=== PATIENT | female | born 1995 | race Caucasian/White ===

== ENCOUNTER 2019-05-11 13:05 | Emergency (ER) | payer OTHER, BC ==
[2019-05-11] MEDS ORDERED: DIAZEPAM 5 MG TABLET ONE (14:49)
[2019-05-11] MEDS ORDERED: IBUPROFEN 400 MG TAB ONE (14:49)
--- NOTE | 2019-05-11 15:41 | RAD REPORT ---
EXAM DESCRIPTION: RAD - Lumbar Spine 3 Views - 05/11/2019 3:33 pm CLINICAL HISTORY: LOWER BACK PAIN Radiculopathy COMPARISON: No comparisons FINDINGS: Vertebral body heights appear maintained. No compression fracture noted. Disc spaces are m aintained. No spondylolysis or spondylolisthesis. Cholecystectomy clips. IMPRESSION: Negative study.
[2019-05-11 16:18] LABS: Urine Blood 3+ (NEG); Urine Glucose NEGATIVE (NEG); Urine Protein 2+ (NEG); Urine pH 5.5 (5.0-7.0)
--- NOTE | 2019-05-11 16:21 | ER ---
Nurse's Notes [facility] Name: Deven Alfaro Age: 23 yrs Sex: Female : 1995 Arrival Date: 05/11/2019 Time: 13:05 Bed 14 Private MD: Diagnosis: Low back pain Presentation: 05/11 13:20 Presenting complaint: Patient states: BACK PAIN AND OVARY PAIN FOR "MONTHS". Transition bp of care: patient was not received from another setting of care. Onset of symptoms is unknown. Risk Assessment: Do you want to hurt yourself or someone else? Patient reports no desire to harm self or others. Initial Sepsis Screen: Does the patient meet any 2 criteria? No. Patient's initial sepsis screen is negative. Does the patient have a suspected source of infection? No. Patient's initial sepsis screen is negative. Care prior to arrival: None. 13:20 Method Of Arrival: Ambulatory bp 13:20 Acuity: SAMI 5 bp Historical: - Allergies: 13:21 Lamictal; bp 13:21 Morphine; bp 13:21 [place]; bp - Home Meds: 13:21 None [Active]; bp - PMHx: 13:21 None; bp - Immunization history:: Adult Immunizations up to date. - Social history:: Smoking status: Patient/guardian denies using tobacco. - Ebola Screening: : No symptoms or risks identified at this time. Screenin:53 Abuse screen: Denies threats or abuse. Denies injuries from another. Nutritional sv screening: No deficits noted. Tuberculosis screening: No symptoms or risk factors identified. Fall Risk None identified. Assessment: 14:50 General: Appears in no apparent distress. uncomfortable, well developed, Behavior is sv calm, cooperative, appropriate for age, Reports that she does not have a ride home, unable to give pt the Valium d/t no ride home. Pt understood, informed Can VINES. Pain: Complains of pain in back. Neuro: Level of Consciousness is awake, alert, obeys commands, Oriented to person, place, time, situation, Gait is steady, Speech is normal. Respiratory: Respiratory effort is even, unlabored, Respiratory pattern is regular, symmetrical. Derm: Skin is pink, warm \\T\\ dry. 16:30 Reassessment: Patient appears in no apparent distress at this time. Patient and/or sv family updated on plan of care and expected duration. Pain level reassessed. Patient is alert, oriented x 3, equal unlabored respirations, skin warm/dry/pink. Vital Signs: 13:21 BP 103 / 80; Pulse 85; Resp 16; Temp 98; Pulse Ox 100% ; Weight 104.33 kg; Height 5 ft. bp (152.40 cm); 13:21 Body Mass Index 44.92 (104.33 kg, 152.40 cm) bp ED Course: 13:05 Patient arrived in ED. as 13:21 Triage completed. bp 13:21 Arm band placed on. bp 13:50 Can Arora PA is PHCP. jmm 13:51 Clive Stern MD is Attending Physician. m 13:53 Fadia Noel, RN is Primary Nurse. sv 13:53 Patient has correct armband on for positive identification. Bed in low position. Call sv light in reach. Door closed. Head of bed elevated. 14:59 Radiology exam delayed due to test not completed at this time. az 15:15 Urine Dipstick--Ancillary (enter results) Sent. sv 15:15 Urine --Ancillary (enter results) Sent. sv 15:34 Lumbar Spine (3 Views) XRAY In Process Unspecified. EDMS 15:45 Awaiting radiology results. sv 16:34 No provider procedures requiring assistance completed. Patient did not have IV access sv during this emergency room visit. Administered Medications: 14:52 Drug: Ibuprofen 800 mg Route: PO; sv 15:30 Follow up: Response: No adverse reaction sv 16:32 Not Given (pt does not have a ride home): Valium 5 mg PO once sv Outcome: 16:20 Discharge ordered by MD. jmm 16:34 Discharged to home ambulatory. sv 16:34 Condition: stable 16:34 Discharge instructions given to patient, Instructed on discharge instructions, follow up and referral plans. medication usage, Demonstrated understanding of instructions, follow-up care, medications, Prescriptions given X 2. 16:34 Patient left the ED. sv Signatures: Dispatcher [employer] EDMS Fadia Noel, BHUPINDER ROE Can Arora PA PA jmm Martinez, Amelia as Peltier, Brian, RN RN Irina Bejarano Corrections: (The following items were deleted from the chart) 15:02 14:50 General: Appears in no apparent distress. uncomfortable, well developed, Behavior sv is calm, cooperative, appropriate for age, sv
--- NOTE | 2019-05-11 16:21 | EDPHYS ---
Physician Documentation [facility] Name: Deven Alfaro Age: 23 yrs Sex: Female : 1995 Arrival Date: 05/11/2019 Time: 13:05 Bed 14 Private MD: ED Physician Clive Stern HPI: 05/11 14:13 This 23 yrs old Female presents to ER via Ambulatory with complaints of Back jmm Pain. 14:13 The patient presents with pain that is acute. Onset: The symptoms/episode jmm began/occurred gradually. The pain radiates to the pelvis. Associated signs and symptoms: Pertinent negatives: abdominal pain, dysuria, fever, numbness, tingling, urinary retention, weakness. Modifying factors: the patient symptoms are aggravated by movement. This is a 23 year old female with no chronic medical conditions that presents to the ED with lower back pain which began 2 weeks ago. Patient denies known injury. Patient states when the pain initially developed she was evaluated by her MANAGER GENERATION with normal US. Since then, the patient has begun her cycle with increased pain. Denies fever. . Historical: - Allergies: 13:21 Lamictal; bp 13:21 Morphine; bp 13:21 [place]; bp - Home Meds: 13:21 None [Active]; bp - PMHx: 13:21 None; bp - Immunization history:: Adult Immunizations up to date. - Social history:: Smoking status: Patient/guardian denies using tobacco. - Ebola Screening: : No symptoms or risks identified at this time. ROS: 14:13 Constitutional: Negative for fever, chills, and weight loss, Cardiovascular: Negative jmm for chest pain, palpitations, and edema, Respiratory: Negative for shortness of breath, cough, wheezing, and pleuritic chest pain, Abdomen/GI: Negative for abdominal pain, nausea, vomiting, diarrhea, and constipation. 14:13 Back: Positive for pain with movement. 14:13 : Positive for pelvic pain, vaginal bleeding, Negative for urinary symptoms. 14:13 All other systems are negative. Exam: 14:13 Head/Face: atraumatic. Eyes: EOMI, no conjunctival erythema appreciated ENT: Moist jmm Mucus Membranes Neck: Trachea midline, Supple Chest/axilla: Normal chest wall appearance and motion. Cardiovascular: Regular rate and rhythm. No edema appreciated Respiratory: Normal respirations, no respiratory distress appreciated Abdomen/GI: Non distended, soft 14:13 Constitutional: The patient appears in no acute distress, alert, awake. 14:13 Back: lower lumbar tenderness on palpation, paraspinal tenderness on palpation, no erythema or induration appreciated,. 14:13 Musculoskeletal/extremity: ROM: intact in all extremities. 14:13 Skin: Appearance: Color: normal in color. 14:13 Neuro: Orientation: is normal, Mentation: is normal, Memory: is normal. 14:13 Psych: Behavior/mood is pleasant, cooperative. Vital Signs: 13:21 BP 103 / 80; Pulse 85; Resp 16; Temp 98; Pulse Ox 100% ; Weight 104.33 kg; Height 5 ft. bp (152.40 cm); 13:21 Body Mass Index 44.92 (104.33 kg, 152.40 cm) bp MDM: 14:13 Patient medically screened. la 16:19 Data reviewed: vital signs, nurses notes. Counseling: I had a detailed discussion with [facility] the patient and/or guardian regarding: the historical points, exam findings, and any diagnostic results supporting the discharge/admit diagnosis, radiology results, the need for outpatient follow up, to return to the emergency department if symptoms worsen or persist or if there are any questions or concerns that arise at home. 17:18 ED course: Imaging studies negative. Patient is point tender in the lumbar region and [facility] paraspinal region. Symptoms may be due to MS pain opposed to pelvic pain with radiation. Patient is given strict return precautions. Patient understood and agrees with the plan of care. . 05/11 15:14 Order name: Urine Dipstick--Ancillary (enter results); Complete Time: 16:19 05/11 15:14 Order name: Urine --Ancillary (enter results); Complete Time: 16:19 05/11 14:48 Order name: Urine Dipstick-Ancillary (obtain specimen); Complete Time: 15:15 [facility] 05/11 14:48 Order name: Lumbar Spine (3 Views) XRAY; Complete Time: 16:08 [facility] 05/11 14:48 Order name: Urine Test (obtain specimen); Complete Time: 15:14 [facility] Administered Medications: 14:52 Drug: Ibuprofen 800 mg Route: PO; sv 15:30 Follow up: Response: No adverse reaction sv 16:32 Not Given (pt does not have a ride home): Valium 5 mg PO once sv Disposition: 05/12 06:24 Co-signature as Attending Physician, Clive Stern MD I agree with the assessment and la plan of care. Disposition: 05/11/19 16:20 Discharged to Home. Impression: Low back pain. - Condition is Stable. - Discharge Instructions: Back Pain, Adult. - Prescriptions for Cephalexin 500 mg Oral Capsule - take 1 capsule by ORAL route every 12 hours for 10 days; 20 capsule. Zanaflex 4 mg Oral Tablet - take 1 tablet by ORAL route every 8 hours As needed; 20 tablet. - Medication Reconciliation Form, Thank You Letter, Antibiotic Education, Prescription Opioid Use form. - Follow up: Private Physician; When: 2 - 3 days; Reason: Recheck today's complaints, Continuance of care, Re-evaluation by your physician. Signatures: Dispatcher [employer] Fadia Voss RN RN sv Anderson, Corey, MD MD cha Mickail, Joel, PA PA Angel Kraus, RN RN bp Corrections: (The following items were deleted from the chart) 05/11 16:34 16:20 05/11/2019 16:20 Discharged to Home. Impression: Low back pain. Condition is sv Stable. Forms are Medication Reconciliation Form, Thank You Letter, Antibiotic Education, Prescription Opioid Use. Follow up: Private Physician; When: 2 - 3 days; Reason: Recheck today's complaints, Continuance of care, Re-evaluation by your physician. donte
[2019-05-11 17:11] VITALS: BP 103/80; TEMP 98; O2SAT 100
== END 2019-05-11 16:34 | disposition home or self-care (01) ==
LOC: ER 13:05
DX: M54.5 Low back pain (principal); Z88.5 Allergy status to narcotic agent; Z88.8 Allergy status to other drugs, medicaments and biological substances
CPT/HCPCS: 72100; 81003; 81025; 99284

== ENCOUNTER 2019-11-09 11:12 | Emergency (ER) | payer OTHER, BC ==
--- OUTSIDE RECORDS SUMMARY | 2019-11-09 11:18 | XMS REPORT ---
:1995 Author Organization [facility] t Address [address] [place] [address] Dr. Villalpando [address] [place] [id number] Care Team Providers Name Role Phone Unavailable Unavailable Unavailable Problems This patient has no known problems. Allergies, Adverse Reactions, Alerts This patient has no known allergies or adverse reactions. Medications This patient has no known medications. Encounters Start End Encounter Admission Attending Care Care Encounter Date/Time Date/Time Type Type Clinicians Facility Department ID 2019-09-03 2019-09-03 Emergency E [id number] 21:28:00 21:28:00
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
[2019-11-09] MEDS ORDERED: LIDOCAINE 1% MPF 2 ML AMPULE ONE (11:48)
[2019-11-09] MEDS ORDERED: AZITHROMYCIN 250 MG TAB ONE (11:48)
[2019-11-09] MEDS ORDERED: CEFTRIAXONE 250 MG/VIAL ONE (11:48)
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
[2019-11-09 12:16] VITALS: BP 110/72; TEMP 98; O2SAT 100
== END 2019-11-09 12:10 | disposition home or self-care (01) ==
LOC: ER 11:12
DX: Z04.41 Encounter for examination and observation following alleged adult rape (principal); F32.9 Major depressive disorder, single episode, unspecified; Z88.5 Allergy status to narcotic agent; Z88.8 Allergy status to other drugs, medicaments and biological substances
CPT/HCPCS: J2001; J0696; 96372; 99283

== ENCOUNTER 2020-01-05 10:18 | Emergency (ER) | payer BC ==
--- NOTE | 2020-01-05 11:24 | EDPHYS ---
Physician Documentation [facility] Name: Deven Alfaro Age: 24 yrs Sex: Female : 1995 Arrival Date: 01/05/2020 Time: 10:20 Bed 17 Private MD: ED Physician Bhupendra Rapp HPI: 01/04 11:21 This 24 yrs old Female presents to ER via Ambulatory with complaints of snw Nausea, Anxiety. 11:21 The patient presents to the emergency department with nausea. Onset: The snw symptoms/episode began/occurred gradually, at an unknown time. Possible causes: anxiety and panic attacks. Associated signs and symptoms: Pertinent positives: nausea, Pertinent negatives: abdominal pain, belching, constipation, dysuria, fever, hematuria, vaginal discharge. Severity of symptoms: At their worst the symptoms were moderate in the emergency department the symptoms are unchanged. The patient has experienced similar episodes in the past, pt saw psych from 17yr-19yr. Pt was on lexapro but began having SI so was weaned off. The patient has not recently seen a physician. 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 - Social history:: Smoking status: Patient reports the use of cigarette tobacco products, smokes one pack cigarettes per day. ROS: 11:20 Constitutional: Negative for fever, chills, and weight loss, Eyes: Negative for injury, snw pain, redness, and discharge, ENT: Negative for injury, pain, and discharge, Neck: Negative for injury, pain, and swelling, Cardiovascular: Negative for chest pain, palpitations, and edema, Respiratory: Negative for shortness of breath, cough, wheezing, and pleuritic chest pain, Back: Negative for injury and pain, : Negative for injury, bleeding, discharge, and swelling, MS/Extremity: Negative for injury and deformity, Skin: Negative for injury, rash, and discoloration, Neuro: Negative for headache, weakness, numbness, tingling, and seizure. 11:20 Abdomen/GI: Positive for nausea, Negative for abdominal pain. 11:20 Psych: Positive for anxiety, panic attacks. Exam: 11:20 Constitutional: This is a well developed, well nourished patient who is awake, alert, snw and in no acute distress. Head/Face: Normocephalic, atraumatic. Eyes: Pupils equal round and reactive to light, extra-ocular motions intact. Lids and lashes normal. Conjunctiva and sclera are non-icteric and not injected. Cornea within normal limits. Periorbital areas with no swelling, redness, or edema. ENT: Nares patent. No nasal discharge, no septal abnormalities noted. Tympanic membranes are normal and external auditory canals are clear. Oropharynx with no redness, swelling, or masses, exudates, or evidence of obstruction, uvula midline. Mucous membranes moist. Neck: Trachea midline, no thyromegaly or masses palpated, and no cervical lymphadenopathy. Supple, full range of motion without nuchal rigidity, or vertebral point tenderness. No Meningismus. Chest/axilla: Normal chest wall appearance and motion. Nontender with no deformity. No lesions are appreciated. Cardiovascular: Regular rate and rhythm with a normal S1 and S2. No gallops, murmurs, or rubs. Normal PMI, no JVD. No pulse deficits. Respiratory: Lungs have equal breath sounds bilaterally, clear to auscultation and percussion. No rales, rhonchi or wheezes noted. No increased work of breathing, no retractions or nasal flaring. Abdomen/GI: Soft, non-tender, with normal bowel sounds. No distension or tympany. No guarding or rebound. No evidence of tenderness throughout. Back: No spinal tenderness. No costovertebral tenderness. Full range of motion. Skin: Warm, dry with normal turgor. Normal color with no rashes, no lesions, and no evidence of cellulitis. MS/ Extremity: Pulses equal, no cyanosis. Neurovascular intact. Full, normal range of motion. Neuro: Awake and alert, GCS 15, oriented to person, place, time, and situation. Cranial nerves II-XII grossly intact. Motor strength 5/5 in all extremities. Sensory grossly intact. Cerebellar exam normal. Normal gait. 11:20 Psych: Behavior/mood is pleasant, cooperative, anxious, Affect is Oriented to person, place, time. Vital Signs: 10:32 BP 120 / 73; Pulse 76; Resp 18; Temp 97.9(TE); Pulse Ox 99% on R/A; Weight 108.86 kg tw2 (R); Height 5 ft. 0 in. (152.40 cm); Pain 0/10; 10:32 Body Mass Index 46.87 (108.86 kg, 152.40 cm) tw2 MDM: 10:54 Patient medically screened. snw 11:25 Data reviewed: vital signs, nurses notes. Data interpreted: Pulse oximetry: on room air snw is 99 %. Interpretation: normal. Counseling: I had a detailed discussion with the patient and/or guardian regarding: the historical points, exam findings, and any diagnostic results supporting the discharge/admit diagnosis, the need for outpatient follow up, for definitive care, to return to the emergency department if symptoms worsen or persist or if there are any questions or concerns that arise at home. Special discussion: Based on the history and exam findings, there is no indication for further emergent testing or inpatient evaluation. I discussed with the patient/guardian the need to see the primary care provider for further evaluation of the symptoms. I discussed with the patient/guardian the need to see the psychiatrist for further evaluation of the symptoms. 01/04 11:24 Order name: Urine Dipstick--Ancillary (enter results) bd 01/04 10:46 Order name: Urine Test (obtain specimen); Complete Time: 11:23 snw 01/04 10:46 Order name: Urine Dipstick-Ancillary (obtain specimen); Complete Time: 11:23 snw 01/04 11:24 Order name: Urine --Ancillary (enter results) bd Administered Medications: 11:33 Drug: Phenergan 25 mg Route: PO; rb1 11:44 Follow up: Response: Medication administered at discharge. rb1 Disposition: 01/05/20 11:23 Discharged to Home. Impression: Anxiety disorder, unspecified, Nausea. - Condition is Stable. - Discharge Instructions: Panic Attacks, High-Fiber Diet, Nausea, Adult, Generalized Anxiety Disorder. - Prescriptions for promethazine 25 mg Oral Tablet - take 1 tablet by ORAL route every 6 hours As needed; 20 tablet. - Work release form, Medication Reconciliation Form, Thank You Letter, Antibiotic Education, Prescription Opioid Use form. - Follow up: Emergency Department; When: As needed; Reason: Worsening of condition. Follow up: Private Physician; When: 2 - 3 days; Reason: Recheck today's complaints, Continuance of care, Re-evaluation by your physician. Addendum: 01/06/2020 13:31 Co-signature as Attending Physician, Bhupendra Rapp MD I agree with the assessment and k dr plan of care. Signatures: Dispatcher [employer] EDMD Bhupendra Rapp MD MD [facility] Caryl Duarte, CYCLE MANAGER-C CYCLE MANAGER-Csnw Tatyana Herman, RN RN rb1 Jennifer Quiñones RN RN tw2 Corrections: (The following items were deleted from the chart) 01/04 11:45 11:23 01/05/2020 11:23 Discharged to Home. Impression: Anxiety disorder, unspecified; rb1 Nausea. Condition is Stable. Forms are Medication Reconciliation Form, Thank You Letter, Antibiotic Education, Prescription Opioid Use. Follow up: Emergency Department; When: As needed; Reason: Worsening of condition. Follow up: Private Physician; When: 2 - 3 days; Reason: Recheck today's complaints, Continuance of care, Re-evaluation by your physician. snw
--- NOTE | 2020-01-05 11:24 | ER ---
Nurse's Notes [facility] Name: Deven Alfaro Age: 24 yrs Sex: Female : 1995 Arrival Date: 01/05/2020 Time: 10:20 Bed 17 Private MD: Diagnosis: Anxiety disorder, unspecified;Nausea Presentation: 01/04 10:32 Chief complaint: Patient states: i keep having panic attacks and horrible horrible tw2 nausea, i have zofran but it is not doing anything. Coronavirus screen: Patient denies a cough. Patient denies shortness of breath or difficulty breathing. Patient denies measured and/or subjective temperature greater than 100.4F prior to today's visit. Patient denies travel on a cruise ship or to a country the [facility] currently lists as an affected area. Patient denies contact with known and/or suspected case of COVID-19. Ebola Screen: Patient denies travel to an Ebola-affected area in the 21 days before illness onset. Initial Sepsis Screen: Does the patient meet any 2 criteria? No. Patient's initial sepsis screen is negative. Does the patient have a suspected source of infection? No. Patient's initial sepsis screen is negative. Risk Assessment: Do you want to hurt yourself or someone else? Patient reports no desire to harm self or others. Onset of symptoms was January 05, 2020. 10:32 Method Of Arrival: Ambulatory tw2 10:32 Acuity: [facility]I 3 tw2 Triage Assessment: 10:33 General: Appears in no apparent distress. uncomfortable, obese, well groomed, Behavior tw2 is cooperative, appropriate for age, anxious. Pain: Denies pain. GI: Reports nausea. 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 - Social history:: Smoking status: Patient reports the use of cigarette tobacco products, smokes one pack cigarettes per day. Screenin:00 Abuse screen: Denies threats or abuse. Nutritional screening: No deficits noted. rb1 Tuberculosis screening: No symptoms or risk factors identified. Fall Risk None identified. Assessment: 11:00 General: Appears in no apparent distress. Behavior is calm, cooperative. Pain: Denies rb1 pain. Neuro: Level of Consciousness is awake, alert, obeys commands, Oriented to person, place, time, situation. Neuro: Reports Anxiety with panic attacks.. Cardiovascular: Capillary refill < 3 seconds. Respiratory: Airway is patent Respiratory effort is even, unlabored, Respiratory pattern is regular, symmetrical. GI: Abdomen is non-distended, Reports nausea. : No signs and/or symptoms were reported regarding the genitourinary system. Derm: Skin is pink, warm \T\ dry. Musculoskeletal: Range of motion: intact in all extremities. Vital Signs: 10:32 BP 120 / 73; Pulse 76; Resp 18; Temp 97.9(TE); Pulse Ox 99% on R/A; Weight 108.86 kg tw2 (R); Height 5 ft. 0 in. (152.40 cm); Pain 0/10; 10:32 Body Mass Index 46.87 (108.86 kg, 152.40 cm) tw2 ED Course: 10:20 Patient arrived in ED. as 10:33 Triage completed. tw2 10:33 Caryl Duarte FNP-C [facility]. snw 10:33 Bhupendra Rapp MD is Attending Physician. snw 10:34 Arm band placed on. tw2 11:00 Patient has correct armband on for positive identification. Bed in low position. Call rb1 light in reach. Side rails up X 1. Pulse ox on. NIBP on. 11:02 Tatyana Herman, RN is Primary Nurse. rb1 11:44 No provider procedures requiring assistance completed. Patient did not have IV access rb1 during this emergency room visit. Administered Medications: 11:33 Drug: Phenergan 25 mg Route: PO; rb1 11:44 Follow up: Response: Medication administered at discharge. rb1 Outcome: 11:23 Discharge ordered by . snw 11:44 Discharged to home ambulatory. rb1 11:44 Condition: stable 11:44 Discharge instructions given to patient, Instructed on discharge instructions, follow up and referral plans. medication usage, Demonstrated understanding of instructions, follow-up care, medications, Prescriptions given X 1. 11:45 Patient left the ED. rb1 Signatures: Caryl Duarte, INDIVIDUALIZED EDUCATION PLAN AIDE-C INDIVIDUALIZED EDUCATION PLAN AIDE-Nayeli Sidhu Rebecca, RN RN rb1 Jennifer Quiñones RN RN tw2
[2020-01-05] MEDS ORDERED: PROMETHAZINE 25 MG TABLET ONE (11:40)
[2020-01-05 11:50] VITALS: BP 120/73; TEMP 97.9; O2SAT 99
[2020-01-05 12:08] LABS: Urine Blood NEGATIVE (NEG); Urine Glucose NEGATIVE (NEG); Urine Protein TRACE (NEG); Urine Specific Gravity 1.025 (1.005-1.030)
--- OUTSIDE RECORDS SUMMARY | 2020-01-05 15:03 | XMS REPORT | Continuity of Care Document ---
:1995 Author Organization [facility] Care Team Providers Name Role Phone [facility] Unavailable Un available Problems Problem Status Onset Classification Date Comments Sourc e Date Reported Acute 09/04/19 09/06/2019 The pharyngitis, 20 [place] [facility] unspecified THROAT ISSUES Active 09/03/19 MH The 20 [place] Right upper 07/15/20 01/24/2019 The quadrant pain 18 [place] Unspecified 07/07/20 01/24/2019 The abdominal pain 18 [place] ABD PAIN Active 07/07/20 The 18 [place] Calculus of 06/25/20 01/07/2019 The gallbladder with 18 [place] acute cholecystitis without obstruction SYMPTOMATIC Active 06/18/20 The CHOLEITHIASIS 18 [place] GALLBLADDER Active 06/18/20 The ISSUES 18 [place] Bipolar Active Problem 08/07/2013 The (qualifier value) [facility] Nausea with 01/24/2019 The vomiting, [place] unspecified 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 Nicotine 01/24/2019 The dependence, [facility] cigarettes, uncomplicated Obesity, 01/07/2019 The unspecified [facility] Bipolar disorder, 01/07/2019 M H The unspecified [place] [facility] Body mass index 01/07/2019 The (BMI) 45.0-49.9, [facility] adult CALCULUS OF Active The GALLBLADDER W/[facility] CHOLECYSTITI Medications Medication Details Route Status Patient Ordering Order Source Instructions Provider Date Magic Mouthwash 5 mL, PO, QID, Active M H The (Benadryl/Lidocai # 100 mL, 0 2019 [place] ne/Maalox/) 1:1:1 Refill(s) Ibuprofen 800 MG 800 mg = 1 tab, Active MH The Oral Tablet PO, Q8H, PRN 2019 [place] [facility] [Motrin] Pain, Take with food, # 30 tab, 0 Refill(s) Dexamethasone = 14 kg to < 17 Inactive H The kg, Asthma, 2019 [place] Start date: 09/04/19 0:45:00 LASER CUTTER, Stop date: 09/04/19 0:45:00 LASER CUTTER, Pediatric Dosing Tylenol Notes: Max Inactive The acetaminophen 2019 [place] 4000 mg/day (4 gm/day). (Same as: Tylenol Extra Strength) Magic Mouthwash Notes: Magic No Longer H The (Benadryl/Lidocai mouth wash Active 2019 [place] ne/Maalox/) 1:1:1 contains:Benadr yl/Lidocaine/Ma alox/) 1:1:1; total volume 5 ml Morphine 4 mg, Route: Inactive The IVP, ONCE, 2017 [place] Dosing Weight 105.085, kg, Priority: STAT, Start date: 07/07/18 4:34:00 LASER CUTTER, Stop date: 07/07/18 4:34:00 LASER CUTTER Ketorolac 15 mg, Route: Inactive The IVP, Drug form: 2017 [place] INJ, ONCE, Dosing Weight 105.085, kg, Priority: STAT, Start date: 07/07/18 4:33:00 LASER CUTTER, Stop date: 07/07/18 4:33:00 LASER CUTTER remove patch Notes: WASTE: Inactive T he F/P - P Waste 2017 [place] Black; E - P Waste Black Habitrol Notes: (Same No Longer The as: Habitrol) Active 2017 [place] "Remove old patch before application of new patch" WASTE: F/P - P Waste Black; E - P Waste Black Acetaminophen 300 See No Longer T he MG / Codeine Instructions, Active 2017 [place] [facility] Phosphate 30 MG PRN for pain, Oral Tablet 1-2 tab PO [Tylenol with Q4-6H not to Codeine #3] exceed 4000 mg acetaminophen per day, # 30 tab, 0 Refill(s) Docusate Sodium Notes: (Same No Longer H The 100 MG Oral as: Colace) (Do Active 2017 [facility] Capsule [Colace] Not Crush) chlorhexidine Notes: (Same No Longer The gluconate 40 As: Hibiclens) Active 2017 [facility] MG/ML Medicated Liquid Soap Nicotine Notes: (Same Inactive The as: Habitrol) [facility] "Remove old patch before application of new patch" WASTE: F/P - P Waste Black; E - P Waste Black Acetaminophen 300 Notes: Do not No Longer The MG / Codeine exceed 4gm/day Active 2017 [facility] Phosphate 30 MG of Oral Tablet acetaminophen. [Tylenol with (Same as: Codeine #3] Tylenol with Codeine # 3) hydromorphone Route: IV, Drug Inactive H The (ANES) form: INJ, 2017 [place] ONCE, Stop date: 06/18/18 19:26:00 LASER CUTTER ketOROLAC (ANES) IV, ONCE Inactive Th e 2017[place] neostigmine Route: IV, Drug Inactive The (ANES) form: INJ, 2017 [place] , Stop date: 06/18/18 19:26:00 LASER CUTTER glycopyrrolate Route: IV, Drug Inactive The (ANES) form: [id number] ONCE, Stop date: 06/18/18 19:26:00 LASER CUTTER dexamethasone Route: IV, Drug Inactive H The (ANES) form: INJ, [place] ONCE, Stop date: 06/18/18 19:20:00 LASER CUTTER ondansetron Route: IV, Drug Inactive The (ANES) form: INJ, 2017 [place] ONCE, Stop date: 06/18/18 19:05:00 LASER CUTTER fentaNYL (ANES) Route: IV, Drug Inactive The form: [id number] ONCE, Stop date: 06/18/18 19:05:00 LASER CUTTER lidocaine (ANES) Route: IV, Drug Inactive The form: [id number] ONCE, Stop date: 06/18/18 19:00:00 LASER CUTTER famotidine (ANES) Route: IV, Drug Inactive 06/19 The form: [id number] [place] , Stop date: 06/18/18 19:00:00 LASER CUTTER midazolam (ANES) Route: IV, Drug Inactive The form: SOLN, 2017 [place] ONCE, Stop date: 06/18/18 19:00:00 LASER CUTTER rocuronium (ANES) Route: IV, Drug Inactive 06/19 The form: INJ, 2017 [place] ONCE, Stop date: 06/18/18 19:00:00 LASER CUTTER propofol (ANES) Route: IV, Drug Inactive The form: INJ, 2017 [place] ONCE, Stop date: 06/18/18 19:00:00 LASER CUTTER fentaNYL (ANES) Route: IV, Drug Inactive The form: INJ, 2017 [place] ONCE, Stop date: 06/18/18 19:00:00 LASER CUTTER Zosyn Notes: (Same No Longer The as: Zosyn) Active 2017 [place] Dosing based on Piperacillin component MEDICATION WASTE Product Size: 3375 mg Product Wasted: ___ mg piperacillin-tazo Route: IV, Drug Inactive 06/19 The bactam (ANES) form: INJ, 2017 [place] [facility] ONCE, Stop date: 06/18/18 18:55:00 LASER CUTTER Ondansetron Notes: (Same No Longer Th e as: Zofran) Active 2017 [place] MEDICATION WASTE Product Size: 4 mg Product Wasted: ___ mg Fentanyl Notes: (Same No Longer The as: Sublimaze) Active 2017 [place] Preservative free. Morphine Notes: (Same Inactive The as:MORPhine 2017 [place] Sulfate) Naloxone Notes: Same as No Longer The Narcan Active 2017 [place] Flumazenil Notes: (Same No Longer The as: Romazicon) Active 2017 [place] Lactated Ringers Route: IV, Inactive The Injection IV Total Volume: 2017 [place] [facility] (ANES) 1000 mL 1,000, Start date: 06/18/18 18:11:00 LASER CUTTER, Stop date: 06/18/18 19:11:00 LASER CUTTER Lactated Ringers 1,000 mL, Rate: No Longer 06/18 The IV 1,000 mL 40 ml/hr, Active 2017 [place] Infuse over: 25 hr, Route: IV, Dosing Weight 106.136 kg, Total Volume: 1,000, Start date: 06/18/18 17:02:00 LASER CUTTER, Duration: 30 day, Stop date: 07/18/18 17:01:00 LASER CUTTER, 2.17, m2 Fentanyl Notes: (Same Inactive The as: Sublimaze) [address] [place] [address] Preservative free. Naloxone Notes: Same as Inactive The Narcan 2017 [place] Ephedrine Notes: final Inactive The concentration 5 2017 [place] mg/mL Diphenhydramine Notes: (Same Inactive The as: Benadryl) [address] [place] [address] Meperidine Notes: (Same Inactive The as: Demerol) [address] [place] [address] "Use Precaution in Elderly, Seizure disorders, and Renal impairment&quot ; Morphine Notes: (Same Inactive The as:MORPhine [address] [place] [address] Sulfate) Flumazenil Notes: (Same Inactive The as: Romazicon) [address] [place] [address] Oxycodone Notes: (Same Inactive The as: Roxicodone) [address] [place] [address] Promethazine 6.25 mg, 25 mL, Inactive The Route: IVPB, 2017 [place] Drug form: SOLN, ONCE, Dosing Weight 108.227, kg, PRN Nausea & Vomiting, Start date: 06/18/18 13:52:00 LASER CUTTER Dexamethasone Notes: Inactive The Concentration: 2017 [place] 4mg/ml Ondansetron Notes: (Same Inactive The as: Zofran) [address] [place] [address] MEDICATION WASTE Product Size: 4 mg Product Wasted: ___ mg 72 HR Scopolamine Notes: Change Inactive The 0.0139 MG/HR patch every 72 2017 [facility] Transdermal Patch hours (Same as: Transderm-Scop) Lorazepam Notes: (Same Inactive The as: Ativan) [address] [place] [address] Labetalol Notes: (Same Inactive The as: Normodyne, [address] [place] [address] Trandate) Push over 2 minutes Give bolus over 2-3 minutes. Hydralazine Notes: (Same Inactive The as: Apresoline) [address] [place] [address] s Push over 5 minutes ANES Enalaprilat Notes: (Same Inactive H The as: Vasotec-IV) 2017 [place] esmolol Notes: (Same Inactive The as: Brevibloc) 2017 [place] Acetaminophen Notes: Max Inactive The acetaminophen 2017 [place] 4000 mg/day (4 gm/day). (Same as: Tylenol Extra Strength) Metoprolol Notes: (Same Inactive The as: Lopressor) 2017 [place] Push over 2 minutes Zosyn Notes: (Same Inactive The as: Zosyn) 2017 [place] Dosing based on Piperacillin component MEDICATION WASTE Product Size: 4500 mg Product Wasted: ___ mg Dilaudid Notes: Same as: No Longer Th e Dilaudid Active 2017 [place] Ketorolac 15 mg, Route: Inactive The IVP, Drug form: 2017 [place] INJ, ONCE, Dosing Weight 108.227, kg, Priority: STAT, Start date: 06/18/18 10:34:00 LASER CUTTER, Stop date: 06/18/18 10:34:00 LASER CUTTER Dilaudid Notes: Same as Inactive The Dilaudid 2017 [place] Hydromorphone Notes: Same as: Inactive H The Dilaudid 2017 [place] Sodium Chloride 1,000 mL, 1000 Inactive The 0.9% (Bolus) IV ml/hr, Infuse 2017 [facility] Over: 1 hr, Route: IV, 1,000, Drug form: INJ, ONCE, Priority: STAT, Dosing Weight 108.227 kg, Start date: 06/18/18 9:17:00 LASER CUTTER, Stop date: 06/18/18 9:17:00 LASER CUTTER MiraLax oral 17 gm, PO, Active [place] The powder for Daily, # 527 2013 [place] [facility] reconstitution gm, 0 Refill(s) magnesium citrate 300 mL, Route: Inactive Xanderalex 08/05 The PO, Drug Form: 2013 [place] LIQ, Dosing Weight 81.818, kg, ONCE, Start date: 08/05/13 9:00:00, Stop date: 08/05/13 9:00:00(Same as: Citrate of Magnesia) lithium 300 mg 0 Refill(s) Active e oral tablet 2013 [place] trazodone 100 mg 0 Refill(s) Active The oral tablet 2013 [place] Allergies, Adverse Reactions, Alerts Substance Category Reaction Severity Reaction Status Date Comments S ource type Reported morphine Assertion Drug Active allergy [place] s [place] Assertion Drug Active The allergy [place] s La[place] Assertion Drug Active e allergy [place] [facility] Immunizations No Data Provided for This Section Results Order Name Results Value Reference Date Interpretation Comments Hanh rce Range IMMUNOLOGY [place] Scr Negative Negative 09/04 The (09/03/19 11:39 PM) /2019 [facility] nds RAPID Grp A Strep Negative Negative 09/04 The Scr (09/03/19 11:39 PM) /2019 [facility] nds CHEM PANEL A/G Ratio 1.1 0.7 - 1.6 07/07 The [facility] CHEM PANEL Albumin Lvl 3.8 3.5 - 5.0 07/07 The [place] CHEM PANEL ALT 29 0 - 65 07/07 The [place] CHEM PANEL AST 18 0 - 37 07/07 The [place] CHEM PANEL Globulin 3.6 2.7 - 4.2 07/07 The [place] CHEM PANEL Bili Unable to 0.0 - 1.0 07/07 The Indirect Calculate [facility] CHEM PANEL Bili Total 0.2 0.2 - 1.3 07/07 The [place] CHEM PANEL Alk Phos 91 39 - 136 07/07 The [place] CHEM PANEL Bili Direct <0.1 0.0 - 0.3 07/07 The [place] CHEM PANEL Total 7.4 6.4 - 8.4 07/07 The Protein [facility] CHEM PANEL Lipase Lvl 168 73 - 393 07/07 The [facility] ELECTROLYT AGAP 13.7 10.0 - 12 MH The ES 20.0 [facility] ELECTROLYT eGFR 130 07/07 Result The ES Comment: [place] eGFR is calculated using the CKD-EPI formula. In most young, healthy individuals the eGFR will be >90 mL/min/1.73m2 . The eGFR declines with age. An eGFR of 60-89 may be normal in some populations, particularly the elderly, for whom the CKD-EPI formula has not been extensively validated. Use of the eGFR is not recommended in the following populations:< br/>
Nelli viduals with unstable creatinine concentration s, including patients and those with serious co-morbid conditions.<b r/>
Patie nts with extremes in muscle mass or diet.

The data above are obtained from the National Kidney Disease Education Program (NKDEP) which additionally recommends that when the eGFR is used in patients with extremes of body mass index for purposes of drug dosing, the eGFR should be multiplied by the estimated BMI. ELECTROLYT Creatinine 0.61 0.50 - 12/10 MH The ES Lvl 1.40 [place] ELECTROLYT BUN 11 7 - 22 12 MH The [place] ELECTROLYT Glucose Lvl 93 70 - 99 12 MH The [place] ELECTROLYT CO2 26 24 - 32 12 MH The [place] ELECTROLYT Chloride Lvl 107 95 - 109 12/ MH The [place] ELECTROLYT Potassium 3.7 3.5 - 5.1 07/07 [facility] ELECTROLYT Sodium Lvl 143 135 - 145 12/10 MH The [place] ELECTROLYT Calcium Lvl 8.9 8.5 - 10.5 12/10 MH The [facility] ENDOCRINOL S Preg Negative Negative 07/07 MH The OGY *NA* /2017 [place] (07/07/18 4:55 AM) HEMATOLOGY MPV 8.1 7.4 - 10.4 1210 MH [place] HEMATOLOGY Platelet 311 133 - 450 12/10 MH The [place] HEMATOLOGY MCH 28.6 27.0 - 12/10 MH The 31.0 [place] HEMATOLOGY MCHC 33.4 32.0 - 1210 MH The 36.0 [place] HEMATOLOGY MCV 85.6 80.0 - 1210 MH The 98.0 [place] HEMATOLOGY Hct 39.9 36.0 - 1210 MH The 48.0 [place] HEMATOLOGY RDW 13.7 11.5 - 1210 MH The 14.5 /2017 [place] HEMATOLOGY RBC 4.66 4.20 - 12/10 MH The 5.40 /2017 [place] HEMATOLOGY Hgb 13.3 12.0 - 1210 MH The 16.0 /2017 [place] HEMATOLOGY WBC 13.5 3.7 - 10.4 12/10 MH The /2017 [place] HEMATOLOGY Eosinophils 0.2 0.0 - 0.5 12/10 MH The # [place] HEMATOLOGY Segs 61.9 45.0 - 1210 MH The 75.0 [facility] HEMATOLOGY Neutrophils 8.4 1.5 - 8.1 12/10 MH The # [place] HEMATOLOGY Basophils 0.3 0.0 - 1.0 12/10 MH The /2017 [place] HEMATOLOGY Lymphocytes 4.2 1.0 - 5.5 12/10 MH The # [place] HEMATOLOGY Monocytes # 0.7 0.0 - 0.8 12/10 MH The /2017 [place] HEMATOLOGY Lymphocytes 31.0 20.0 - 1210 MH The 40.0 [facility] HEMATOLOGY Monocytes 5.4 2.0 - 12.0 12/10 MH The /2017 [place] HEMATOLOGY Eosinophils 1.4 0.0 - 4.0 12/10 MH The [place] URINE AND UA <=1.0 0.1 - 1.0 07/07 MH The STOOL Urobilinogen mg/dL /2017[place] URINE AND UA Mucus Few /LPF None Seen 07/07 MH The STOOL /LPF /2017 [place] URINE AND UA RBC 2 0 - 2 07/07 MH The STOOL /2017[place] URINE AND UA WBC <1 0 - 5 07/07 MH The STOOL /2017 [place] URINE AND UA Spec Grav 1.014 <=1.030 07/07 MH The STOOL /2017 [place] URINE AND UA Turbidity Clear Clear 07/07 The STOOL (07/07/18 4:55 AM) /2017 [place] [facility] URINE AND UA Color Yellow Yellow 07/07 The STOOL *NA* /2017[place] (07/07/18 4:55 AM) URINE AND UA Protein Negative Negative 07/07 The STOOL mg/dL mg/dL /2017[place] URINE AND UA pH 5.5 5.0 - 8.0 07/07 MH The STOOL [place] URINE AND UA Ketones Negative Negative 07/07 The STOOL mg/dL mg/dL /2017 [place] URINE AND UA Glucose Negative Negative 07/07 The STOOL mg/dL mg/dL /2017 [place] URINE AND UA Leuk Est Negative Negative 07/07 The STOOL (07/07/18 4:55 AM) /2017 [place] URINE AND UA Nitrite Negative Negative 07/07 The STOOL (07/07/18 4:55 AM) /2017 [place] URINE AND UA Sq Epi Moderate Few /LPF 07/07 The STOOL /LPF /2017 [place] URINE AND UA Blood Negative Negative 07/07 The STOOL (07/07/18 4:55 AM) /2017 [place] URINE AND UA Bili Negative Negative 07/07 The STOOL *NA* /2017 [facility] (07/07/18 4:55 AM) HEMATOLOGY MPV 8.0 7.4 - 10.4 06/20 The [facility] HEMATOLOGY Platelet 241 133 - 450 06/20 The [facility] HEMATOLOGY MCH 29.2 27.0 - 06/20 The 31.0 [facility] HEMATOLOGY MCV 86.7 80.0 - 06/20 The 98.0 [place] HEMATOLOGY Hgb 11.6 12.0 - 06/20 The 16.0 [facility] HEMATOLOGY Hct 34.4 36.0 - 06/20 The 48.0 [facility] HEMATOLOGY WBC 10.3 3.7 - 10.4 06/20 The [place] HEMATOLOGY RBC 3.97 4.20 - 06/20 The 5.40 [facility] HEMATOLOGY RDW 14.3 11.5 - 06/20 The 14.5 [facility] HEMATOLOGY MCHC 33.7 32.0 - 06/20 The 36.0 [facility] CHEM PANEL eGFR 130 06/19 Result Comment: [place] eGFR is calculated using the CKD-EPI formula. In most young, healthy individuals the eGFR will be >90 mL/min/1.73m2 . The eGFR declines with age. An eGFR of 60-89 may be normal in some populations, particularly the elderly, for whom the CKD-EPI formula has not been extensively validated. Use of the eGFR is not recommended in the following populations:< br/>
Nelli viduals with unstable creatinine concentration s, including patients and those with serious co-morbid conditions.<b r/>
Patie nts with extremes in muscle mass or diet.

The data above are obtained from the National Kidney Disease Education Program (NKDEP) which additionally recommends that when the eGFR is used in patients with extremes of body mass index for purposes of drug dosing, the eGFR should be multiplied by the estimated BMI. CHEM PANEL Globulin 3.1 2.7 - 4.2 06/19 The [facility] CHEM PANEL A/G Ratio 1.0 0.7 - 1.6 06/19 The [facility] CHEM PANEL AST 21 0 - 37 06/19 The [place] CHEM PANEL AGAP 11.8 10.0 - 06/19 The 20.0 [facility] CHEM PANEL B/C Ratio 13 6 - 25 06/19 The [facility] CHEM PANEL Alk Phos 69 39 - 136 06/19 The [place] CHEM PANEL Bili Total 0.3 0.2 - 1.3 06/19 The [place] CHEM PANEL CO2 25 24 - 32 06/19 The [place] CHEM PANEL Calcium Lvl 8.4 8.5 - 10.5 06/19 The [facility] CHEM PANEL ALT 24 0 - 65 06/19 The [place] CHEM PANEL Total 6.1 6.4 - 8.4 06/19 The Protein [facility] CHEM PANEL Albumin Lvl 3.0 3.5 - 5.0 06/19 The [facility] CHEM PANEL Creatinine 0.61 0.50 - 06/19 The Lvl 1.40 [facility] CHEM PANEL Chloride Lvl 109 95 - 109 06/19 The [place] CHEM PANEL Sodium Lvl 142 135 - 145 06/19 The [place] CHEM PANEL Potassium 3.8 3.5 - 5.1 06/19 The Lvl [facility] CHEM PANEL BUN 8 7 - 22 06/19 The [facility] CHEM PANEL Glucose Lvl 124 70 - 99 06/19 The [facility] HEMATOLOGY WBC 12.6 3.7 - 10.4 06/19 The [facility] HEMATOLOGY Hgb 12.2 12.0 - 06/19 The 16.0 [facility] HEMATOLOGY RBC 4.31 4.20 - 06/19 The 5.40 /2017 [facility] HEMATOLOGY Hct 37.1 36.0 - 06/19 The 48.0 [facility] HEMATOLOGY MCH 28.4 27.0 - 06/19 MH The 31.0 [facility] HEMATOLOGY MCV 86.0 80.0 - 06/19 The 98.0 [facility] HEMATOLOGY Platelet 268 133 - 450 06/19 The [facility] HEMATOLOGY MCHC 33.0 32.0 - 06/19 The 36.0 [facility] HEMATOLOGY RDW 14.4 11.5 - 06/19 The 14.5 [facility] HEMATOLOGY MPV 7.9 7.4 - 10.4 06/19 The [facility] CHEM PANEL Lipase Lvl 106 73 - 393 06/18 The [facility] CHEM PANEL Bili Unable to 0.0 - 1.0 06/18 The Indirect Calculate [facility] CHEM PANEL Bili Direct <0.1 0.0 - 0.3 06/18 The [facility] CHEM PANEL Bili Total 0.2 0.2 - 1.3 06/18 The [facility] CHEM PANEL Alk Phos 83 39 - 136 06/18 The [facility] CHEM PANEL Albumin Lvl 3.5 3.5 - 5.0 06/18 The [facility] CHEM PANEL ALT 24 0 - 65 06/18 The [facility] CHEM PANEL Globulin 3.7 2.7 - 4.2 06/18 The [facility] CHEM PANEL AST 15 0 - 37 06/18 The [facility] CHEM PANEL A/G Ratio 0.9 0.7 - 1.6 06/18 The [facility] CHEM PANEL Total 7.2 6.4 - 8.4 06/18 The Protein [facility] ELECTROLYT AGAP 12.8 10.0 - 06/18 MH The ES 20.0 [facility] ELECTROLYT eGFR 128 06/18 Result MH The ES /2017 Comment: [place] eGFR is calculated using the CKD-EPI formula. In most young, healthy individuals the eGFR will be >90 mL/min/1.73m2 . The eGFR declines with age. An eGFR of 60-89 may be normal in some populations, particularly the elderly, for whom the CKD-EPI formula has not been extensively validated. Use of the eGFR is not recommended in the following populations:< br/>
Nelli viduals with unstable creatinine concentration s, including patients and those with serious co-morbid conditions.<b r/>
Patie nts with extremes in muscle mass or diet.

The data above are obtained from the National Kidney Disease Education Program (NKDEP) which additionally recommends that when the eGFR is used in patients with extremes of body mass index for purposes of drug dosing, the eGFR should be multiplied by the estimated BMI. ELECTROLYT Calcium Lvl 9.0 8.5 - 10.5 06/18 The [facility] ELECTROLYT CO2 21 24 - 32 06/18 The [facility] ELECTROLYT Sodium Lvl 139 135 - 145 06/18 MH The [facility] ELECTROLYT Potassium 3.8 3.5 - 5.1 06/18 The ES Lvl /2017 [facility] ELECTROLYT Chloride Lvl 109 95 - 109 06/18 The [facility] ELECTROLYT Creatinine 0.65 0.50 - 06/18 MH The ES Lvl 1.40 [facility] ELECTROLYT BUN 11 7 - 22 06/18 The [facility] ELECTROLYT Glucose Lvl 99 70 - 99 06/18 The [facility] ENDOCRINOL S Preg Negative Negative 06/18 The OGY *NA* [facility] (06/18/18 9:23 AM) HEMATOLOGY Basophils # 0.1 0.0 - 0.2 06/18 [facility] HEMATOLOGY Eosinophils 0.2 0.0 - 0.5 06/18 The # [facility] HEMATOLOGY Monocytes # 0.8 0.0 - 0.8 06/18 The [facility] HEMATOLOGY Basophils 0.6 0.0 - 1.0 06/18 The [facility] HEMATOLOGY Lymphocytes 3.0 1.0 - 5.5 06/18 The # [facility] HEMATOLOGY Neutrophils 6.3 1.5 - 8.1 06/18 The [facility] HEMATOLOGY Monocytes 7.4 2.0 - 12.0 06/18 The [facility] HEMATOLOGY Eosinophils 2.2 0.0 - 4.0 06/18 The [facility] HEMATOLOGY Segs 60.8 45.0 - 06/18 The 75.0 /2017 [facility] HEMATOLOGY Lymphocytes 29.0 20.0 - 06/18 MH The 40.0 /2017 [facility] HEMATOLOGY Hgb 13.8 12.0 - 06/18 The 16.0 /2017 [facility] HEMATOLOGY RBC 4.84 4.20 - 06/18 MH The 5.40 /2017 [facility] HEMATOLOGY WBC 10.4 3.7 - 10.4 06/18 The /2017 [facility] HEMATOLOGY Hct 41.8 36.0 - 06/18 The 48.0 [facility] HEMATOLOGY MPV 8.1 7.4 - 10.4 06/18 The /2017 [facility] HEMATOLOGY Platelet 277 133 - 450 06/18 The [facility] HEMATOLOGY RDW 14.1 11.5 - 06/18 The 14.5 [facility] HEMATOLOGY MCHC 33.1 32.0 - 06/18 The 36.0 [facility] HEMATOLOGY MCH 28.5 27.0 - 06/18 The 31.0 [facility] HEMATOLOGY MCV 86.3 80.0 - 06/18 The 98.0 [facility] URINE AND UA <=1.0 0.1 - 1.0 06/18 The STOOL Urobilinogen mg/dL /2017 [facility] URINE AND UA WBC <1 0 - 5 06/18 The STOOL /2017 [facility] URINE AND UA Sq Epi Few /LPF Few /LPF 06/18 The STOOL /2017 [facility] URINE AND UA Leuk Est Negative Negative 06/18 The STOOL (06/18/18 9:23 AM) /2017 [facility] URINE AND UA Blood Negative Negative 06/18 The STOOL (06/18/18 9:23 AM) /2017 [facility] URINE AND UA Nitrite Negative Negative 06/18 The STOOL (06/18/18 9:23 AM) /2017 [facility] URINE AND UA Ketones Negative Negative 06/18 The STOOL mg/dL mg/dL [facility] URINE AND UA Bili Negative Negative 06/18 The STOOL *NA* /2017 [facility] (06/18/18 9:23 AM) URINE AND UA Color Light Yellow Yellow 06/18 The STOOL *NA* /2017 [facility] (06/18/18 9:23 AM) URINE AND UA Turbidity Clear Clear 06/18 The STOOL (06/18/18 9:23 AM) /2017 [facility] URINE AND UA RBC 1 0 - 2 06/18 MH The STOOL /2017 [facility] URINE AND UA Protein Negative Negative 06/18 MH The STOOL mg/dL mg/dL /2017 [facility] URINE AND UA Glucose Negative Negative 06/18 The STOOL mg/dL mg/dL /2017 [facility] URINE AND UA Spec Grav 1.007 <=1.030 06/18 The STOOL /2017 [facility] URINE AND UA pH 5.5 5.0 - 8.0 06/18 MH The STOOL /2017 [facility] CHEMISTRY U Preg Negative Negative 08/05 Normal MH The (08/05/2013 09:35:00) [facility] No Data Provided for This Section Diagnostic Reports Report Value Date Source ED Abdomen/Pelvis IV CT ABDOMEN AND PELVIS WITH CONTRAST [facility] [facility] 07/07/2018. 07/07/[address] [place] [address] CLINICAL INDICATION: Acute r ight upper quadrant pain. 3 weeks status post cholecystectomy. COMPARISON: None. TECHNIQUE: A CT of the abdom en and pelvis was performed using helical images from the thoracic outlet through the pubic symphysis after the intravenous administration of 100cc Omnipaque 300. The study w as ordered without bowel con trast. Sagittal and coronal reconstructions were performed. CT imaging performed at this location utilizes radiation dose optimization techniques which include one or more of the following: -Automated exposure control -Adjustment of the mA and/or kV according to pat ient size -Use of iterative reconstruction technique CT Radiation Dose DLP 806 mGy-cm FINDINGS: SOLID ORGANS: The liver demo nstrates evidence of fatty infiltration. No CT abnormalities of the spleen, pancreas, adrenal glands or kidneys are identified. There is no CT evidence of acute renal collect ing system obstruction or calcified renal collec ting system stone. BILIARY: The patient is stat us post cholecystectomy. No significant postoperative fluid collections are identified in the right upper quadrant. No significant biliary ductal dilatation is noted. BOWEL: Bowel assessment is l imited by the absence of bowel contrast. No small bowel dilatation is present to suggest acute obstruction. The appendix is identified and is not acutely inflamed. There is n o evidence of diverticular disease or inflammato ry colonic wall thickening. PERITONEUM: No free intraper itoneal air or significant free intraperitoneal fluid. RETROPERITONEUM: The abdomin al aorta is normal in caliber. No retroperitoneal mass or adenopathy. PELVIS: No abnormalities of the ovaries or adnexa are noted. The urinary bladder is unremarkable. LOWER CHEST: The lung bases appear clear of acut e disease. ADDITIONAL COMMENTS: No post operative fluid collections are identified in the anterior abdominal wall. IMPRESSION: 1. No acute CT abnormalities of the abdomen or p genia are detected. [id number] Abdomen RUQ US Clinical Indication: - RUQ pain; 06/18/2018 [facility] Comparison: None TECHNIQUE: Grayscale and limited color sonographic evaluation of the right upper quadrant of the abdomen and gallbladder region was performed with standard technique. FINDINGS: LIVER: The visualized liver shows n ormal contour, size, and morphology with normal parenchymal echo texture. BILE DUCTS: The intrahepatic and extrahe patic bile ducts are not dilated with the common bile duct measuring 3.1 mm. The distal common bile duct is not well seen. GALLBLADDER: There is large stone visuali zed within the gallbladder. There is no gallbladder wall thickening or pericholecystic fluid. PANCREAS: The visualized pancreas appears unremarkable. KIDNEY: The right kidney measures 12.2 x 5.3 x 5.4 cm. There is normal renal contou r and morphology, with normal parenchymal echotexture. There is no hydronephrosis. AORTA AND INFERIOR VENA CAVA: Visualized portions appear unremarkable. ASCITES: There is no right upper quadrant abdominal ascit es. IMPRESSION: 1. Cholelithiasis without evidence of acute chol ecystitis. SL: [id number] Abdomen 2 views Name: VENANCIO GONZALEZ 08/05/2013 Shekhar potter : 1995 SEX: F Ordering Physician: Daphnie Driscoll Abdomen 2 views : Aug 05, 2013 10:08:00 AM. CLINICAL INDICATION: Abdominal fullness Comparison Examination: None FINDINGS: Supine and upright views of the abdomen demonstrates a non-obstructive bowel gas pattern. There is no pneumatosis or mass effect. No significant abnormal calcifications are seen. There are no clinically significant osseous abnormalities. IMPRESSION: Unremarkable supine view of the abdomen. SL: 24 Consultation Notes No Data Provided for This Section Discharge Summaries No Data Provided for This Section History and Physicals No Data Provided for This Section Vital Signs Vital Sign Value Date Comments Source Heart Rate 73 09/04/2019 [facility] Respitory Rate 18 09/04/2019 [facility] Systolic (mm Hg) 130 09/04/2019 [facility] Diastolic (mm Hg) 75 09/04/2019 [facility] Systolic (mm Hg) 134 09/04/2019 [facility] Diastolic (mm Hg) 72 09/04/2019 [facility] Heart Rate 89 09/04/2019 [facility] Respitory Rate 18 09/04/2019 [facility] Height 152.4 cm 09/04/2019 [facility] BMI Calculated 46 09/04/2019 [facility] Weight 106.847 09/04/2019 [facility] Respitory Rate 14 07/07/2018 [facility] Systolic (mm Hg) 104 07/07/2018 [facility] Diastolic (mm Hg) 63 07/07/2018 [facility] Systolic (mm Hg) 107 07/07/2018 [facility] Diastolic (mm Hg) 55 07/07/2018 [facility] Respitory Rate 15 07/07/2018 [facility] Respitory Rate 16 07/07/2018 [facility] Systolic (mm Hg) 107 07/07/2018 [facility] Diastolic (mm Hg) 58 07/07/2018 [facility] Heart Rate 82 07/07/2018 [facility] Weight 105.085 07/07/2018 [facility] BMI Calculated 45.25 07/07/2018 [facility] Height 152.4 cm 07/07/2018 [facility] Heart Rate 90 07/07/2018 [facility] Temperature Oral (F) 97.6 F 06/20/2018 [place] Heart Rate 64 06/20/2018 [facility] Respitory Rate 18 06/20/2018 [facility] Systolic (mm Hg) 95 06/20/2018 [facility] Diastolic (mm Hg) 64 06/20/2018 [facility] Respitory Rate 18 06/20/2018 [facility] Heart Rate 73 06/20/2018 [facility] Systolic (mm Hg) 108 06/20/2018 [facility] Diastolic (mm Hg) 71 06/20/2018 [facility] Temperature Oral (F) 98.1 F 06/20/2018 [place] Respitory Rate 18 06/20/2018 [facility] Systolic (mm Hg) 104 06/20/2018 [facility] Diastolic (mm Hg) 66 06/20/2018 [facility] Heart Rate 85 06/20/2018 [facility] Temperature Oral (F) 98.3 F 06/20/2018 [facility] Height 152.4 cm 06/18/2018 [facility] BMI Calculated 45.7 06/18/2018 [facility] Weight 106.136 06/18/2018 [facility] BMI Calculated 46.6 06/18/2018 [facility] Weight 108.227 06/18/2018 [facility] Height 152.4 cm 06/18/2018 [facility] Weight 108.227 06/18/2018 [facility] Respitory Rate 7 08/05/2013 [facility] Systolic (mm Hg) 99 08/05/2013 [facility] Diastolic (mm Hg) 55 08/05/2013 [facility] Heart Rate 63 08/05/2013 [facility] Weight 81.818 08/05/2013 [facility] Height 152.4 cm 08/05/2013 [facility] Respitory Rate 18 08/05/2013 [facility] Heart Rate 67 08/05/2013 [facility] Diastolic (mm Hg) 76 08/05/2013 [facility] Systolic (mm Hg) 122 08/05/2013 [facility] Encounters Location Location Encounter Encounter Reason Attending ADM DC Stat us Source Details Type Number For Provider Date Date Visit [facility] [id number] PRASHANT EDOZNO 08/05 08/05 Active [facility] Observation [id number] Jackie 06/18 06/20 [facility] Emergency [id number] Miguel 07/07 07/07 [facility] Emergency [id number] Julee 09/04 09/04 [facility]2019 [facility] Procedures Procedure Code Date Perfomer Comments Source Cholecystectomy [id number] [facility] Dissection [id number] The tonsillectomy [place] Assessment and Plan Assessment and Plan Date Source Extracted from:Title: Clinical Document 06/20/2018 [facility] Author: Jackie Wayne MD Date: 06/20/18 doing well, eating soft inc c/d/i Ap-ok to d/c home and f/u 1 week Extracted from:Title: General Admission H&P * Author: Jackie Wayne MD Date: 06/18/18 Impression and Plan Acute cholecystitis with cholelithiasis; lap poss open john; all risks, benefits, complications, alternatives d/w pt, aunt and grandfather who agrees Plan of Care No Data Provided for This Section Social History Social History Date Source Social History TypeResponse 06/18/2018 [facility] Alcohol Current, Type Beer, Liquor. Frequency: Daily. Previous treatment: None. Alcohol use interferes with work or home: No. Drinks more than intended: No. Others hurt by drinking: No. Ready to change: No. Household alcohol concerns: No. Substance Abuse Use: None. Smoking Status Current every day smoker; Type: Cigarett es; Ready to change: No; Concerns about tobacco use in household: No; Exposure to Tobacco Smoke None; Cigarette Smoking Last 365 Days Yes; Reg Smoking Cessation Counseling Yes; Tobacco use per day: 20; entered on: 09/04/19 Family History No Data Provided for This Section Advance Directives No Data Provided for This Section Functional Status No Data Provided for This Section
--- OUTSIDE RECORDS SUMMARY | 2020-01-05 15:06 | XMS REPORT | Continuity of Care Document ---
:1995 Author Organization [facility] t Address [address] [place] [address] Care Team Providers Name Role Phone Sarah Glynn Attending Clinician Nimesh Jensen Jr Attending Clinician Rosana Attending Clinician Rosana Admitting Clinician Problems Condition Condition Condition Status Onset Resolution Last Treating Co mments Source Name Details Category Date Date Treatment Clinician Date THROAT Diagnosis Active 2019-09-07 Mem oria ISSUES - 13:33:00 l THROAT 00:00: Bucky ISSUES 00 Active 09/03/2019 [facility] ABD PAIN Diagnosis Active 2017-072018-07-07 M emoria 2- 05:31:00 l ABD PAIN 00:00: Michael n 00 Active 07/07/2018 [facility] SYMPTOMATI Diagnosis Active 2017-072018-06-20 Memoria C 08-18 16:07:00 l CHOLEITHIA 00:00: Michael n SIS SYMPTOMATI 00 C CHOLEITHIA SIS Active 06/18/2018 [facility] GALLBLADDE Diagnosis Active 2017-072018-06-18 Memoria R ISSUES 08-18 11:14:00 l 00:00: Morgan GALLBLADDE 00 R ISSUES Active 06/18/2018 [facility] Nausea Problem 2019-01-24 Memor ia with 11:13:49 l vomiting, Nausea Alka nn unspecifie with d vomiting, unspecifie d 01/24/2019 [facility] Acquired Problem 2019-01-24 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:13:49 l other Acquired Michael n specified absence of parts of other digestive specified tract parts of digestive tract 01/24/2019 [place] Nicotine Problem 2019-01-24 Mem oria dependence 11:13:49 l , Nicotine Michael n cigarettes dependence , , uncomplica cigarettes kecia , uncomplica kecia 01/24/2019 [place] Obesity, Problem 2019-01-07 Mem oria unspecifie 12:15:48 l d Obesity, Michael n unspecifie d 01/07/2019 [place] Bipolar Problem 2019-01-07 Usama brian disorder, 12:15:48 l unspecifie Bipolar Her caballero d disorder, unspecifie d 01/07/2019 [place] Body mass Problem 2019-01-07 Me moria index 12:15:48 l (BMI) Body Morgan 45.0-49.9, mass index adult (BMI) 45.0-49.9, adult 01/07/2019 [place] Bipolar Problem Active 2013-08-07 Usama brian (qualifier 22:53:36 l value) Bipolar Bucky (qualifier value) Active Problem 08/07/2013 [place] CALCULUS Diagnosis Active 2018-06-20 M emoria OF 16:07:00 l GALLBLADDE CALCULUS He rmann R W/O OF CHOLECYSTI GALLBLADDE TI R W/O CHOLECYSTI TI Active [facility] Acute Problem 2019-09-06 2019-09-06 M emoria pharyngiti 207 22:02:08 22:02:08 l s, Acute 18:00: Bucky unspecifie pharyngiti 00 d s, unspecifie d 09/04/2019 09/06/2019 [place] Right Problem 2017-072019-01-24 2019-01-24 M emoria upper 2-18 11:13:49 11:13:49 l quadrant Right 04:40: Bucky pain upper 22 quadrant pain 07/15/2018 01/24/2019 [place] Unspecifie Problem 2017-072019-01-24 2019-01-24 Memoria d 2-10 11:13:49 11:13:49 l abdominal 06:00: Bucky pain Unspecifie 00 d abdominal pain 07/07/2018 01/24/2019 [place] Calculus Problem 2017-072019-01-07 2019-01-07 Memoria of 08-25 12:15:48 12:15:48 l gallbladde Calculus 04:19: He rmann r with of 08 acute gallbladde cholecysti r with tis acute without cholecysti obstructio tis n without obstructio n 06/25/2018 01/07/2019 [facility] Allergies, Adverse Reactions, Alerts Allergy Allergy Status Severity Reaction(s) Onset Inactive Treating Comm ents Source Name Type Date Date Clinician morphine morphine Active Memori a l [place] Active Memoria l Morgan LaMICtal LaMICtal Active Memori a l Morgan Social History Social Habit Start Date Stop Date Quantity Comments Source Social History 2018-06-18 2018-06-18 [facility]02 Medications Ordered Filled Start Stop Current Ordering Indication Dosage Frequency Signature Comments Components Source Medication Medication Date Date Medication? Clinician (SIG) Name Name Magic Yes 5 mL, PO, Memoria Mouthwash 2-07 QID, # 100 l (Benadryl/L 06:47: mL, 0 Alka nn idocaine/Ma 00 Refill(s) alox/) 1:1:1 Ibuprofen Yes 800 mg = 1 Me moria 800 MG Oral 2-07 tab, PO, l Tablet 06:46: Q8H, PRN Bucky [Motrin] 00 Pain, Take with food, # 30 tab, 0 Refill(s) Dexamethaso No = 14 kg to Memoria ne 2-07 < 17 kg, l 06:45: Asthma, Bucky 00 Start date: 09/04/19 0:45:00 INTERNAL REVIEW AND AUDIT COMPLIANCE, Stop date: 09/04/19 0:45:00 INTERNAL REVIEW AND AUDIT COMPLIANCE, Pediatric Dosing Tylenol No Notes: Max Usama brian 2-07 acetaminop l 03:42: hen 4000 Morgan 00 mg/day (4 gm/day). (Same as: Tylenol Extra Strength) Magic No Notes: Memoria Mouthwash 2-07 Magic l (Benadryl/L 03:41: mouth wash Morgan idocaine/Ma 00 contains:B alox/) enadryl/Li 1:1:1 docaine/Ma alox/) 1:1:1; total volume 5 ml Morphine 2017-07 No 4 mg, Memoria 2-10 Route: l 10:34: IVP, ONCE, Bucky 00 Dosing Weight 105.085, kg, Priority: STAT, Start date: 07/07/18 4:34:00 INTERNAL REVIEW AND AUDIT COMPLIANCE, Stop date: 07/07/18 4:34:00 INTERNAL REVIEW AND AUDIT COMPLIANCE Ketorolac 2017-07 No 15 mg, Memori a 2-10 Route: l 10:33: IVP, Drug Bucky 00 form: INJ, ONCE, Dosing Weight 105.085, kg, Priority: STAT, Start date: 07/07/18 4:33:00 INTERNAL REVIEW AND AUDIT COMPLIANCE, Stop date: 07/07/18 4:33:00 INTERNAL REVIEW AND AUDIT COMPLIANCE remove 2017-07 No Notes: Memoria patch 08-20 WASTE: F/P l 21:00: - P Waste Bucky 00 Black; E - P Waste Black Habitrol 2017-07 No Notes: Memoria 08-19 (Same as: l 22:00: Habitrol) Morgan 00 "Remove old patch before applicatio n of new patch" WASTE: F/P - P Waste Black; E - P Waste Black Acetaminoph 2017-07 No See Memori a en 300 MG / 08-19 Instructio l Codeine 19:33: ns, PRN Ubcky Phosphate 00 for pain, 30 MG Oral 1-2 tab PO Tablet Q4-6H not [Tylenol to exceed with 4000 mg Codeine #3] acetaminop hen per day, # 30 tab, 0 Refill(s) Docusate 2017-07 No Notes: Memoria Sodium 100 08-19 (Same as: l MG Oral 15:00: Colace) Bucky Capsule (Do Not [Colace] Crush) chlorhexidi 2017-07 No Notes: Usama brian ne 08-19 (Same As: l gluconate 15:00: Hibiclens) He rmann 40 MG/ML 00 Medicated Liquid Soap Nicotine 2017-07 No Notes: Memoria 08-19 (Same as: l 07:00: Habitrol) Bucky 00 "Remove old patch before applicatio n of new patch" WASTE: F/P - P Waste Black; E - P Waste Black Acetaminoph 2017-07 No Notes: Do M emoria en 300 MG / 08-19 not exceed l Codeine 02:19: 4gm/day of Herm sary Phosphate 00 acetaminop 30 MG Oral hen. Tablet (Same as: [Tylenol Tylenol with with Codeine #3] Codeine # 3) hydromorpho 2017-07 No Route: IV, Memoria ne (ANES) 08-19 Drug form: l 01:26: INJ, ONCE, Stop date: 06/18/18 19:26:00 INTERNAL REVIEW AND AUDIT COMPLIANCE ketOROLAC 2017-07 No IV, ONCE Usama brian (ANES) 08-19 l 01:26: Morgan 00 neostigmine 2017-07 No Route: IV, Memoria (ANES) 08-19 Drug form: l 01:26: INJ, ONCE, Stop date: 06/18/18 19:26:00 INTERNAL REVIEW AND AUDIT COMPLIANCE glycopyrrol 2017-07 No Route: IV, Memoria ate (ANES) 08-19 Drug form: l 01:26: INJ, ONCE, Stop date: 06/18/18 19:26:00 INTERNAL REVIEW AND AUDIT COMPLIANCE dexamethaso 2017-07 No Route: IV, Memoria ne (ANES) 08-19 Drug form: l 01:20: INJ, ONCE, Stop date: 06/18/18 19:20:00 INTERNAL REVIEW AND AUDIT COMPLIANCE ondansetron 2017-07 No Route: IV, Memoria (ANES) 08-19 Drug form: l 01:05: INJ, ONCE, Stop date: 06/18/18 19:05:00 INTERNAL REVIEW AND AUDIT COMPLIANCE fentaNYL 2017-07 No Route: IV, Mem oria (ANES) 08-19 Drug form: l 01:05: INJ, ONCE, Stop date: 06/18/18 19:05:00 INTERNAL REVIEW AND AUDIT COMPLIANCE lidocaine 2017-07 No Route: IV, Me moria (ANES) 08-19 Drug form: l 01:00: INJ, ONCE, Stop date: 06/18/18 19:00:00 INTERNAL REVIEW AND AUDIT COMPLIANCE famotidine 2017-07 No Route: IV, M emoria (ANES) 08-19 Drug form: l 01:00: INJ, ONCE, Stop date: 06/18/18 19:00:00 INTERNAL REVIEW AND AUDIT COMPLIANCE midazolam 2017-07 No Route: IV, Me moria (ANES) 08-19 Drug form: l 01:00: SOLN, ONCE, Stop date: 06/18/18 19:00:00 INTERNAL REVIEW AND AUDIT COMPLIANCE rocuronium 2017-07 No Route: IV, M emoria (ANES) 08-19 Drug form: l 01:00: INJ, ONCE, Bucky 00 Stop date: 06/18/18 19:00:00 INTERNAL REVIEW AND AUDIT COMPLIANCE propofol 2017-07 No Route: IV, Mem oria (ANES) 08-19 Drug form: l 01:00: INJ, ONCE, Bucky Stop date: 06/18/18 19:00:00 INTERNAL REVIEW AND AUDIT COMPLIANCE fentaNYL 2017-07 No Route: IV, Mem oria (ANES) 08-19 Drug form: l 01:00: INJ, ONCE, Bucky Stop date: 06/18/18 19:00:00 INTERNAL REVIEW AND AUDIT COMPLIANCE Zosyn 2017-07 No Notes: Memoria 08-19 (Same as: l 01:00: Zosyn) Dosing based on Piperacill in component MEDICATION WASTE Product Size: 3375 mg Product Wasted: ___ mg piperacilli 2017-07 No Route: IV, Memoria n-tazobacta 08-19 Drug form: l m (ANES) 00:55: INJ, ONCE, Her caballero Stop date: 06/18/18 18:55:00 INTERNAL REVIEW AND AUDIT COMPLIANCE Ondansetron 2017-07 No Notes: Usama brian 08-19 (Same as: l 00:32: Zofran) MEDICATION WASTE Product Size: 4 mg Product Wasted: ___ mg Fentanyl 2017-07 No Notes: Memoria 08-19 (Same as: l 00:32: Sublimaze) Preservat tin free. Morphine 2017-07 No Notes: Memoria 08-19 (Same l 00:32: as:MORPhin e Sulfate) Naloxone 2017-07 No Notes: Memoria 08-19 Same as l 00:32: Narcan Bucky 00 Flumazenil 2017-07 No Notes: Memor ia 08-19 (Same as: l 00:32: Romazicon) Lactated 2017-07 No Route: IV, Mem oria Ringers 08-19 Total l Injection 00:11: Volume: Alka nn IV (ANES) 00 1,000, 1000 mL Start date: 06/18/18 18:11:00 INTERNAL REVIEW AND AUDIT COMPLIANCE, Stop date: 06/18/18 19:11:00 INTERNAL REVIEW AND AUDIT COMPLIANCE Lactated 2017-07 No 1,000 mL, Usama brian Ringers IV 08-18 Rate: 40 l 1,000 mL 23:02: ml/hr, Infuse over: 25 hr, Route: IV, Dosing Weight 106.136 kg, Total Volume: 1,000, Start date: 06/18/18 17:02:00 INTERNAL REVIEW AND AUDIT COMPLIANCE, Duration: 30 day, Stop date: 07/18/18 17:01:00 INTERNAL REVIEW AND AUDIT COMPLIANCE, 2.17, m2 Fentanyl 2017-07 No Notes: Memoria 08-18 (Same as: l 19:52: Sublimaze) Preservat tin free. Naloxone 2017-07 No Notes: Memoria 08-18 Same as l 19:52: Narcan Ephedrine 2017-07 No Notes: Memori a - final l 19:52: concentrat ion 5 mg/mL Diphenhydra 2017-07 No Notes: Usama brian mine - (Same as: l 19:52: Benadryl) Meperidine 2017-07 No Notes: Memor ia - (Same as: l 19:52: Demerol) "Use Precaution in Elderly, Seizure disorders, and Renal impairment " Morphine 2017-07 No Notes: Memoria 08-18 (Same l 19:52: as:MORPhin e Sulfate) Flumazenil 2017-07 No Notes: Memor ia - (Same as: l 19:52: Romazicon) Oxycodone 2017-07 No Notes: Memori a - (Same as: l 19:52: Roxicodone ) Promethazin 2017-07 No 6.25 mg, Me moria e -21 25 mL, l 19:52: Route: Morgan 00 IVPB, Drug form: SOLN, ONCE, Dosing Weight 108.227, kg, PRN Nausea & Vomiting, Start date: 06/18/18 13:52:00 INTERNAL REVIEW AND AUDIT COMPLIANCE Dexamethaso 2017-07 No Notes: Usama brian ne - Concentrat l 19:52: ion: Bucky 00 4mg/ml Ondansetron 2017-07 No Notes: Usama brian 1-21 (Same as: l 19:52: Zofran) Bucky 00 MEDICATION WASTE Product Size: 4 mg Product Wasted: ___ mg 72 HR 2017-07 No Notes: Memoria Scopolamine 08-18 Change l 0.0139 19:52: patch Bucky MG/HR 00 every 72 Transdermal hours Patch (Same as: Transderm- Scop) Lorazepam 2017-07 No Notes: Memori a 08-18 (Same as: l 19:52: Ativan) Morgan 00 Labetalol 2017-07 No Notes: Memori a 08-18 (Same as: l 19:52: Normodyne, Morgan 00 Trandate) Push over 2 minutes Give bolus over 2-3 minutes. Hydralazine 2017-07 No Notes: Usama brian 08-18 (Same as: l 19:52: Apresoline ) Push over 5 minutes ANES 2017-07 No Notes: Memoria Enalaprilat 08-18 (Same as: l 19:52: Vasotec-IV ) esmolol 2017-07 No Notes: Memoria 08-18 (Same as: l 19:52: Brevibloc) Morgan 00 Acetaminoph 2017-07 No Notes: Max Memoria en 08-18 acetaminop l 19:52: hen 4000 Bucky 00 mg/day (4 gm/day). (Same as: Tylenol Extra Strength) Metoprolol 2017-07 No Notes: Memor ia 08-18 (Same as: l 19:52: Lopressor) Push over 2 minutes Zosyn 2017-07 No Notes: Memoria 08-18 (Same as: l 17:11: Zosyn) Dosing based on Piperacill in component MEDICATION WASTE Product Size: 4500 mg Product Wasted: ___ mg Dilaudid 2017-07 No Notes: Memoria 08-18 Same as: l 17:11: Dilaudid Ketorolac 2017-07 No 15 mg, Memori a 08-18 Route: l 16:34: IVP, Drug form: INJ, ONCE, Dosing Weight 108.227, kg, Priority: STAT, Start date: 06/18/18 10:34:00 INTERNAL REVIEW AND AUDIT COMPLIANCE, Stop date: 06/18/18 10:34:00 INTERNAL REVIEW AND AUDIT COMPLIANCE Dilaudid 2017-07 No Notes: Memoria 08-18 Same as l 16:18: Dilaudid Bucky 00 Hydromorpho 2017-07 No Notes: Usama brian ne 08-18 Same as: l 15:17: Dilaudid Bucky 00 Sodium 2017-07 No 1,000 mL, Memori a Chloride 08-18 1000 l 0.9% 15:17: ml/hr, Bucky (Bolus) IV 00 Infuse Over: 1 hr, Route: IV, 1,000, Drug form: INJ, ONCE, Priority: STAT, Dosing Weight 108.227 kg, Start date: 06/18/18 9:17:00 INTERNAL REVIEW AND AUDIT COMPLIANCE, Stop date: 06/18/18 9:17:00 INTERNAL REVIEW AND AUDIT COMPLIANCE MiraLax Yes Edozie 17 gm, PO, Me moria oral powder 08-05 Brian Daily, # l for 17:17: Akunyili 527 gm, 0 Herm sary reconstitut 00 Refill(s) ion magnesium No Edozie 300 mL, Mem oria citrate 08-05 Brian Route: PO, l 15:00: Akunyili Drug Form: Her caballero 00 LIQ, Dosing Weight 81.818, kg, ONCE, Start date: 08/05/13 9:00:00, Stop date: 08/05/13 9:00:00([facility] as: Citrate of Magnesia) lithium 300 Yes 0 Memori a mg oral 1-08 Refill(s) l tablet 14:43: Morgan 00 trazodone Yes 0 Memoria 100 mg oral 1-08 Refill(s) l tablet 14:42: Morgan 00 Vital Signs Vital Name Observation Time Observation Value Comments Source [facility] 2019-09[facility]04 06:38[facility] 2019-09-04 06:38:00 Memori al Bucky Systolic (mm Hg) 2019-09-04 06:38:00 Usama rial Bucky Diastolic (mm Hg) 2019-09-04 06:38:00 Mem orial Bucky Systolic (mm Hg) 2019-09-04 03:36:00 Usama rial Bucky Diastolic (mm Hg) 2019-09-04 03:36:00 Mem orial Morgan Heart Rate 2019-09-04 03:36:00 Memorial Bucky Respitory Rate 2019-09-04 03:36:00 Memori al Bucky Height 2019-09-04 03:36:00 152.4 cm Memorial Bucky BMI Calculated 2019-09-04 03:36:00 Memori al Bucky Weight 2019-09-04 03:36:00 Memorial Bucky Respitory Rate 2018-07-07 13:20:00 Memori al Morgan Systolic (mm Hg) 2018-07-07 13:20:00 Usama rial Morgan Diastolic (mm Hg) 2018-07-07 13:20:00 Mem orial Morgan Systolic (mm Hg) 2018-07-07 12:15:00 Usama rial Morgan Diastolic (mm Hg) 2018-07-07 12:15:00 Mem orial Bucky Respitory Rate 2018-07-07 12:15:00 Memori al Bucky Respitory Rate 2018-07-07 11:30:00 Memori al Bucky Systolic (mm Hg) 2018-07-07 11:30:00 Usama rial Bucky Diastolic (mm Hg) 2018-07-07 11:30:00 Mem orial Morgan Heart Rate 2018-07-07 10:56:00 Memorial Bucky Weight 2018-07-07 10:09:00 Memorial Bucky BMI Calculated 2018-07-07 10:09:00 Memori al Bucky Height 2018-07-07 10:09:00 152.4 cm Memorial Morgan Heart Rate 2018-07-07 10:09:00 [facility] Morgan Temperature Oral (F) 2018-06-20 13:00:00 97.6 F [facility] Morgan Heart Rate 2018-06-20 13:00:00 [facility] Morgan Respitory Rate 2018-06-20 13:00:00 Memori al Morgan Systolic (mm Hg) 2018-06-20 13:00:00 Usama rial Morgan Diastolic (mm Hg) 2018-06-20 13:00:00 Mem orial Morgan Respitory Rate 2018-06-20 09:52:00 Memori al Morgan Heart Rate 2018-06-20 09:52:00 [facility] Morgan Systolic (mm Hg) 2018-06-20 09:52:00 Usama rial Morgan Diastolic (mm Hg) 2018-06-20 09:52:00 Mem orial Morgan Temperature Oral (F) 2018-06-20 09:52:00 98.1 F Memorial Bucky Respitory Rate 2018-06-20 06:37:00 Memori al Bucky Systolic (mm Hg) 2018-06-20 06:37:00 Usama rial Bucky Diastolic (mm Hg) 2018-06-20 06:37:00 Mem orial Bucky Heart Rate 2018-06-20 06:37:00 [facility] Morgan Temperature Oral (F) 2018-06-20 06:37:00 98.3 F [facility] Morgan Height 2018-06-18 21:16:00 152.4 cm [facility] Morgan BMI Calculated 2018-06-18 21:16:00 Memori al Morgan Weight 2018-06-18 21:16:00 [facility] Morgan BMI Calculated 2018-06-18 20:01:00 Memori al Bucky Weight 2018-06-18 20:01:00 [facility] Morgan Height 2018-06-18 20:01:00 152.4 cm Memorial Bucky Weight 2018-06-18 15:13:00 [facility] Bucky Respitory Rate 2013-08-05 17:40:00 Memori al Bucky Systolic (mm Hg) 2013-08-05 17:40:00 Usama rial Morgan Diastolic (mm Hg) 2013-08-05 17:40:00 Mem orial Bucky Heart Rate 2013-08-05 17:40:00 [facility] Bucky Weight 2013-08-05 14:18:00 Memorial Bucky Height 2013-08-05 14:18:00 152.4 cm [facility] Bucky Respitory Rate 2013-08-05 14:18:00 Memori al Bucky Heart Rate 2013-08-05 14:18:00 [facility] Morgan Diastolic (mm Hg) 2013-08-05 14:18:00 Mem orial Morgan Systolic (mm Hg) 2013-08-05 14:18:00 Usama rial Bucky Procedures Procedure Date / Time Performed Performing Clinician Sourc e Cholecystectomy Memorial Bucky Dissection tonsillectomy Memoria l Morgan Encounters Start End Encounter Admission Attending Care Care Encounter Source Date/Time Date/Time Type Type Clinicians Facility Department ID 2019-09-03 2019-09-04 Outpatient KENN Glynn [id number] 21:28:05 01:05:00 Julee Smith 03 2019-09-03 2019-09-03 Emergency E [facility] [id number] MHTW 21:28:00 21:28:00 2018-07-07 2018-07-07 Outpatient KENN Jensen [facility] [id number] 04:08:00 07:36:00 Miguel 02 Nimesh 2018-06-18 2018-06-20 Outpatient KENN Wayne [facility] [id number] 08:57:00 14:33:00 Jackie 01 2013-08-05 2013-08-05 Outpatient REYNALDOIE RICHARD [id number] Memoria 08:12:00 11:42:00 00 l Morgan [facility] Results Test Description Test Time Test Comments Results Result Sourc e Comments IMMUNOLOGY 2019-09-04 Negative Memorial 05:39:00 (09/03/19 11:39 Bucky PM) RAPID 2019-09-04 Negative Memorial 05:39:00 (09/03/19 11:39 Bucky PM) CHEM PANEL 2018-07-07 10:55:00 Test Item Value Reference Range Interpretation Comme nts A/G Ratio (test code = A/G Ratio) 1.1 1 0.7-1.6 [facility] [id number] 10:55:003.8[facility]ann[facility] PANEL 2018-07-07 10:55:0029[facility]annCHE[facility] [id number] 10:55:0018[facility] ACZCJ8966-19-21 10:55:003.6[facility] [id number] 10:55:000.2[facility] MYIRG8930-93-04 10:55:0091[facility] [id number] 10:55:00<0.1[facility] ADGNO6079-21-20 10:55:007.4 [facility] DPSSJ2070-01-99 10:55:73759Vjwjsmbz HermannELECTROLYTES 2018-07-07 10:55:0013.7[facility] NzhqxcjSUIFFOEVTCPC3475-13-36 10:55:03470 Memorial CpwxtfbGMUPCEUEICVQ6153-62-85 10:55:000.61[facility] HermannELECTROLYTES 2018-07-07 10:55:0011[facility] UsgjvphFQWBPTHOXVFL2525-47-41 10:55:0093[facility] GtjhsfeDQLWHOLAGKEV0090-13-60 10:55:0026[facility] DunzmrzQTQABAYIDEWU1016-95-30 10:55:02098Wsxweora OvgjacmLQVUSCEBUXMB9036-02-14 10:55:003.7[facility] Bucky DNBVYGQLYSTZ3238-96-19 10:55:68502Vkmrhejw EnafnovAUYKZDZDRCSE0894-18-89 10:55:008.9[facility] AgktbhsYFGNIVILKZQCZ7841-35-59 10:55:00Negative *NA*(07/07/18 4:55 AM)[facility] ClmzzhrLQPEWXWGVC2599-66-05 10:55:008.1[facility] JxxiyamEHZWETKKPE0163-65-15 10:55:39388Cewzqrmf AyvqsetREFMOEODSA4247-02-12 10:55:00 Test Item Value Reference Range Interpretation Comments MCH (test code = MCH) 28.6 pg 27.0-31.0 Memorial YqosmtrMUQNEGAQEI7712-03-39 10:55:0033.4[facility] HermannHEMATOLOGY 2018-07-07 10:55:0085.6[facility] OhlfdmiSNZYQQXCWD0533-63-82 10:55:0039.9[facility] YykxczgZGZIEIOVDO2155-21-64 10:55:0013.7[facility] VkvctwwHIKGBVLMFE2443-56-51 10:55:004.66[facility] YskidptMAXMXDBJKM2042-88-48 10:55:0013.3[facility] Bucky LQGUOJUOQE8193-25-14 10:55:0013.5[facility] QylphfvIGIRRBXPDS6363-61-78 10:55:00 0.2[facility] KmltpfkFFUTDFCMSX6025-53-33 10:55:0061.9[facility] HermannHEMATOLOGY 2018-07-07 10:55:008.4[facility] VfsgokbMAUHZJJTLV5248-92-04 10:55:000.3[facility] QksufeiTZRZQFTLHU6927-22-27 10:55:004.2[facility] RzmahoyYESMTQCOBP7188-78-17 10:55:000.7[facility] BislqryUXDSPEUOPN6371-71-35 10:55:0031.0[facility] Bucky LGXIDBPGPW5392-47-05 10:55:005.4[facility] RyawynyKFCTPFXTQQ9113-17-18 10:55:001.4 [facility] BEPVM2550-82-42 10:55:002[facility] HIEPA0154-20-00 10:55:00<1[facility] GEWYO1601-94-49 10:55:00 Test Item Value Reference Range Interpretation Comments UA Spec Grav (test code = UA Spec 1.014 1 Grav) [facility] [id number] 10:55:00Clear (07/07/18 4:55 AM) [facility] RELKE1506-57-92 10:55:00Yellow *NA*(07/07/18 4:55 AM) [facility] [id number] 10:55:00 Test Item Value Reference Range Interpretation Comments UA pH (test code = UA pH) 5.5 1 5.0-8.0 [facility] [id number] 10:55:00Negative (07/07/18 4:55 AM) [facility] QVTJD9348-07-36 10:55:00Negative (07/07/18 4:55 AM) [facility] UDCTD3956-21-29 10:55:00Negative (07/07/18 4:55 AM) [facility] VCAYZ3292-34-81 10:55:00Negative *NA*(07/07/18 4:55 AM)[facility] CojbsfoIRBGTCGSSH0356-86-43 09:40:008.0[facility] HermannHEMATOLOGY 2018-06-20 09:40:54665Qbpzyafe XwekwimHCHOJYRKDG0027-59-50 09:40:00 Test Item Value Reference Range Interpretation Comments MCH (test code = MCH) 29.2 pg 27.0-31.0 [facility] ZqhanmzRZMTBDMKRN0599-78-40 09:40:0086.7[facility] HermannHEMATOLOGY 2018-06-20 09:40:0011.6[facility] GsykzseETTVWQEZVA7259-38-49 09:40:0034.4[facility] XxxadxxYQGOGOKDZG5790-53-31 09:40:0010.3[facility] ZhfnwflDOSREYLCBS1424-04-49 09:40:003.97[facility] ZrjwntdMUQIEAHEEE0875-22-16 09:40:0014.3[facility] Morgan DJPLEUVMNP2315-54-34 09:40:0033.7[facility] HermannCHEM KUZHV8091-47-12 16:37:00 130[facility]annCHEM RXBZE2359-21-37 16:37:003.1[facility]annCHEM PANEL 2018-06-19 16:37:00 Test Item Value Reference Range Interpretation Comments A/G Ratio (test code = A/G Ratio) 1.0 1 0.7-1.6 [facility]CHE[facility] [id number] 16:37:0021[facility] HermannCHEM PANEL 2018-06-19 16:37:0011.8[facility] HermannCHEM [id number] 16:37:00 Test Item Value Reference Range Interpretation Comments B/C Ratio (test code = B/C Ratio) 13 1 6-25 [facility]annCHE[facility] KQTFW5439-02-64 16:37:0069[facility] HermannCHEM PANEL 2018-06-19 16:37:000.3[facility] HermannCHEM NIHMV5463-49-59 16:37:0025[facility] HermannCHEM HHRAE9887-79-15 16:37:008.4[facility]annCHEM SJOHR3336-08-43 16:37:0024[facility] HermannCHEM VIAXO7497-53-62 16:37:006.1[facility]annCHEM SCDRP7354-23-62 16:37:003.0[facility] HermannCHEM UFHGY9310-67-27 16:37:000.61 [facility]CHE[facility] TJMFW9991-79-74 16:37:92347Lkugzkon HermannCHEM PANEL 2018-06-19 16:37:09357Xtjsmjtk HermannCHEM DDXBE4909-89-33 16:37:003.8[facility]annCHEM NYZEP9096-00-77 16:37:008[facility]annCHEM EVQFW6148-39-76 16:37:93210Xejeyhwd LwardvbGGFUTKUMLY6896-41-37 16:37:0012.6[facility] QDMBIHKZAQ7217-07-37 16:37:0012.2[facility] TjacxbzYEGHYWGFYZ0478-90-31 16:37:00 4.31[facility] CfopcczGYCRJRVZKP8687-93-54 16:37:0037.1[facility]annHEMATOLOGY 2018-06-19 16:37:00 Test Item Value Reference Range Interpretation Comments MCH (test code = MCH) 28.4 pg 27.0-31.0 [facility] HbvqaqoXXECXRQRUL3326-92-71 16:37:0086.0[facility]annHEMATOLOGY 2018-06-19 16:37:94650Iapbrgkr ObvwqvpVYHPZUDSYQ9127-13-08 16:37:0033.0[facility] KqnnvvxDCFGKCIXKD9445-48-49 16:37:0014.4[facility] UilmqnhYDWJKBUYRT7247-53-81 16:37:007.9[facility]annCHEM DQHUD3581-87-80 15:23:95208Dexhzmia HermannCHEM CVHXM0766-13-11 15:23:00<0.1[facility]annCHEM SBKTT2866-69-74 15:23:000.2 [facility]annCHE[facility] URVTM3018-74-37 15:23:0083[facility]annCHEM PANEL 2018-06-18 15:23:003.5[facility]annCHEM HWGHQ4993-74-34 15:23:0024[facility]annCHEM BQIEL8224-15-01 15:23:003.7[facility]annCHEM LKNJT6390-28-90 15:23:0015[facility]annCHEM EPGNH2993-89-27 15:23:00 Test Item Value Reference Range Interpretation Comments A/G Ratio (test code = A/G Ratio) 0.9 1 0.7-1.6 [facility]CHE[facility] ZRQJE9842-96-37 15:23:007.2[facility] HermannELECTROLYTES 2018-06-18 15:23:0012.8[facility] DsyvzkrMVIJLEEJBZEA3481-41-72 15:23:69993 [facility] NvnxacpIYYZAPRBBMBJ9458-27-36 15:23:009.0[facility] HermannELECTROLYTES 2018-06-18 15:23:0021[facility] RyxxnziXGPWJCPOCWTD4201-60-53 15:23:98695Eadrjszb CfaamaaFGXTIAZYGQST7177-94-04 15:23:003.8[facility] NptjlwhUBWXVCKQFRYO1330-93-30 15:23:40514Ikobffdm LmggpyvXZXLESKZKDUX9208-81-90 15:23:000.65[facility] YLOPYPTWNSWL0662-95-43 15:23:0011[facility] HysokaeGVFIPRQQUBED9295-43-43 15:23:00 99[facility] HovbuidXIYOFGDJQMPWC2549-43-14 15:23:00Negative *NA*(06/18/18 9:23 AM)[facility] JijfpjfZVJDOVWUJF2143-51-64 15:23:000.1[facility] [facility] 2018-06-18 15:23:000.2[facility] OhxuuqeJAMRAEKMEE5079-92-14 15:23:000.8[facility] HcvxnosZNKNOVDXWU9212-67-66 15:23:000.6[facility] AcccyhwAITJSQVAHD9334-79-78 15:23:003.0[facility] EmctlzuDXPHRFKWID8809-88-67 15:23:006.3[facility] FEPXXDXZJT8426-69-24 15:23:007.4[facility] ZmrlozfJBAAZMWQPV7392-11-76 15:23:002.2 [facility] AiyqgfhZGUMSDGNBP1822-45-52 15:23:0060.8[facility]ann[facility]OLOGY 2018-06-18 15:23:0029.0[facility] CagqinlMMPFSALIMA0704-15-79 15:23:0013.8[facility] FwngrsuSVAHDUWIRK3810-80-08 15:23:004.84[facility] DkwcwwrPWTSCTQPNZ6992-60-00 15:23:0010.4[facility] JrddvqsVYPUYGVDHA2772-25-43 15:23:0041.8[facility] OZPGTXQRRP4364-44-86 15:23:008.1[facility] BsfggpxHTEGHJNETK9950-26-46 15:23:32313 [facility] BnfrwtwURTWPBXAUI7156-97-20 15:23:0014.1[facility]ann[facility]OLOGY 2018-06-18 15:23:0033.1[facility] KapychzVRWDJXHXGD5763-90-61 15:23:00 Test Item Value Reference Range Interpretation Comments MCH (test code = MCH) 28.5 pg 27.0-31.0 [facility] RwdlvwiFWSPFUMHUG6749-50-88 15:23:0086.3[facility] STOOL 2018-06-18 15:23:00<1[facility] ZDKXA7629-18-16 15:23:00 Negative (06/18/18 9:23 AM)[facility] GJFAG7775-22-44 15:23:00 Negative (06/18/18 9:23 AM)[facility] AJXGO3175-07-88 15:23:00 Negative (06/18/18 9:23 AM)[facility] ZKKTB2158-94-44 15:23:00 Negative *NA*(06/18/18 9:23 AM)[facility] HFVKC0694-30-77 15:23:00Light Yellow *NA*(06/18/18 9:23 AM)[facility] STOOL 2018-06-18 15:23:00Clear (06/18/18 9:23 AM)[facility] STOOL 2018-06-18 15:23:001[facility] CAKHR2936-08-67 15:23:00 Test Item Value Reference Range Interpretation Comments UA Spec Grav (test code = UA Spec 1.007 1 Grav) [facility] QDXZJ8678-28-55 15:23:00 Test Item Value Reference Range Interpretation Comments UA pH (test code = UA pH) 5.5 1 5.0-8.0 [facility] KkmphqkGHEJVLCBX3975-57-83 15:35:00Negative (08/05/2013 09:35:00) [facility]
== END 2020-01-05 11:45 | disposition home or self-care (01) ==
LOC: ER 10:18
DX: F41.9 Anxiety disorder, unspecified (principal); F17.210 Nicotine dependence, cigarettes, uncomplicated; Z88.5 Allergy status to narcotic agent; Z88.8 Allergy status to other drugs, medicaments and biological substances
CPT/HCPCS: 81003; 81025; 99283; Q0169

== ENCOUNTER 2020-03-09 17:13 | Emergency (ER) | payer BC ==
--- OUTSIDE RECORDS SUMMARY | 2020-03-09 17:16 | XMS REPORT | Continuity of Care Document ---
:1995 Author Organization [facility] Care Team Providers Name Role Phone [facility] Unavailable Un available Problems Problem Status Onset Classification Date Comments Sourc e Date Reported Acute 09/04/19 09/06/2019 MH The pharyngitis, 20 [place] [facility] unspecified THROAT ISSUES Active 09/03/19 MH The 20 [facility] Right upper 07/15/20 01/24/2019 The quadrant pain 18 [place] [facility] Unspecified 07/07/20 01/24/2019 The abdominal pain 18 [facility] ABD PAIN Active 07/07/20 The 18 [facility] Calculus of 06/25/20 01/07/2019 The gallbladder with 18 [facility] acute cholecystitis without obstruction SYMPTOMATIC Active 06/18/20 The CHOLEITHIASIS 18 [place] [facility] GALLBLADDER Active 06/18/20 The ISSUES 18 [facility] Bipolar Active Problem 08/07/2013 The (qualifier value) Wo [facility] Nausea with 01/24/2019 The vomiting, [facility] unspecified 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 CHOLECYSTITI Medications Medication Details Route Status Patient [...] 17 Inactive H The kg, Asthma, 2019 [facility] Start date: 09/04/19 0:45:00 [employer], Stop date: 09/04/19 0:45:00 [employer] CLERK, Pediatric Dosing Tylenol Notes: Max Inactive The acetaminophen 2019 [facility] 4000 mg/day (4 gm/day). (Same as: Tylenol Extra Strength) Magic Mouthwash Notes: Magic No Longer H The (Benadryl/Lidocai mouth wash Active 2019 [facility] ne/Maalox/) 1:1:1 contains:Benadr yl/Lidocaine/Ma alox/) 1:1:1; total volume 5 ml Morphine 4 mg, Route: Inactive The IVP, ONCE, 2017 [facility] Dosing Weight 105.085, kg, Priority: STAT, Start date: 07/07/18 4:34:00 [employer]ERK, Stop date: 07/07/18 4:34:00 [employer] AND [employer]ORAGE CLERK Ketorolac 15 mg, Route: Inactive The IVP, Drug form: 2017 [facility] INJ, ONCE, Dosing Weight 105.085, kg, Priority: STAT, Start date: 07/07/18 4:33:00 [employer]ERK, Stop date: 07/07/18 4:33:00 [employer] AND [employer]ORAGE CLERK remove patch Notes: WASTE: Inactive T he F/P - P Waste 2017 [facility] Black; E - P Waste Black Habitrol Notes: (Same No Longer The as: Habitrol) Active 2017 [facility] "Remove old patch before application of new [...] MG Oral as: Colace) (Do Active 2017 [facility] Capsule [Colace] Not Crush) chlorhexidine Notes: (Same No Longer The gluconate 40 As: Hibiclens) Active 2017 [facility] MG/ML Medicated Liquid Soap Nicotine Notes: (Same Inactive The as: Habitrol) [facility] "Remove old patch before application of new patch" WASTE: F/P - P Waste Black; E - P Waste Black Acetaminophen 300 Notes: Do not No Longer The MG / Codeine exceed 4gm/day Active 2017 [facility] Phosphate 30 MG of Oral Tablet acetaminophen. [Tylenol with (Same as: Codeine #3] Tylenol with Codeine # 3) hydromorphone Route: IV, Drug Inactive H The (ANES) form: INJ, 2017 [facility] ONCE, Stop date: 06/18/18 19:26:00 [employer] AND [employer]ORAGE CLERK ketOROLAC (ANES) IV, ONCE Inactive Th e [facility] neostigmine Route: IV, Drug Inactive The (ANES) form: INJ, 2017 [facility] , Stop date: 06/18/18 19:26:00 [employer] AND [employer]ORAGE CLERK glycopyrrolate Route: IV, Drug Inactive The (ANES) form: [id number] ONCE, Stop date: 06/18/18 19:26:00 SP[employer] AND STORAGE CLERK dexamethasone Route: IV, Drug Inactive H The (ANES) form: INJ, [facility] ONCE, Stop date: 06/18/18 19:20:00 [employer] AND STORAGE CLERK ondansetron Route: IV, Drug Inactive The (ANES) form: INJ, 2017 [facility] ONCE, Stop date: 06/18/18 19:05:00 [employer] AND STORAGE CLERK fentaNYL (ANES) Route: IV, Drug Inactive The form: [id number] ONCE, Stop date: 06/18/18 19:05:00 [employer] AND STORAGE CLERK lidocaine (ANES) Route: IV, Drug Inactive The form: [id number] ONCE, Stop date: 06/18/18 19:00:00 [employer] AND STORAGE CLERK famotidine (ANES) Route: IV, Drug Inactive 06/19 The form: [id number] [facility] , Stop date: 06/18/18 19:00:00 SP[employer] AND STORAGE CLERK midazolam (ANES) Route: IV, Drug Inactive The form: SOLN, 2017 [facility] ONCE, Stop date: 06/18/18 19:00:00 SP[employer] AND STORAGE CLERK rocuronium (ANES) Route: IV, Drug Inactive 06/19 The form: INJ, 2017 [facility] ONCE, Stop date: 06/18/18 19:00:00 [employer] AND STORAGE CLERK propofol (ANES) Route: IV, Drug Inactive The form: INJ, 2017 [facility] ONCE, Stop date: 06/18/18 19:00:00 [employer] AND STORAGE CLERK fentaNYL (ANES) Route: IV, Drug Inactive The form: INJ, 2017 [facility] ONCE, Stop date: 06/18/18 19:00:00 [employer] AND STORAGE CLERK Zosyn Notes: (Same No Longer The as: Zosyn) Active 2017 [facility] Dosing based on Piperacillin component MEDICATION WASTE Product Size: 3375 mg Product Wasted: ___ mg piperacillin-tazo Route: IV, Drug Inactive 06/19 The bactam (ANES) form: INJ, 2017 [place] [facility] ONCE, Stop date: 06/18/18 18:55:00 SP[employer] AND STORAGE CLERK Ondansetron Notes: (Same No Longer Th e as: Zofran) Active 2017 [facility] MEDICATION WASTE Product Size: 4 mg Product Wasted: ___ mg Fentanyl Notes: (Same No Longer The as: Sublimaze) Active 2017 [facility] Preservative free. Morphine Notes: (Same Inactive The as:MORPhine 2017 [facility] Sulfate) Naloxone Notes: Same as No Longer The Narcan Active 2017 [facility] Flumazenil Notes: (Same No Longer The as: Romazicon) Active 2017 [facility] Lactated Ringers Route: IV, Inactive The Injection IV Total Volume: 2017 [facility] (ANES) 1000 mL 1,000, Start date: 06/18/18 18:11:00 [employer] AND [employer] CLERK, Stop date: 06/18/18 19:11:00 [employer] AND STORAGE CLERK Lactated Ringers 1,000 mL, Rate: No Longer 06/18 The IV 1,000 mL 40 ml/hr, Active 2017 [facility] Infuse over: 25 hr, Route: IV, Dosing Weight 106.136 kg, Total Volume: 1,000, Start date: 06/18/18 17:02:00 [employer] CLERK, Duration: 30 day, Stop date: 07/18/18 17:01:00 [employer] AND STORAGE CLERK, 2.17, m2 Fentanyl Notes: (Same Inactive The as: Sublimaze) [address] [place] [address] Preservative free. Naloxone Notes: Same as Inactive The Narcan 2017 [facility] Ephedrine Notes: final Inactive The concentration 5 2017 [facility] mg/mL Diphenhydramine Notes: (Same Inactive The as: Benadryl) [address] [place] [address] Meperidine Notes: (Same Inactive The as: Demerol) [address] [place] [address] "Use Precaution in Elderly, Seizure disorders, and Renal impairment&quot ; Morphine Notes: (Same Inactive The as:MORPhine [address] [place] [address] Sulfate) Flumazenil Notes: (Same Inactive The as: Romazicon) [address] [place] [address] Oxycodone Notes: (Same Inactive The as: Roxicodone) [address] [place] [address] Promethazine 6.25 mg, 25 mL, Inactive The Route: IVPB, 2017 [facility] Drug form: SOLN, ONCE, Dosing Weight 108.227, kg, PRN Nausea & Vomiting, Start date: 06/18/18 13:52:00 SP[employer] AND STORAGE CLERK Dexamethasone Notes: Inactive The Concentration: 2017 [facility] 4mg/ml Ondansetron Notes: (Same Inactive The as: Zofran) [address] [place] [address] MEDICATION WASTE Product Size: 4 mg Product Wasted: ___ mg 72 HR Scopolamine Notes: Change Inactive The 0.0139 MG/HR patch every [address] [facility] Transdermal Patch hours (Same as: Transderm-Scop) Lorazepam Notes: (Same Inactive The as: Ativan) [address] [place] [address] Labetalol Notes: (Same Inactive The as: Normodyne, [address] [place] [address] Trandate) Push over 2 minutes Give bolus over 2-3 minutes. Hydralazine Notes: (Same Inactive The as: Apresoline) [address] [place] [address] s Push over 5 minutes ANES Enalaprilat Notes: (Same Inactive H The as: Vasotec-IV) 2017 [facility] esmolol Notes: (Same Inactive The as: Brevibloc) 2017 [facility] Acetaminophen Notes: Max Inactive The acetaminophen 2017 [facility] 4000 mg/day (4 gm/day). (Same as: Tylenol Extra Strength) Metoprolol Notes: (Same Inactive The as: Lopressor) 2017 [facility] Push over 2 minutes Zosyn Notes: (Same Inactive The as: Zosyn) 2017 [facility] Dosing based on Piperacillin component MEDICATION WASTE Product Size: 4500 mg Product Wasted: ___ mg Dilaudid Notes: Same as: No Longer Th e Dilaudid Active 2017 [facility] Ketorolac 15 mg, Route: Inactive The IVP, Drug form: 2017 [facility] INJ, ONCE, Dosing Weight 108.227, kg, Priority: STAT, Start date: 06/18/18 10:34:00 [employer] AND [employer] CLERK, Stop date: 06/18/18 10:34:00 [employer] AND STORAGE CLERK Dilaudid Notes: Same as Inactive The Dilaudid 2017 [facility] Hydromorphone Notes: Same as: Inactive H The Dilaudid 2017 [facility] Sodium Chloride 1,000 mL, 1000 Inactive The 0.9% (Bolus) IV ml/hr, Infuse 2017 [facility] Over: 1 hr, Route: IV, 1,000, Drug form: INJ, ONCE, Priority: STAT, Dosing Weight 108.227 kg, Start date: 06/18/18 9:17:00 [employer] CLERK, Stop date: 06/18/18 9:17:00 [employer] AND STORAGE CLERK MiraLax oral 17 gm, PO, Active [place] The powder for Daily, # 527 2013 [facility] reconstitution gm, 0 Refill(s) magnesium citrate 300 mL, Route: Inactive Xanderalex 08/05 The PO, Drug Form: 2013 [facility] LIQ, Dosing Weight 81.818, kg, ONCE, Start date: 08/05/13 9:00:00, Stop date: 08/05/13 9:00:00(Same as: Citrate of Magnesia) lithium 300 mg 0 Refill(s) Active e oral tablet 2013 [facility] trazodone 100 mg 0 Refill(s) Active The oral tablet 2013 [facility] Allergies, Adverse Reactions, Alerts Substance Category Reaction Severity Reaction Status Date Comments S ource type Reported morphine Assertion Drug Active allergy [facility] [place] Assertion Drug Active The allergy [facility] LaMICtal Assertion Drug Active e allergy [facility] Immunizations No Data Provided for This Section Results Order Name Results Value Reference Date Interpretation Comments Hanh rce Range IMMUNOLOGY [place] Scr Negative Negative 09/04 The (09/03/19 11:39 PM) /2019 [facility] nds RAPID Grp A Strep Negative Negative 09/04 The Scr (09/03/19 11:39 PM) /2019 [facility] nds CHEM PANEL A/G Ratio 1.1 0.7 - 1.6 07/07 The [facility] CHEM PANEL Albumin Lvl 3.8 3.5 - 5.0 07/07 The [facility] CHEM PANEL ALT 29 0 - 65 07/07 The [facility] CHEM PANEL AST 18 0 - 37 07/07 The [facility] CHEM PANEL Globulin 3.6 2.7 - 4.2 07/07 The [facility] CHEM PANEL Bili Unable to 0.0 - 1.0 07/07 The Indirect Calculate [facility] CHEM PANEL Bili Total 0.2 0.2 - 1.3 07/07 The [facility] CHEM PANEL Alk Phos 91 39 - 136 07/07 The [facility] CHEM PANEL Bili Direct <0.1 0.0 - 0.3 07/07 The [facility] CHEM PANEL Total 7.4 6.4 - 8.4 07/07 The Protein [facility] CHEM PANEL Lipase Lvl 168 73 - 393 07/07 The [facility] ELECTROLYT AGAP 13.7 10.0 - 12 MH The ES 20.0 [facility] ELECTROLYT eGFR 130 07/07 Result The ES Comment: [place] eGFR is calculated using the CKD-EPI formula. [...] - 12/10 MH The ES Lvl 1.40 [facility] ELECTROLYT BUN 11 7 - 22 12 MH The [facility] ELECTROLYT Glucose Lvl 93 70 - 99 12 MH The [facility] ELECTROLYT CO2 26 24 - 32 12 MH The [facility] ELECTROLYT Chloride Lvl 107 95 - 109 12/ MH The [facility] ELECTROLYT Potassium 3.7 3.5 - 5.1 07/07 MH [facility] ELECTROLYT Sodium Lvl 143 135 - 145 12/10 MH The [facility] ELECTROLYT Calcium Lvl 8.9 8.5 - 10.5 12/10 MH The [facility] ENDOCRINOL S Preg Negative Negative 07/07 MH The OGY *NA* /2017 [facility] (07/07/18 4:55 AM) HEMATOLOGY MPV 8.1 7.4 - 10.4 1210 MH [facility] HEMATOLOGY Platelet 311 133 - 450 12/10 MH The [facility] HEMATOLOGY MCH 28.6 27.0 - 12/10 MH The 31.0 [facility] HEMATOLOGY MCHC 33.4 32.0 - 1210 MH The 36.0 [facility] HEMATOLOGY MCV 85.6 80.0 - 1210 MH The 98.0 [facility] HEMATOLOGY Hct 39.9 36.0 - 1210 MH The 48.0 [facility] HEMATOLOGY RDW 13.7 11.5 - 1210 MH The 14.5 /2017 [facility] HEMATOLOGY RBC 4.66 4.20 - 12/10 MH The 5.40 /2017 [facility] HEMATOLOGY Hgb 13.3 12.0 - 1210 MH The 16.0 /2017 [facility] HEMATOLOGY WBC 13.5 3.7 - 10.4 12/10 MH The /2017 [facility] HEMATOLOGY Eosinophils 0.2 0.0 - 0.5 12/10 MH The # [facility] HEMATOLOGY Segs 61.9 45.0 - 1210 MH The 75.0 [facility] HEMATOLOGY Neutrophils 8.4 1.5 - 8.1 12/10 MH The # [facility] HEMATOLOGY Basophils 0.3 0.0 - 1.0 12/10 MH The /2017 [facility] HEMATOLOGY Lymphocytes 4.2 1.0 - 5.5 12/10 MH The # [facility] HEMATOLOGY Monocytes # 0.7 0.0 - 0.8 12/10 MH The /2017 [facility] HEMATOLOGY Lymphocytes 31.0 20.0 - 1210 MH The 40.0 [facility] HEMATOLOGY Monocytes 5.4 2.0 - 12.0 12/10 MH The /2017 [facility] HEMATOLOGY Eosinophils 1.4 0.0 - 4.0 12/10 MH The [facility] URINE AND UA <=1.0 0.1 - 1.0 07/07 MH The STOOL Urobilinogen mg/dL /[facility] URINE AND UA Mucus Few /LPF None Seen 07/07 MH The STOOL /LPF /2017 [facility] URINE AND UA RBC 2 0 - 2 07/07 MH The STOOL /[facility] URINE AND UA WBC <1 0 - 5 07/07 MH The STOOL /2017 [facility] URINE AND UA Spec Grav 1.014 <=1.030 07/07 MH The STOOL /2017 [facility] URINE AND UA Turbidity Clear Clear 07/07 [...] Negative 07/07 The STOOL mg/dL mg/dL /2017 [facility] URINE AND UA Glucose Negative Negative 07/07 The STOOL mg/dL mg/dL /2017 [facility] URINE AND UA Leuk Est Negative Negative 07/07 The STOOL (07/07/18 4:55 AM) /2017 [facility] URINE AND UA Nitrite Negative Negative 07/07 The STOOL (07/07/18 4:55 AM) /2017 [facility] URINE AND UA Sq Epi Moderate Few /LPF 07/07 The STOOL /LPF /2017 [facility] URINE AND UA Blood Negative Negative 07/07 The STOOL (07/07/18 4:55 AM) /2017 [facility] URINE AND UA Bili Negative Negative 07/07 The STOOL *NA* /2017 [facility] (07/07/18 4:55 AM) HEMATOLOGY MPV 8.0 7.4 - 10.4 06/20 The [facility] HEMATOLOGY Platelet 241 133 - 450 06/20 The [facility] HEMATOLOGY MCH 29.2 27.0 - 06/20 The 31.0 [facility] HEMATOLOGY MCV 86.7 80.0 - 06/20 The 98.0 [facility] HEMATOLOGY Hgb 11.6 12.0 - 06/20 The 16.0 [facility] HEMATOLOGY Hct 34.4 36.0 - 06/20 The 48.0 [facility] HEMATOLOGY WBC 10.3 3.7 - 10.4 06/20 The [facility] HEMATOLOGY RBC 3.97 4.20 - 06/20 The 5.40 [facility] HEMATOLOGY RDW 14.3 11.5 - 06/20 The 14.5 [facility] HEMATOLOGY MCHC 33.7 32.0 - 06/20 The 36.0 [facility] CHEM PANEL eGFR 130 06/19 Result Comment: [place] eGFR is calculated using the CKD-EPI formula. [...] Globulin 3.1 2.7 - 4.2 06/19 The [facility] CHEM PANEL A/G Ratio 1.0 0.7 - 1.6 06/19 The [facility] CHEM PANEL AST 21 0 - 37 06/19 The [facility] CHEM PANEL AGAP 11.8 10.0 - 06/19 The 20.0 [facility] CHEM PANEL B/C Ratio 13 6 - 25 06/19 The [facility] CHEM PANEL Alk Phos 69 39 - 136 06/19 The [facility] CHEM PANEL Bili Total 0.3 0.2 - 1.3 06/19 The [facility] CHEM PANEL CO2 25 24 - 32 06/19 The [facility] CHEM PANEL Calcium Lvl 8.4 8.5 - 10.5 06/19 The [facility] CHEM PANEL ALT 24 0 - 65 06/19 The [facility] CHEM PANEL Total 6.1 6.4 - 8.4 06/19 The Protein [facility] CHEM PANEL Albumin Lvl 3.0 3.5 - 5.0 06/19 The [facility] CHEM PANEL Creatinine 0.61 0.50 - 06/19 The Lvl 1.40 [facility] CHEM PANEL Chloride Lvl 109 95 - 109 06/19 The [facility] CHEM PANEL Sodium Lvl 142 135 - 145 06/19 The [facility] CHEM PANEL Potassium 3.8 3.5 - 5.1 06/19 The Lvl [facility] CHEM PANEL BUN 8 7 - 22 06/19 The [facility] CHEM PANEL Glucose Lvl 124 70 - 99 06/19 The [facility] HEMATOLOGY WBC 12.6 3.7 - 10.4 06/19 The [facility] HEMATOLOGY Hgb 12.2 12.0 - 06/19 The 16.0 [facility] HEMATOLOGY RBC 4.31 4.20 - 06/19 The 5.40 /2017 [facility] HEMATOLOGY Hct 37.1 36.0 - 06/19 The 48.0 [facility] HEMATOLOGY MCH 28.4 27.0 - 06/19 MH The 31.0 [facility] HEMATOLOGY MCV 86.0 80.0 - 06/19 The 98.0 [facility] HEMATOLOGY Platelet 268 133 - 450 06/19 The [facility] HEMATOLOGY MCHC 33.0 32.0 - 06/19 The 36.0 [facility] HEMATOLOGY RDW 14.4 11.5 - 06/19 The 14.5 [facility] HEMATOLOGY MPV 7.9 7.4 - 10.4 06/19 The [facility] CHEM PANEL Lipase Lvl 106 73 - 393 06/18 The [facility] CHEM PANEL Bili Unable to 0.0 - 1.0 06/18 The Indirect Calculate [facility] CHEM PANEL Bili Direct <0.1 0.0 - 0.3 06/18 The [facility] CHEM PANEL Bili Total 0.2 0.2 - 1.3 06/18 The [facility] CHEM PANEL Alk Phos 83 39 - 136 06/18 The [facility] CHEM PANEL Albumin Lvl 3.5 3.5 - 5.0 06/18 The [facility] CHEM PANEL ALT 24 0 - 65 06/18 The [facility] CHEM PANEL Globulin 3.7 2.7 - 4.2 06/18 The [facility] CHEM PANEL AST 15 0 - 37 06/18 The [facility] CHEM PANEL A/G Ratio 0.9 0.7 - 1.6 06/18 The [facility] CHEM PANEL Total 7.2 6.4 - 8.4 06/18 The Protein [facility] ELECTROLYT AGAP 12.8 10.0 - 06/18 MH The ES 20.0 [facility] ELECTROLYT eGFR 128 06/18 Result MH The ES /2017 Comment: [place] eGFR is calculated using the CKD-EPI formula. [...] Lvl 9.0 8.5 - 10.5 06/18 The [facility] ELECTROLYT CO2 21 24 - 32 06/18 The [facility] ELECTROLYT Sodium Lvl 139 135 - 145 06/18 MH The [facility] ELECTROLYT Potassium 3.8 3.5 - 5.1 06/18 The ES Lvl /2017 [facility] ELECTROLYT Chloride Lvl 109 95 - 109 06/18 The [facility] ELECTROLYT Creatinine 0.65 0.50 - 06/18 MH The ES Lvl 1.40 [facility] ELECTROLYT BUN 11 7 - 22 06/18 The [facility] ELECTROLYT Glucose Lvl 99 70 - 99 06/18 The [facility] ENDOCRINOL S Preg Negative Negative 06/18 The OGY *NA* [facility] (06/18/18 9:23 AM) HEMATOLOGY Basophils # 0.1 0.0 - 0.2 06/18 [facility] HEMATOLOGY Eosinophils 0.2 0.0 - 0.5 06/18 The # [facility] HEMATOLOGY Monocytes # 0.8 0.0 - 0.8 06/18 The [facility] HEMATOLOGY Basophils 0.6 0.0 - 1.0 06/18 The [facility] HEMATOLOGY Lymphocytes 3.0 1.0 - 5.5 06/18 The # [facility] HEMATOLOGY Neutrophils 6.3 1.5 - 8.1 06/18 The [facility] HEMATOLOGY Monocytes 7.4 2.0 - 12.0 06/18 The [facility] HEMATOLOGY Eosinophils 2.2 0.0 - 4.0 06/18 The [facility] HEMATOLOGY Segs 60.8 45.0 - 06/18 The 75.0 /2017 [facility] HEMATOLOGY Lymphocytes 29.0 20.0 - 06/18 MH The 40.0 /2017 [facility] HEMATOLOGY Hgb 13.8 12.0 - 06/18 The 16.0 /2017 [facility] HEMATOLOGY RBC 4.84 4.20 - 06/18 MH The 5.40 /2017 [facility] HEMATOLOGY WBC 10.4 3.7 - 10.4 06/18 The /2017 [facility] HEMATOLOGY Hct 41.8 36.0 - 06/18 The 48.0 [facility] HEMATOLOGY MPV 8.1 7.4 - 10.4 06/18 The /2017 [facility] HEMATOLOGY Platelet 277 133 - 450 06/18 The [facility] HEMATOLOGY RDW 14.1 11.5 - 06/18 The 14.5 [facility] HEMATOLOGY MCHC 33.1 32.0 - 06/18 The 36.0 [facility] HEMATOLOGY MCH 28.5 27.0 - 06/18 The 31.0 [facility] HEMATOLOGY MCV 86.3 80.0 - 06/18 The 98.0 [facility] URINE AND UA <=1.0 0.1 - 1.0 06/18 The STOOL Urobilinogen mg/dL /2017 [facility] URINE AND UA WBC <1 0 - 5 06/18 The STOOL /2017 [facility] URINE AND UA Sq Epi Few /LPF Few /LPF 06/18 The STOOL /2017 [facility] URINE AND UA Leuk Est Negative Negative 06/18 The STOOL (06/18/18 9:23 AM) /2017 [place] [facility] URINE AND UA Blood Negative Negative 06/18 The STOOL (06/18/18 9:23 AM) /2017 [facility] URINE AND UA Nitrite Negative Negative 06/18 The STOOL (06/18/18 9:23 AM) /2017 [facility] URINE AND UA Ketones Negative Negative 06/18 The STOOL mg/dL mg/dL [facility] URINE AND UA Bili Negative Negative 06/18 The STOOL *NA* /2017 [facility] (06/18/18 9:23 AM) URINE AND UA Color Light Yellow Yellow 06/18 The STOOL *NA* /2017 [facility] (06/18/18 9:23 AM) URINE AND UA Turbidity Clear Clear 06/18 The STOOL (06/18/18 9:23 AM) /2017 [facility] URINE AND UA RBC 1 0 - 2 06/18 MH The STOOL /2017 [facility] URINE AND UA Protein Negative Negative 06/18 MH The STOOL mg/dL mg/dL /2017 [facility] URINE AND UA Glucose Negative Negative 06/18 The STOOL mg/dL mg/dL /2017 [facility] URINE AND UA Spec Grav 1.007 <=1.030 06/18 The STOOL /2017 [facility] URINE AND UA pH 5.5 5.0 - 8.0 06/18 MH The STOOL /2017 [facility] CHEMISTRY U Preg Negative Negative 08/05 Normal MH The [facility]08/05/2013 09:35:00[facility] No Data Provided for This Section Diagnostic Reports Report Value Date Source ED Abdomen/Pelvis IV CT ABDOMEN AND PELVIS WITH CONTRAST [place] [facility] 07/07/2018. 07/07/[address] [place] [address] CLINICAL INDICATION: Acute r [...] US Clinical Indication: - RUQ pain; 06/18/2018 [facility] Comparison: None TECHNIQUE: Grayscale and limited color [...] without evidence of acute chol ecystitis. SL: [id number] Abdomen 2 views Name: VENANCIO GONZALEZ 08/05/2013 [...] Date Comments Source Heart Rate 73 09/04/2019 [facility] s Respitory Rate 18 09/04/2019 MH [facility] [place] [facility] Systolic (mm Hg) 130 09/04/2019 [facility] [place] Diastolic (mm Hg) 75 09/04/2019 [facility] [place] [facility] Systolic (mm Hg) 134 09/04/2019 [facility] [place] Diastolic (mm Hg) 72 09/04/2019 [facility] [place] Heart Rate 89 09/04/2019 The [place] [facility] Respitory Rate 18 09/04/2019 [facility] [place] Height 152.4 cm 09/04/2019 [facility] [place] [facility] BMI Calculated 46 09/04/2019 [facility] [place] Weight 106.847 09/04/2019 The [place] [facility] Respitory Rate 14 07/07/2018 The [place] [...] [facility] Heart Rate 82 07/07/2018 The [place] Weight 105.085 07/07/2018 The [place] BMI Calculated 45.25 07/07/2018 The [place] Height 152.4 cm 07/07/2018 The [place] Heart Rate 90 07/07/2018 The [place] [facility] Temperature Oral (F) 97.6 F 06/20/2018 [place] Heart Rate 64 06/20/2018 The [place] Respitory Rate 18 06/20/2018 [facility] [place] Systolic (mm Hg) 95 06/20/2018 [facility] [place] Diastolic (mm Hg) 64 06/20/2018 The [facility] Respitory Rate 18 06/20/2018 [facility] [place] Heart Rate 73 06/20/2018 The [place] [facility] Systolic (mm Hg) 108 06/20/2018 [facility] [place] Diastolic (mm Hg) 71 06/20/2018 The [place] [facility] Temperature Oral (F) 98.1 F 06/20/2018 [place] Respitory Rate 18 06/20/2018 MH The [place] Systolic (mm Hg) 104 06/20/2018 MH [facility] [place] Diastolic (mm Hg) 66 06/20/2018 MH The [place] [facility] Heart Rate 85 06/20/2018 The [place] [facility] Temperature Oral (F) 98.3 F 06/20/2018 MH [place] Height 152.4 cm 06/18/2018 The [place] BMI Calculated 45.7 06/18/2018 MH The [place] Weight 106.136 06/18/2018 MH The [place] BMI Calculated 46.6 06/18/2018 MH The [place] Weight 108.227 06/18/2018 MH The [place] Height 152.4 cm 06/18/2018 MH The [place] Weight 108.227 06/18/2018 The [place] Respitory Rate 7 08/05/2013 MH The [place] Systolic (mm Hg) 99 08/05/2013 MH The [place] Diastolic (mm Hg) 55 08/05/2013 The [place] Heart Rate 63 08/05/2013 [facility] Weight 81.818 08/05/2013 [facility] Height 152.4 cm 08/05/2013 [facility] Respitory Rate 18 08/05/2013 [facility] Heart Rate 67 08/05/2013 [facility] Diastolic (mm Hg) 76 08/05/2013 [facility] Systolic (mm Hg) 122 08/05/2013 [facility] Encounters Location Location Encounter Encounter Reason Attending ADM DC Stat us Source Details Type Number For Provider Date Date Visit [facility] [id number] PRASHANT EDOZNO 08/05 08/05 Active [facility] [place] [facility] Observation [id number] Jackie 06/18 06/20 The [facility] Emergency [id number] Miguel 07/07 07/07 The Bucky Jensen Jr [facility] and [facility] Emergency [id number] Julee 09/04 09/04 The Bucky Glynn /2019 [facility] Procedures Procedure Code Date Perfomer Comments Source Cholecystectomy [id number] [facility] Dissection [id number] The tonsillectomy [facility] Assessment and Plan Assessment and Plan Date Source Extracted from:Title: Clinical Document 06/20/2018 [facility] Author: Jackie Wayne MD Date: 06/20/18 doing [...] History Date Source Social History TypeResponse 06/18/2018 [facility] garthtacos Alcohol Current, Type Beer, [...]
--- OUTSIDE RECORDS SUMMARY | 2020-03-09 17:17 | XMS REPORT | Continuity of Care Document ---
:1995 Author Organization [facility] t Address [address] [place] [address] Care Team Providers Name Role Phone Sarah Glynn Attending Clinician Nimesh Jensen Jr Attending Clinician Rosana Attending Clinician Rosana Admitting Clinician Problems Condition Condition Condition Status Onset Resolution Last Treating Co mments Source Name Details Category Date Date Treatment Clinician Date THROAT Diagnosis Active 2019-09-07 Mem oria ISSUES - 13:33:00 l THROAT 00:00: [place] ISSUES 00 Active 09/03/2019 [facility] ABD PAIN Diagnosis Active 2017-072018-07-07 M emoria 2- 05:31:00 l ABD PAIN 00:00: Michael n 00 Active 07/07/2018 [facility] SYMPTOMATI Diagnosis Active 2017-072018-06-20 Memoria C 08-18 16:07:00 l CHOLEITHIA 00:00: Michael n SIS SYMPTOMATI 00 C CHOLEITHIA SIS Active 06/18/2018 [facility] GALLBLADDE Diagnosis Active 2017-072018-06-18 Memoria R ISSUES 08-18 11:14:00 l 00:00: Bucky GALLBLADDE 00 R ISSUES Active 06/18/2018 [facility] Nausea Problem 2019-01-24 Memor ia with 11:13:49 l vomiting, Nausea Alka nn unspecifie with d vomiting, unspecifie d 01/24/2019 [facility] Acquired Problem 2019-01-24 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:13:49 l other Acquired Michael n specified absence of parts of other digestive specified tract parts of digestive tract 01/24/2019 [place] Nicotine Problem 2019-01-24 Mem oria dependence 11:13:49 l , Nicotine Michael n cigarettes dependence , , uncomplica cigarettes kecia , uncomplica kecia 01/24/2019 [place] Obesity, Problem 2019-01-07 Mem oria unspecifie 12:15:48 l d Obesity, Michael n unspecifie d 01/07/2019 [place] Bipolar Problem 2019-01-07 Usama brian disorder, 12:15:48 l unspecifie Bipolar Her caballero d disorder, unspecifie d 01/07/2019 [place] Body mass Problem 2019-01-07 Me moria index 12:15:48 l (BMI) Body [place] 45.0-49.9, mass index adult (BMI) 45.0-49.9, adult 01/07/2019 [place] Bipolar Problem Active 2013-08-07 Usama brian (qualifier 22:53:36 l value) Bipolar Bucky (qualifier value) Active Problem 08/07/2013 [place] CALCULUS Diagnosis Active 2018-06-20 M emoria OF 16:07:00 l GALLBLADDE CALCULUS He rmann R W/O OF CHOLECYSTI GALLBLADDE TI R W/O CHOLECYSTI TI Active [facility] Acute Problem 2019-09-06 2019-09-06 M emoria pharyngiti 207 22:02:08 22:02:08 l s, Acute 18:00: Bucky unspecifie pharyngiti 00 d s, unspecifie d 09/04/2019 09/06/2019 [place] Right Problem 2017-072019-01-24 2019-01-24 M emoria upper 2-18 11:13:49 11:13:49 l quadrant Right 04:40: Bucky pain upper 22 quadrant pain 07/15/2018 01/24/2019 [place] Unspecifie Problem 2017-072019-01-24 2019-01-24 Memoria d 2-10 11:13:49 11:13:49 l abdominal 06:00: Bucky pain Unspecifie 00 d abdominal pain 07/07/2018 01/24/2019 [place] Calculus Problem 2017-072019-01-07 2019-01-07 Memoria of 08-25 12:15:48 12:15:48 l gallbladde Calculus 04:19: He rmann r with of 08 acute gallbladde cholecysti r with tis acute without cholecysti obstructio tis n without obstructio n 06/25/2018 01/07/2019 [facility] Allergies, Adverse Reactions, Alerts Allergy Allergy Status Severity Reaction(s) Onset Inactive Treating Comm ents Source Name Type Date Date Clinician morphine morphine Active Memori a l [place] Active Memoria l [place] LaMICtal LaMICtal Active Memori a l [place] Social History Social Habit Start Date Stop Date Quantity Comments Source Social History 2018-06-18 [facility]02 Medications Ordered Filled Start [...] tab, PO, l Tablet 06:46: Q8H, PRN [place] [Motrin] 00 Pain, Take with food, # 30 tab, 0 Refill(s) Dexamethaso No = 14 kg to Memoria ne 2-07 < 17 kg, l 06:45: Asthma, [place] 00 Start date: 09/04/19 0:45:00 [employer], Stop date: 09/04/19 0:45:00 [employer], Pediatric Dosing Tylenol No Notes: Max Usama brian 2-07 acetaminop l 03:42: hen 4000 [place] 00 mg/day (4 gm/day). (Same as: Tylenol Extra Strength) Magic No Notes: Memoria Mouthwash 2-07 Magic l (Benadryl/L 03:41: mouth wash [place] idocaine/Ma 00 contains:B alox/) enadryl/Li 1:1:1 docaine/Ma alox/) 1:1:1; total volume 5 ml Morphine 2017-07 No 4 mg, Memoria 2-10 Route: l 10:34: IVP, ONCE, Bucky 00 Dosing Weight 105.085, kg, Priority: STAT, Start date: 07/07/18 4:34:00 [employer], Stop date: 07/07/18 4:34:00 [employer] Ketorolac 2017-07 No 15 mg, Memori a 2-10 Route: l 10:33: IVP, Drug Bucky 00 form: INJ, ONCE, Dosing Weight 105.085, kg, Priority: STAT, Start date: 07/07/18 4:33:00 [employer], Stop date: 07/07/18 4:33:00 [employer] remove 2017-07 No Notes: Memoria patch 08-20 WASTE: F/P l 21:00: - P Waste [place] 00 Black; E - P Waste Black Habitrol 2017-07 No Notes: Memoria 08-19 (Same as: l 22:00: Habitrol) [place] 00 "Remove old patch before applicatio n of new patch" WASTE: F/P - P Waste Black; E - P Waste Black Acetaminoph 2017-07 No See Memori a en 300 MG / 08-19 Instructio l Codeine 19:33: ns, PRN [place] Phosphate 00 for pain, 30 MG Oral [...] Memoria 08-19 (Same as: l 07:00: Habitrol) [place] 00 "Remove old patch before applicatio n [...] 01:26: INJ, ONCE, Stop date: 06/18/18 19:26:00 [employer] ketOROLAC 2017-07 No IV, ONCE Usama brian (ANES) 08-19 l 01:26: B[place] 00 neostigmine 2017-07 No Route: IV, Memoria (ANES) 08-19 Drug form: l 01:26: INJ, ONCE, Stop date: 06/18/18 19:26:00 [employer] glycopyrrol 2017-07 No Route: IV, Memoria ate (ANES) 08-19 Drug form: l 01:26: INJ, ONCE, Stop date: 06/18/18 19:26:00 [employer] dexamethaso 2017-07 No Route: IV, Memoria ne (ANES) 08-19 Drug form: l 01:20: INJ, ONCE, Stop date: 06/18/18 19:20:00 [employer] ondansetron 2017-07 No Route: IV, Memoria (ANES) 08-19 Drug form: l 01:05: INJ, ONCE, Stop date: 06/18/18 19:05:00 [employer] fentaNYL 2017-07 No Route: IV, Mem oria (ANES) 08-19 Drug form: l 01:05: INJ, ONCE, Stop date: 06/18/18 19:05:00 [employer] lidocaine 2017-07 No Route: IV, Me moria (ANES) 08-19 Drug form: l 01:00: INJ, ONCE, Stop date: 06/18/18 19:00:00 [employer] famotidine 2017-07 No Route: IV, M emoria (ANES) 08-19 Drug form: l 01:00: INJ, ONCE, Stop date: 06/18/18 19:00:00 [employer] midazolam 2017-07 No Route: IV, Me moria (ANES) 08-19 Drug form: l 01:00: SOLN, ONCE, Stop date: 06/18/18 19:00:00 [employer] rocuronium 2017-07 No Route: IV, M emoria (ANES) 08-19 Drug form: l 01:00: INJ, ONCE, Bucky 00 Stop date: 06/18/18 19:00:00 [employer] propofol 2017-07 No Route: IV, Mem oria (ANES) 08-19 Drug form: l 01:00: INJ, ONCE, [place] Stop date: 06/18/18 19:00:00 [employer] fentaNYL 2017-07 No Route: IV, Mem oria (ANES) 08-19 Drug form: l 01:00: INJ, ONCE, Bucky Stop date: 06/18/18 19:00:00 [employer] Zosyn 2017-07 No Notes: Memoria 08-19 (Same as: l 01:00: Zosyn) Dosing based on Piperacill in component MEDICATION WASTE Product Size: 3375 mg Product Wasted: ___ mg piperacilli 2017-07 No Route: IV, Memoria n-tazobacta 08-19 Drug form: l m (ANES) 00:55: INJ, ONCE, Her caballero Stop date: 06/18/18 18:55:00 [employer] Ondansetron 2017-07 No Notes: Usama brian 08-19 (Same as: l 00:32: Zofran) MEDICATION WASTE Product Size: 4 mg Product Wasted: ___ mg Fentanyl 2017-07 No Notes: Memoria 08-19 (Same as: l 00:32: Sublimaze) Preservat tin free. Morphine 2017-07 No Notes: Memoria 08-19 (Same l 00:32: as:MORPhin e Sulfate) Naloxone 2017-07 No Notes: Memoria 08-19 Same as l 00:32: Narcan [place] 00 Flumazenil 2017-07 No Notes: Memor ia 08-19 (Same as: l 00:32: Romazicon) Lactated 2017-07 No Route: IV, Mem oria Ringers 08-19 Total l Injection 00:11: Volume: Alka nn IV (ANES) 00 1,000, 1000 mL Start date: 06/18/18 18:11:00 [employer], Stop date: 06/18/18 19:11:00 [employer] Lactated 2017-07 No 1,000 mL, Usama brian Ringers IV 08-18 Rate: 40 l 1,000 mL 23:02: ml/hr, Infuse over: 25 hr, Route: IV, Dosing Weight 106.136 kg, Total Volume: 1,000, Start date: 06/18/18 17:02:00 [employer], Duration: 30 day, Stop date: 07/18/18 17:01:00 [employer], 2.17, m2 Fentanyl 2017-07 No Notes: Memoria [...] e -21 25 mL, l 19:52: Route: [place] 00 IVPB, Drug form: SOLN, ONCE, Dosing Weight 108.227, kg, PRN Nausea & Vomiting, Start date: 06/18/18 13:52:00 [employer] Dexamethaso 2017-07 No Notes: Usama brian ne [...] a 08-18 (Same as: l 19:52: Ativan) Bucky 00 Labetalol 2017-07 No Notes: Memori a 08-18 (Same as: l 19:52: Normodyne, [place] 00 Trandate) Push over 2 minutes Give bolus over 2-3 minutes. Hydralazine 2017-07 No Notes: Usama brian 08-18 (Same as: l 19:52: Apresoline ) Push over 5 minutes ANES 2017-07 No Notes: Memoria Enalaprilat 08-18 (Same as: l 19:52: Vasotec-IV ) esmolol 2017-07 No Notes: Memoria 08-18 (Same as: l 19:52: Brevibloc) Bucky 00 Acetaminoph 2017-07 No Notes: Max Memoria [...] kg, Priority: STAT, Start date: 06/18/18 10:34:00 [employer], Stop date: 06/18/18 10:34:00 [employer] Dilaudid 2017-07 No Notes: Memoria 08-18 Same as l 16:18: Dilaudid B[place] 00 Hydromorpho 2017-07 No Notes: Usama brian ne 08-18 Same as: l 15:17: Dilaudid [place] 00 Sodium 2017-07 No 1,000 mL, Memori a Chloride 08-18 1000 l 0.9% 15:17: ml/hr, [place] (Bolus) IV 00 Infuse Over: 1 hr, Route: IV, 1,000, Drug form: INJ, ONCE, Priority: STAT, Dosing Weight 108.227 kg, Start date: 06/18/18 9:17:00 [employer], Stop date: 06/18/18 9:17:00 [employer] MiraLax Yes Edozie 17 gm, PO, Me moria oral powder 08-05 Brian Daily, # l for 17:17: Akunyili 527 gm, 0 Herm sary reconstitut 00 Refill(s) ion magnesium No Edozie 300 mL, Mem oria citrate 08-05 Brian Route: PO, l 15:00: [place] Drug Form: Her caballero 00 LIQ, Dosing Weight 81.818, kg, ONCE, Start date: 08/05/13 9:00:00, Stop date: 08/05/13 9:00:00([facility] as: Citrate of Magnesia) lithium 300 Yes 0 Memori a mg oral 1-08 Refill(s) l tablet 14:43: Bucky 00 trazodone Yes 0 Memoria 100 mg oral 1-08 Refill(s) l tablet 14:42: Bucky 00 Vital Signs Vital Name Observation Time Observation Value Comments Source Heart Rate 2019-09-04 06:38:00 [facility] Respitory Rate 2019-09-04 06:38:00 Memori al [place] Systolic (mm Hg) 2019-09-04 06:38:00 Usama rial [place] Diastolic (mm Hg) 2019-09-04 06:38:00 Mem orial [place] Systolic (mm Hg) 2019-09-04 03:36:00 Usama rial [place] Diastolic (mm Hg) 2019-09-04 03:36:00 Mem orial [place] Heart Rate 2019-09-04 03:36:00 Memorial [place] Respitory Rate 2019-09-04 03:36:00 Memori al [place] Height 2019-09-04 03:36:00 152.4 cm Memorial Bucky BMI Calculated 2019-09-04 03:36:00 Memori al [place] Weight 2019-09-04 03:36:00 Memorial Bucky Respitory Rate 2018-07-07 13:20:00 Memori al [place] Systolic (mm Hg) 2018-07-07 13:20:00 Usama rial [place] Diastolic (mm Hg) 2018-07-07 13:20:00 Mem orial [place] Systolic (mm Hg) 2018-07-07 12:15:00 Usama rial Bucky Diastolic (mm Hg) 2018-07-07 12:15:00 Mem orial Bucky Respitory Rate 2018-07-07 12:15:00 Memori al [place] Respitory Rate 2018-07-07 11:30:00 Memori al [place] Systolic (mm Hg) 2018-07-07 11:30:00 Usama rial [place] Diastolic (mm Hg) 2018-07-07 11:30:00 Mem orial Bucky Heart Rate 2018-07-07 10:56:00 Memorial [place] Weight 2018-07-07 10:09:00 Memorial [place] BMI Calculated 2018-07-07 10:09:00 Memori al Bucky Height 2018-07-07 10:09:00 152.4 cm Memorial [place] Heart Rate 2018-07-07 10:09:00 Memorial [place] Temperature Oral (F) 2018-06-20 13:00:00 97.6 F Memorial [place] Heart Rate 2018-06-20 13:00:00 Memorial Bucky Respitory Rate 2018-06-20 13:00:00 Memori al [place] Systolic (mm Hg) 2018-06-20 13:00:00 Usama rial Bucky Diastolic (mm Hg) 2018-06-20 13:00:00 Mem orial B[place] Respitory Rate 2018-06-20 09:52:00 Memori al Bucky Heart Rate 2018-06-20 09:52:00 Memorial Bucky Systolic (mm Hg) 2018-06-20 09:52:00 Usama rial [place] Diastolic (mm Hg) 2018-06-20 09:52:00 Mem orial [place] Temperature Oral (F) 2018-06-20 09:52:00 98.1 F Memorial [place] Respitory Rate 2018-06-20 06:37:00 Memori al Bucky Systolic (mm Hg) 2018-06-20 06:37:00 Usama rial [place] Diastolic (mm Hg) 2018-06-20 06:37:00 Mem orial Bucky Heart Rate 2018-06-20 06:37:00 Memorial Bucky Temperature Oral (F) 2018-06-20 06:37:00 98.3 F Memorial Bucky Height 2018-06-18 21:16:00 152.4 cm Memorial [place] BMI Calculated 2018-06-18 21:16:00 Memori al Bucky Weight 2018-06-18 21:16:00 Memorial Bucky BMI Calculated 2018-06-18 20:01:00 Memori al Bucky Weight 2018-06-18 20:01:00 Memorial B[place] Height 2018-06-18 20:01:00 152.4 cm Memorial Bucky Weight 2018-06-18 15:13:00 Memorial B[place] Respitory Rate 2013-08-05 17:40:00 Memori al [place] Systolic (mm Hg) 2013-08-05 17:40:00 Usama rial [place] Diastolic (mm Hg) 2013-08-05 17:40:00 Mem orial Bucky Heart Rate 2013-08-05 17:40:00 Memorial [place] Weight 2013-08-05 14:18:00 Memorial [place] Height 2013-08-05 14:18:00 152.4 cm Memorial Bucky Respitory Rate 2013-08-05 14:18:00 Memori al [place] Heart Rate 2013-08-05 14:18:00 Memorial Bucky Diastolic (mm Hg) 2013-08-05 14:18:00 Mem orial [place] Systolic (mm Hg) 2013-08-05 14:18:00 Usama rial [place] Procedures Procedure Date / Time Performed Performing Clinician Sourc e Cholecystectomy Memorial Bucky Dissection tonsillectomy Memoria l [place] Encounters Start End Encounter Admission Attending Care Care Encounter Source Date/Time Date/Time Type Type Clinicians Facility Department ID 2019-09-03 2019-09-04 Outpatient KENN Glynn [id number] 21:28:05 01:05:00 Julee Smith 03 2019-09-03 2019-09-03 Emergency E MHTW MHTW [id number] MHTW 21:28:00 21:28:00 2018-07-07 2018-07-07 Outpatient KENN Jensen [facility] [id number] 04:08:00 07:36:00 Miguel 02 Nimesh 2018-06-18 2018-06-20 Outpatient KENN Wayne [facility] [id number] 08:57:00 14:33:00 Jackie 01 2013-08-05 2013-08-05 Outpatient REYNALDOIE RICHARD [id number] Memoria 08:12:00 11:42:00 00 l Bucky [facility] Results Test Description Test Time Test Comments Results Result Sourc e Comments IMMUNOLOGY 2019-09-04 Negative Memorial 05:39:00 (09/03/19 11:39 Bucky PM) RAPID 2019-09-04 Negative Memorial 05:39:00 (09/03/19 11:39 Bucky PM) CHEM PANEL 2018-07-07 10:55:00 Test Item Value Reference Range Interpretation Comme nts A/G Ratio (test code = A/G Ratio) 1.1 1 0.7-1.6 [facility] [id number] 10:55:003.8[facility]annCHEM PANEL 2018-07-07 10:55:0029[facility]annCHE[facility] [id number] 10:55:0018[facility]annCHE[facility] OQEPR1653-19-57 10:55:003.6[facility] KLLFP0966-48-91 10:55:000.2[facility]annCHE[facility] FUWEE1258-30-44 10:55:0091[facility] SEDYB0113-02-81 10:55:00<0.1[facility]annCHE[facility] ACWXU4286-59-00 10:55:007.4 [facility] TRCRV7078-74-45 10:55:66141Fnwgozqg HermannELECTROLYTES 2018-07-07 10:55:0013.7[facility]orial PcsbvhnJUUAAUMIMNIK6932-29-99 10:55:13583 Memorial HqqrdtsOVNKZUNXNWEA7329-45-29 10:55:000.61[facility] HermannELECTROLYTES 2018-07-07 10:55:0011[facility] VhghzrxGGTDQDEVEKGI1760-49-34 10:55:0093[facility]orial NqvhmloNQCOJAEIPFNT3667-99-50 10:55:0026[facility] AirwzfqYEKDUJFZZIFX6472-41-51 10:55:72859Orqqmxdu KmkupqvQFGZPVZPSQSB0733-32-11 10:55:003.7[facility] NAKEITJKGZIA3307-20-52 10:55:37552Pwijiktk SfbbbtfGXJEVUNPIVYR4902-65-68 10:55:008.9[facility] KeyshifNIXLXLDAZQGQY3281-50-68 10:55:00Negative *NA*(07/07/18 4:55 AM)[facility] RogvrmeVWGBNKAOJG5400-60-23 10:55:008.1[facility] DbvwgieQLYOCDYUJG1786-40-51 10:55:57051Pltqfpgd SjelinoQYYTJQYFNB5193-57-58 10:55:00 Test Item Value Reference Range Interpretation Comments MCH (test code = MCH) 28.6 pg 27.0-31.0 Memorial LxtkkjuGETYRFSVJT6157-17-00 10:55:0033.4[facility] HermannHEMATOLOGY 2018-07-07 10:55:0085.6[facility] OhybksqITRWYAHDBF9878-34-64 10:55:0039.9[facility] IamilerJMYSBBAZWV2239-82-25 10:55:0013.7[facility]orial JgqleqwFESZWIAYWE4655-33-67 10:55:004.66[facility] PcrkonlQJSBKTZKWC5983-24-96 10:55:0013.3[facility] [place] DAFGSUSPST5902-60-37 10:55:0013.5[facility] EjpzhhyUHHPTYGGXC3058-46-57 10:55:00 0.2[facility]orial HrjulixDCJWWWLMMU4561-57-51 10:55:0061.9[facility] HermannHEMATOLOGY 2018-07-07 10:55:008.4[facility] UgotnvvMFKMVFGLIK3970-81-63 10:55:000.3[facility]orial PfxyksgQHUSPLUSHZ0879-76-83 10:55:004.2[facility] BhnezuwPCZAMNALUD4891-67-88 10:55:000.7[facility]orial GmwndqpLKPNFUNFRU4287-67-93 10:55:0031.0[facility] [place] QDRNHMJXLL1506-28-54 10:55:005.4[facility]orial WsupgdkDZTRXSBRAU2190-14-26 10:55:001.4 [facility] AND WQSMM3100-64-50 10:55:002[facility] USMPV7354-83-07 10:55:00<1[facility] ZUWBX6550-61-33 10:55:00 Test Item Value Reference Range Interpretation Comments UA Spec Grav (test code = UA Spec 1.014 1 Grav) [facility] [id number] 10:55:00Clear (07/07/18 4:55 AM) [facility] [id number] 10:55:00Yellow *NA*(07/07/18 4:55 AM) [facility] [id number] 10:55:00 Test Item Value Reference Range Interpretation Comments UA pH (test code = UA pH) 5.5 1 5.0-8.0 [facility] [id number] 10:55:00Negative (07/07/18 4:55 AM) [facility] [id number] 10:55:00Negative (07/07/18 4:55 AM) [facility] GTKCL1225-66-74 10:55:00Negative (07/07/18 4:55 AM) [facility] QMCFY5946-29-77 10:55:00Negative *NA*(07/07/18 4:55 AM)[facility] YbuzogxDKCNZOZWQN2755-65-97 09:40:008.0[facility] HermannHEMATOLOGY 2018-06-20 09:40:47150Wgnljboo ZkcgvhpKSVXLJIFGW5684-31-73 09:40:00 Test Item Value Reference Range Interpretation Comments MCH (test code = MCH) 29.2 pg 27.0-31.0 Memorial XjdjmzfMAEMMHPVDM2739-13-36 09:40:0086.7[facility] HermannHEMATOLOGY 2018-06-20 09:40:0011.6[facility] PjaaqggQXHAZBRIRU2077-89-10 09:40:0034.4[facility] VjekkiwZPESUOXTEJ4072-48-79 09:40:0010.3[facility] ZzgrmalWXARUNSQQF3969-74-84 09:40:003.97[facility] UzarotpRRQDBQMWHV7324-05-00 09:40:0014.3[facility] FODWROMMZH2080-13-28 09:40:0033.7[facility] HermannCHEM TQVHI1376-31-94 16:37:00 130[facility] HermannCHEM SWOHE8369-65-18 16:37:003.1[facility] HermannCHEM PANEL 2018-06-19 16:37:00 Test Item Value Reference Range Interpretation Comments A/G Ratio (test code = A/G Ratio) 1.0 1 0.7-1.6 [facility]CHE[facility] [id number] 16:37:0021[facility] HermannCHEM PANEL 2018-06-19 16:37:0011.8[facility]annCHEM XVJJH3244-93-52 16:37:00 Test Item Value Reference Range Interpretation Comments B/C Ratio (test code = B/C Ratio) 13 1 6-25 [facility]annCHE[facility] FJNIW4750-50-96 16:37:0069[facility] HermannCHEM PANEL 2018-06-19 16:37:000.3[facility]annCHEM RYMNS4293-97-90 16:37:0025[facility]annCHEM RGNZI1183-73-72 16:37:008.4[facility]annCHEM TGFIU8878-62-68 16:37:0024[facility] HermannCHEM GQAQJ3967-98-90 16:37:006.1[facility]annCHEM VBTJC7316-14-78 16:37:003.0[facility]annCHEM WKGVX1050-52-35 16:37:000.61 [facility]annCHE[facility] TZNMP4800-29-84 16:37:01021Poetzinq HermannCHEM PANEL 2018-06-19 16:37:32110Injjcebr HermannCHEM SKZXJ6549-32-70 16:37:003.8[facility] HermannCHEM XKFSZ9020-74-80 16:37:008[facility] HermannCHEM KMPWQ6505-64-08 16:37:17343Obtkdjzh CpqhkvaPBFCTTKBIL4817-52-12 16:37:0012.6[facility] [place] QIPBEKCKNG4695-44-08 16:37:0012.2[facility] RbjueuqXIASGZSCKO8627-33-64 16:37:00 4.31Memorial ZdourgpQEQQGXJQQJ2816-79-61 16:37:0037.1[facility] HermannHEMATOLOGY 2018-06-19 16:37:00 Test Item Value Reference Range Interpretation Comments MCH (test code = MCH) 28.4 pg 27.0-31.0 Memorial IjogadqZYYIJWUTIG2468-49-58 16:37:0086.0[facility] HermannHEMATOLOGY 2018-06-19 16:37:36948Pzbvjajf XaiwoqhQHNEWRTUXP7039-12-61 16:37:0033.0[facility] OecvsxmCTXOAOSXJE4941-67-00 16:37:0014.4[facility] EkkdhahYHIAEFPSAJ3959-50-58 16:37:007.9[facility] HermannCHEM NKQWH4599-38-43 15:23:80888Owkiypqs HermannCHEM CONCY0169-14-65 15:23:00<0.1[facility] HermannCHEM ECZSW2982-83-29 15:23:000.2 [facility]annCHE[facility] UFILR4435-32-94 15:23:0083[facility] HermannCHEM PANEL 2018-06-18 15:23:003.5[facility] HermannCHEM QWNJP7462-21-63 15:23:0024[facility] HermannCHEM EKNBT2745-13-78 15:23:003.7[facility] HermannCHEM ASIED4969-32-16 15:23:0015[facility] HermannCHEM YEBFL4086-60-99 15:23:00 Test Item Value Reference Range Interpretation Comments A/G Ratio (test code = A/G Ratio) 0.9 1 0.7-1.6 [facility]annCHEM [id number] 15:23:007.2[facility] HermannELECTROLYTES 2018-06-18 15:23:0012.8[facility] VtnpdosWWQOWDMNEKIF3381-35-14 15:23:02011 Memorial XffvxleTMMDQWVJTONI3692-24-40 15:23:009.0[facility] HermannELECTROLYTES 2018-06-18 15:23:0021[facility] XtmkgfvPORFSJDQALFU7652-00-12 15:23:94621Umtnbwqx WdsysrjQVTQRANSIDTF0736-38-73 15:23:003.8[facility] BbibiekVNGNCQTOUAWH4105-78-52 15:23:80841Ghrnayai OndoiwhZMVPKASZWXBS8990-93-14 15:23:000.65[facility] DELBGRQNTRWT4375-91-08 15:23:0011[facility] RylhopsZAFSTXQYUHRJ4053-34-83 15:23:00 99[facility] IbmmjxyYQJTUXUKKPRED5683-89-40 15:23:00Negative *NA*(06/18/18 9:23 AM)[facility] DegouxySUVAFGZOGC0729-68-96 15:23:000.1[facility]annHEMATOLOGY 2018-06-18 15:23:000.2[facility] JtgqtzhNSJVKYUTKO7872-12-30 15:23:000.8[facility] DnxwfeqUNFENRSTID0778-82-62 15:23:000.6[facility] BbsrgudRMVLTCNETH7937-91-29 15:23:003.0[facility] GmrgjexIZQFOLROGL2831-49-14 15:23:006.3[facility] [place] QDOAFWOKWO5838-98-59 15:23:007.4[facility] IrrqyidYBQDMVSQKS7399-24-59 15:23:002.2 [facility] HuqrgdyEKDZLUBFQL8520-26-63 15:23:0060.8[facility]annHEMATOLOGY 2018-06-18 15:23:0029.0[facility] TreqacrBGJNXYPELJ8141-37-74 15:23:0013.8[facility] WrtudpdOEFCLABNDC8398-84-92 15:23:004.84[facility] EjdyickELYVUUTEOV7915-53-62 15:23:0010.4[facility] QxuswvpIIDMGKHTAI2097-65-53 15:23:0041.8[facility] FVJXMVKAZL5858-51-21 15:23:008.1[facility] AefekqpPXMPHXRDOX9509-25-33 15:23:84595 [facility] CrfjghuRDMCSHBTTS1230-76-47 15:23:0014.1[facility]annHEMATOLOGY 2018-06-18 15:23:0033.1[facility] NqkfqpzSJHYZEBDRY2513-38-95 15:23:00 Test Item Value Reference Range Interpretation Comments MCH (test code = MCH) 28.5 pg 27.0-31.0 [facility] YxfocfgJGNWCCPDQK5359-79-78 15:23:0086.3[facility]annURINE [facility] STOOL 2018-06-18 15:23:00<1[facility] KGDBP7289-51-55 15:23:00 Negative (06/18/18 9:23 AM)[facility] SYMAS2320-93-84 15:23:00 Negative (06/18/18 9:23 AM)[facility] CBGOG5726-11-10 15:23:00 Negative (06/18/18 9:23 AM)[facility] KQESZ2270-81-91 15:23:00 Negative *NA*(06/18/18 9:23 AM)[facility] ESJYU9379-76-59 15:23:00Light Yellow *NA*(06/18/18 9:23 AM)[facility] STOOL 2018-06-18 15:23:00Clear (06/18/18 9:23 AM)[facility] STOOL 2018-06-18 15:23:001[facility] UUYMY7220-35-95 15:23:00 Test Item Value Reference Range Interpretation Comments UA Spec Grav (test code = UA Spec 1.007 1 Grav) [facility] UJUWL8623-06-04 15:23:00 Test Item Value Reference Range Interpretation Comments UA pH (test code = UA pH) 5.5 1 5.0-8.0 [facility] YrokjoqOCNHPOCEJ9966-39-66 15:35:00Negative (08/05/2013 09:35:00) [facility]
[2020-03-09 18:28] LABS: Basophils % 0.5 % (0-1.3); Hematocrit 40.4 % (36.0-45.0); MPV 8.3 fL (7.6-11.3); RBC Red Blood Cell Count 4.65 M/uL (3.86-4.86)
[2020-03-09] MEDS ORDERED: DICYCLOMINE HCL 10 MG CAP ONE (18:49)
[2020-03-09 19:03] LABS: ALT/SGPT 25 U/L (12-78); AST/SGOT 19 U/L (15-37); Albumin 3.7 g/dL (3.4-5.0); Alkaline Phosphatase 68 U/L (45-117); BUN Blood Urea Nitrogen 8 mg/dL (7-18); Bicarbonate 26 mmol/L (21-32); Bilirubin Direct < 0.1 mg/dL (0-0.2); Bilirubin Total 0.2 mg/dL (0.2-1.0); Glucose Level 77 mg/dL (74-106); Lipase 81 U/L (73-393); Potassium 3.6 mmol/L (3.5-5.1); Protein, Total 7.1 g/dL (6.4-8.2); Sodium Level 142 mmol/L (136-145)
--- NOTE | 2020-03-09 19:50 | RAD REPORT ---
EXAM DESCRIPTION: CT - Abdomen Pelvis W Contrast - 03/09/2020 7:33 pm CLINICAL HISTORY: Abdominal pain COMPARISON: none. TECHNIQUE: Computed axial tomography of the abdomen pelvis was obtained. 100 cc Isovue-300 was admin istered intravenously. Oral contrast was not requested which limits evaluation of bowel. All CT scans are performed using dose optimization technique as appropriate and may include automated exposure control or mA/KV adjustment according to patient size. FINDINGS: The liver, spleen, pancreas, adrenal and kidneys appear unremarkable. There is no evidence of diverticulitis. Normal appendix. No bowel wall thickening. No adnexal mass. Cholecystectomy IMPRESSION: No acute abnormality is displayed.
[2020-03-09] MEDS ORDERED: ONDANSETRON 4 MG/2 ML VIAL ONE (19:54)
[2020-03-09] MEDS ORDERED: PROMETHAZINE INJ 25 MG/ML AMP ONE (19:58)
--- NOTE | 2020-03-09 20:09 | EDPHYS ---
Physician Documentation [facility] Name: Deven Alfaro Age: 24 yrs Sex: Female : 1995 Arrival Date: 03/09/2020 Time: 17:15 Bed 17 Private MD: ED Physician Bhupendra Rapp HPI: 03/09 18:00 This 24 yrs old Female presents to ER via Ambulatory with complaints of cp Diarrhea, Nausea. 18:00 The patient presents to the emergency department with nausea, that is moderate, cp vomiting, that is intermittent, diarrhea, that is intermittent, abdominal pain, of the abdomen diffusely. Onset: The symptoms/episode began/occurred 1 week(s) ago. Possible causes: unknown. Associated signs and symptoms: Pertinent positives: blood in stool, Pertinent negatives: constipation, dysuria, fever. Severity of symptoms: in the emergency department the symptoms are unchanged despite home interventions. 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 - Social history:: Smoking status: Patient reports the use of cigarette tobacco products, smokes one-half pack cigarettes per day. ROS: 18:05 Constitutional: Negative for body aches, chills, fever, poor PO intake, weight loss. cp 18:05 Eyes: Negative for injury, pain, redness, and discharge. cp 18:05 ENT: Negative for ear pain, sore throat, difficulty swallowing, difficulty handling secretions. 18:05 Cardiovascular: Negative for chest pain. 18:05 Respiratory: Negative for cough, shortness of breath, wheezing. 18:05 Abdomen/GI: Positive for abdominal pain, nausea, vomiting, and diarrhea, rectal bleeding, Negative for constipation, black/tarry stool. 18:05 Back: Negative for radiated pain. 18:05 : Negative for urinary symptoms. 18:05 Neuro: Negative for altered mental status, headache, weakness. 18:05 All other systems are negative. Exam: 18:10 Constitutional: The patient appears in no acute distress, alert, awake, non-toxic, well cp developed, well nourished, obese. 18:10 Head/Face: Normocephalic, atraumatic. cp 18:10 Eyes: Periorbital structures: appear normal, Conjunctiva: normal, no exudate, no injection, Sclera: no appreciated abnormality, Lids and lashes: appear normal, bilaterally. 18:10 ENT: External ear(s): are unremarkable, Nose: is normal, Mouth: Lips: moist, Oral mucosa: moist, Posterior pharynx: Airway: no evidence of obstruction, patent. 18:10 Chest/axilla: Inspection: normal, Palpation: is normal, no crepitus, no tenderness. 18:10 Cardiovascular: Rate: normal, Rhythm: regular. 18:10 Respiratory: the patient does not display signs of respiratory distress, Respirations: normal, no use of accessory muscles, no retractions, labored breathing, is not present, Breath sounds: are clear throughout, no decreased breath sounds, no stridor, no wheezing. 18:10 Abdomen/GI: Inspection: abdomen appears normal, Bowel sounds: active, all quadrants, Palpation: soft, in all quadrants, mild abdominal tenderness, in all quadrants, rebound tenderness, is not appreciated, voluntary guarding, is not appreciated, involuntary guarding, is not appreciated. 18:10 Back: pain, is absent, ROM is normal. 19:55 : Rectal exam: is normal, no gross blood is appreciated, stool guaiac is negative, no cp hemorrhoids. Vital Signs: 17:34 BP 122 / 81; Pulse 84; Resp 18; Temp 98.6(O); Pulse Ox 100% on R/A; Weight 104.33 kg; ks7 Height 5 ft. (152.40 cm); Pain 6/10; 18:30 BP 102 / 69; Pulse 73; Resp 17; Pulse Ox 100% ; bp 19:12 BP 112 / 57; Pulse 78; Resp 18; Temp 98.5; Pulse Ox 100% on R/A; mg2 20:20 BP 115 / 78; Pulse 80; Resp 18; Temp 98.5(O); mg2 17:34 Body Mass Index 44.92 (104.33 kg, 152.40 cm) ks7 MDM: 17:45 Patient medically screened. cp 18:00 Differential diagnosis: Nonspecific abd pain, gastritis, diverticulitis, colitis. cp 20:08 Data reviewed: vital signs, nurses notes, lab test result(s), radiologic studies, CT cp scan. 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 Special discussion: Based on the patient's Hx, exam, and Dx evaluation, there is no indication for emergent surgery or inpatient Tx. It is understood by the patient/guardian that if the Sx's persist or worsen they need to return immediately for re-evaluation. 03/09 17:51 Order name: Basic Metabolic Panel; Complete Time: 19:27 cp 08/ 19:27 Interpretation: Normal except: CL 109. cp / 17:51 Order name: CBC with Diff; Complete Time: 19:27 cp 03/09 19:27 Interpretation: Reviewed. cp 03/09 17:51 Order name: Hepatic Function; Complete Time: 19:27 cp 03/09 17:51 Order name: Lipase; Complete Time: 19:27 cp 12 18:47 Order name: Urine Dipstick--Ancillary (enter results) bd 03/09 18:47 Order name: Urine --Ancillary (enter results) bd 03/09 17:51 Order name: IV Saline Lock; Complete Time: 18:31 cp 08/ 17:51 Order name: Labs collected and sent; Complete Time: 18:31 cp 03/09 17:51 Order name: Urine Dipstick-Ancillary (obtain specimen); Complete Time: 18:55 cp 03/09 17:51 Order name: Urine Test (obtain specimen); Complete Time: 18:55 cp 03/09 17:51 Order name: CT Abd/Pelvis - IV Contrast Only; Complete Time: 19:58 cp 03/09 19:58 Interpretation: Report reviewed. cp Administered Medications: 18:10 Drug: Bentyl 20 mg Route: PO; bp 19:50 Follow up: Response: No adverse reaction mg2 19:51 Drug: Phenergan 12.5 mg Route: IVP; Site: right antecubital; mg2 20:20 Follow up: BP 115 / 78; Pulse 80 bpm; Resp 18 bpm; Temp 98.5 Oral mg2 Point of Care Testing: Guaiac: 20:13 Stool Guaiac: Negative; Stool Hemoccult Control: Pass; mg2 Disposition: 03/09/20 20:09 Discharged to Home. Impression: Diarrhea, unspecified, Nausea. - Condition is Stable. - Discharge Instructions: Diarrhea, Adult, Nausea, Adult. - Prescriptions for Bentyl 20 mg Oral Tablet - take 1 tablet by ORAL route every 6 hours As needed; 30 tablet. promethazine 25 mg Oral Tablet - take 1 tablet by ORAL route every 6 hours As needed; 20 tablet. - Medication Reconciliation Form, Thank You Letter, Antibiotic Education, Prescription Opioid Use, Work release form form. - Follow up: Giuseppe Mason MD; When: 1 - 2 days; Reason: Recheck today's complaints. - Problem is new. - Symptoms have improved. Addendum: 03/14/2020 08:19 Co-signature as Attending Physician, Bhupendra Rapp MD I agree with the assessment and k dr plan of care. Signatures: Dispatcher [employer] EDMS Bhupendra Rapp MD MD kdr Clive Garcia PA PA cp Angel Villarreal RN RN bp Jose Elias Morris RN RN mg2 Olivia Turner RN RN ks7 Corrections: (The following items were deleted from the chart) 03/09 20:24 20:09 03/09/2020 20:09 Discharged to Home. Impression: Diarrhea, unspecified; Nausea. mg2 Condition is Stable. Forms are Medication Reconciliation Form, Thank You Letter, Antibiotic Education, Prescription Opioid Use. Follow up: Giuseppe Mason; When: 1 - 2 days; Reason: Recheck today's complaints. Problem is new. Symptoms have improved. cp
--- NOTE | 2020-03-09 20:09 | ER ---
Nurse's Notes [facility] Name: Deven Alfaro Age: 24 yrs Sex: Female : 1995 Arrival Date: 03/09/2020 Time: 17:15 Bed 17 Private MD: Diagnosis: Diarrhea, unspecified;Nausea Presentation: 03/09 17:34 Chief complaint: Patient states: Diffuse abd pain, nausea, diarrhea x 1 week. Pt denies ks7 fever. Pt also reports dark red blood in stool. Coronavirus screen: Client denies travel out of the [place] in the last 14 days. At this time, the client does not indicate any symptoms associated with coronavirus-19. The client denies any previous COVID testing. Ebola Screen: Patient negative for fever greater than or equal to 101.5 degrees Fahrenheit, and additional compatible Ebola Virus Disease symptoms Patient denies exposure to infectious person. Patient denies travel to an Ebola-affected area in the 21 days before illness onset. Initial Sepsis Screen: Does the patient meet any 2 criteria? No. Patient's initial sepsis screen is negative. Does the patient have a suspected source of infection? No. Patient's initial sepsis screen is negative. Risk Assessment: Do you want to hurt yourself or someone else? Patient reports no desire to harm self or others. Onset of symptoms was March 02, 2020. 17:34 Method Of Arrival: Ambulatory ks7 17:34 Acuity: SAMI 3 ks7 Triage Assessment: 17:37 General: Appears in no apparent distress. uncomfortable, Behavior is calm, cooperative. ks7 Pain: Complains of pain in abdomen Pain currently is 6 out of 10 on a pain scale. Quality of pain is described as crampy, sharp, Pain began 2-3 days ago. Is continuous. GI: Reports diarrhea, nausea, dark red blood in stool last night. 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 - Social history:: Smoking status: Patient reports the use of cigarette tobacco products, smokes one-half pack cigarettes per day. Screenin:31 Abuse screen: Denies threats or abuse. Denies injuries from another. Nutritional bp screening: No deficits noted. Tuberculosis screening: No symptoms or risk factors identified. Fall Risk None identified. Assessment: 17:45 General: SEE TRIAGE NOTE. bp 18:30 Reassessment: CT PENDING, NO S/S ACUTE DISTRESS AT THIS TIME. bp 19:15 General: Appears in no apparent distress. comfortable, Behavior is calm, cooperative. mg2 Pain: Denies pain. Neuro: Level of Consciousness is awake, alert, obeys commands, Oriented to person, place, time, situation. Cardiovascular: Capillary refill < 3 seconds Patient's skin is warm and dry. Respiratory: Airway is patent Respiratory effort is even, unlabored, Respiratory pattern is regular, symmetrical. GI: Reports diarrhea. : No signs and/or symptoms were reported regarding the genitourinary system. EENT: No signs and/or symptoms were reported regarding the EENT system. Derm: Skin is intact, is healthy with good turgor, Skin is pink, warm \T\ dry. normal. Musculoskeletal: Circulation, motion, and sensation intact. Capillary refill < 3 seconds. 19:32 Reassessment: sent to ct. mg2 20:23 Reassessment: Patient states feeling better. Patient states symptoms have improved. mg2 Vital Signs: 17:34 BP 122 / 81; Pulse 84; Resp 18; Temp 98.6(O); Pulse Ox 100% on R/A; Weight 104.33 kg; ks7 Height 5 ft. (152.40 cm); Pain 6/10; 18:30 BP 102 / 69; Pulse 73; Resp 17; Pulse Ox 100% ; bp 19:12 BP 112 / 57; Pulse 78; Resp 18; Temp 98.5; Pulse Ox 100% on R/A; mg2 20:20 BP 115 / 78; Pulse 80; Resp 18; Temp 98.5(O); mg2 17:34 Body Mass Index 44.92 (104.33 kg, 152.40 cm) ks7 ED Course: 17:15 Patient arrived in ED. ag5 17:37 Triage completed. ks7 17:37 Arm band placed on right wrist. ks7 17:41 Clive Garcia PA is PHCP. cp 17:41 Bhupendra Rapp MD is Attending Physician. cp 17:41 Angel Villarreal, RN is Primary Nurse. bp 17:54 Radiology exam delayed due to test not completed at this time. IV insertion vm2 attempt and/or patient not having appropriate IV at this time. 18:30 Inserted saline lock: 18 gauge in right antecubital area, using aseptic technique. bp Blood collected. 18:31 Patient has correct armband on for positive identification. Bed in low position. Call bp light in reach. Side rails up X2. 19:33 CT Abd/Pelvis - IV Contrast Only In Process Unspecified. EDMS 20:08 Giuseppe Mason MD is Referral Physician. cp 20:23 No provider procedures requiring assistance completed. IV discontinued, intact, mg2 bleeding controlled, No redness/swelling at site. Pressure dressing applied. Administered Medications: 18:10 Drug: Bentyl 20 mg Route: PO; bp 19:50 Follow up: Response: No adverse reaction mg2 19:51 Drug: Phenergan 12.5 mg Route: IVP; Site: right antecubital; mg2 20:20 Follow up: BP 115 / 78; Pulse 80 bpm; Resp 18 bpm; Temp 98.5 Oral mg2 Point of Care Testing: Guaiac: 20:13 Stool Guaiac: Negative; Stool Hemoccult Control: Pass; mg2 Outcome: 20:09 Discharge ordered by . cp 20:23 Discharged to home ambulatory. mg2 20:23 Condition: stable 20:23 Discharge instructions given to patient, Instructed on discharge instructions, follow up and referral plans. medication usage, Demonstrated understanding of instructions, follow-up care, medications, Prescriptions given X 2. 20:24 Patient left the ED. mg2 Signatures: Dispatcher [employer] EDNE Clive Garcia PA PA cp Vidhya Mc vm2 Angel Villarreal, RN RN bp Jose Elias Morris RN RN mg2 Koby Fernández Olivia Ybarra RN RN ks7
[2020-03-09 20:28] VITALS: O2SAT 100
[2020-03-09 20:30] VITALS: TEMP 98.5
[2020-03-09 20:31] VITALS: BP 115/78
[2020-03-09 21:13] LABS: Urine Blood TRACE (NEG); Urine Glucose NEGATIVE (NEG); Urine Protein NEGATIVE (NEG); Urine Specific Gravity 1.025 (1.005-1.030)
== END 2020-03-09 20:24 | disposition home or self-care (01) ==
LOC: ER 17:13
DX: R11.2 Nausea with vomiting, unspecified (principal); R19.7 Diarrhea, unspecified; Z88.6 Allergy status to analgesic agent; F17.210 Nicotine dependence, cigarettes, uncomplicated
CPT/HCPCS: 85025; 80048; 36415; 81025; 80076; 81003; 83690; 74177; 96374; 99284; Q9967; J2550; J2405

== ENCOUNTER 2020-08-02 11:25 | Emergency (ER) | payer BC, OTHER, SELFPAY ==
--- OUTSIDE RECORDS SUMMARY | 2020-08-02 11:29 | XMS REPORT | Continuity of Care Document ---
:1995 Author Organization [facility] t Address [address] [place] [address] Care Team Providers Name Role Phone Sarah Glynn Attending Clinician Nimesh Jensen Jr Attending Clinician Rosana Attending Clinician Rosana Admitting Clinician Problems Condition Condition Condition Status Onset Resolution Last Treating Co mments Source Name Details Category Date Date Treatment Clinician Date THROAT Diagnosis Active 2019-09-07 Mem oria ISSUES - 13:33:00 l THROAT 00:00: [place] ISSUES 00 Active 09/03/2019 [facility] ABD PAIN Diagnosis Active 2017-072018-07-07 M emoria - 05:31:00 l ABD PAIN 00:00: Michael n 00 Active 07/07/2018 [facility] SYMPTOMATI Diagnosis Active 2017-072018-06-20 Memoria C 08-18 16:07:00 l CHOLEITHIA 00:00: Michael n SIS SYMPTOMATI 00 C CHOLEITHIA SIS Active 06/18/2018 [facility] GALLBLADDE Diagnosis Active 2017-072018-06-18 Memoria R ISSUES 08-18 11:14:00 l 00:00: Bucky GALLBLADDE 00 R ISSUES Active 06/18/2018 [facility] Nausea Problem 2019-01-24 Memor ia with 11:13:49 l vomiting, Nausea Alka nn unspecifie with d vomiting, unspecifie d 01/24/2019 [facility] Acquired Problem 2019-01-24 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:13:49 l other Acquired Michael n specified absence of parts of other digestive specified tract parts of digestive tract 01/24/2019 [facility] Nicotine Problem 2019-01-24 Mem oria dependence 11:13:49 l , Nicotine Michael n cigarettes dependence , , uncomplica cigarettes kecia , uncomplica kecia 01/24/2019 [facility] Obesity, Problem 2019-01-07 Mem oria unspecifie 12:15:48 l d Obesity, Michael n unspecifie d 01/07/2019 [facility] Bipolar Problem 2019-01-07 Usaam brian disorder, 12:15:48 l unspecifie Bipolar Her caballero d disorder, unspecifie d 01/07/2019 [facility] Body mass Problem 2019-01-07 Me moria index 12:15:48 l (BMI) Body [place] 45.0-49.9, mass index adult (BMI) 45.0-49.9, adult 01/07/2019 [facility] Bipolar Problem Active 2013-08-07 Usama brian (qualifier 22:53:36 l value) Bipolar Bucky (qualifier value) Active Problem 08/07/2013 [facility] CALCULUS Diagnosis Active 2018-06-20 M emoria OF 16:07:00 l GALLBLADDE CALCULUS He rmann R W/O OF CHOLECYSTI GALLBLADDE TI R W/O CHOLECYSTI TI Active [facility] Acute Problem 2019-2019-09-06 2019-09-06 M emoria pharyngiti 207 22:02:08 22:02:08 l s, Acute 18:00: Bucky unspecifie pharyngiti 00 d s, unspecifie d 09/04/2019 09/06/2019 [facility] Right Problem 2017-072019-01-24 2019-01-24 M emoria upper 2-18 11:13:49 11:13:49 l quadrant Right 04:40: Bucky pain upper 22 quadrant pain 07/15/2018 01/24/2019 [facility] Unspecifie Problem 2017-072019-01-24 2019-01-24 Memoria d 2-10 11:13:49 11:13:49 l abdominal 06:00: Bucky pain Unspecifie 00 d abdominal pain 07/07/2018 01/24/2019 [facility] Calculus Problem 2017-072019-01-07 2019-01-07 Memoria of 08-25 12:15:48 12:15:48 l gallbladde Calculus 04:19: He rmann r with of 08 acute gallbladde cholecysti r with tis acute without cholecysti obstructio tis n without obstructio n 06/25/2018 01/07/2019 [facility] Allergies, Adverse Reactions, Alerts Allergy Allergy Status Severity Reaction(s) Onset Inactive Treating Comm ents Source Name Type Date Date Clinician morphine morphine Active Memori a l [place] Active Memoria l [place] LaMICtal LaMICtal Active Memori a l [place] Social History Social Habit Start Date Stop Date Quantity Comments Source Social History 2018-06-18 2018-06-18 [facility] jesika 21:14:02 21:14:02 Medications Ordered Filled Start Stop [...] tab, PO, l Tablet 06:46: Q8H, PRN [place] [Motrin] 00 Pain, Take with food, # 30 tab, 0 Refill(s) Dexamethaso No = 14 kg to Memoria ne 2-07 < 17 kg, l 06:45: Asthma, [place] 00 Start date: 09/04/19 0:45:00 GRAINING MACHINE OPERATOR, Stop date: 09/04/19 0:45:00 GRAINING MACHINE OPERATOR, Pediatric Dosing Tylenol No Notes: Max Usama brian 2-07 acetaminop l 03:42: hen 4000 [place] 00 mg/day (4 gm/day). (Same as: Tylenol Extra Strength) Magic 0 No Notes: Memoria Mouthwash 2-07 Magic l (Benadryl/L 03:41: mouth wash [place] idocaine/Ma 00 contains:B alox/) enadryl/Li 1:1:1 docaine/Ma alox/) 1:1:1; total volume 5 ml Morphine 2017-07 No 4 mg, Memoria 2-10 Route: l 10:34: IVP, ONCE, Bucky 00 Dosing Weight 105.085, kg, Priority: STAT, Start date: 07/07/18 4:34:00 GRAINING MACHINE OPERATOR, Stop date: 07/07/18 4:34:00 GRAINING MACHINE OPERATOR Ketorolac 2017-07 No 15 mg, Memori a 2-10 Route: l 10:33: IVP, Drug Bucky 00 form: INJ, ONCE, Dosing Weight 105.085, kg, Priority: STAT, Start date: 07/07/18 4:33:00 GRAINING MACHINE OPERATOR, Stop date: 07/07/18 4:33:00 GRAINING MACHINE OPERATOR remove 2017-07 No Notes: Memoria patch 08-20 WASTE: F/P l 21:00: - P Waste [place] 00 Black; E - P Waste Black Habitrol 2017-07 No Notes: Memoria 08-19 (Same as: l 22:00: Habitrol) [place] 00 "Remove old patch before applicatio n of new patch" WASTE: F/P - P Waste Black; E - P Waste Black Acetaminoph 2017-07 No See Memori a en 300 MG / 08-19 Instructio l Codeine 19:33: ns, PRN [place] Phosphate 00 for pain, 30 MG Oral [...] Memoria 08-19 (Same as: l 07:00: Habitrol) [place] 00 "Remove old patch before applicatio n [...] 01:26: INJ, ONCE, Stop date: 06/18/18 19:26:00 GRAINING MACHINE OPERATOR ketOROLAC 2017-07 No IV, ONCE Usama brian (ANES) 08-19 l 01:26: neostigmine 2017-07 No Route: IV, Memoria (ANES) 08-19 Drug form: l 01:26: INJ, ONCE, Stop date: 06/18/18 19:26:00 GRAINING MACHINE OPERATOR glycopyrrol 2017-07 No Route: IV, Memoria ate (ANES) 08-19 Drug form: l 01:26: INJ, ONCE, Stop date: 06/18/18 19:26:00 GRAINING MACHINE OPERATOR dexamethaso 2017-07 No Route: IV, Memoria ne (ANES) 08-19 Drug form: l 01:20: INJ, ONCE, Stop date: 06/18/18 19:20:00 GRAINING MACHINE OPERATOR ondansetron 2017-07 No Route: IV, Memoria (ANES) 08-19 Drug form: l 01:05: INJ, ONCE, Stop date: 06/18/18 19:05:00 GRAINING MACHINE OPERATOR fentaNYL 2017-07 No Route: IV, Mem oria (ANES) 08-19 Drug form: l 01:05: INJ, ONCE, Stop date: 06/18/18 19:05:00 GRAINING MACHINE OPERATOR lidocaine 2017-07 No Route: IV, Me moria (ANES) 08-19 Drug form: l 01:00: INJ, ONCE, Stop date: 06/18/18 19:00:00 GRAINING MACHINE OPERATOR famotidine 2017-07 No Route: IV, M emoria (ANES) 08-19 Drug form: l 01:00: INJ, ONCE, Stop date: 06/18/18 19:00:00 GRAINING MACHINE OPERATOR midazolam 2017-07 No Route: IV, Me moria (ANES) 08-19 Drug form: l 01:00: SOLN, 00 ONCE, Stop date: 06/18/18 19:00:00 GRAINING MACHINE OPERATOR rocuronium 2017-07 No Route: IV, M emoria (ANES) 08-19 Drug form: l 01:00: INJ, ONCE, Bucky 00 Stop date: 06/18/18 19:00:00 GRAINING MACHINE OPERATOR propofol 2017-07 No Route: IV, Mem oria (ANES) 08-19 Drug form: l 01:00: INJ, ONCE, [place] Stop date: 06/18/18 19:00:00 GRAINING MACHINE OPERATOR fentaNYL 2017-07 No Route: IV, Mem oria (ANES) 08-19 Drug form: l 01:00: INJ, ONCE, Bucky Stop date: 06/18/18 19:00:00 GRAINING MACHINE OPERATOR Zosyn 2017-07 No Notes: Memoria 08-19 (Same as: l 01:00: Zosyn) Dosing based on Piperacill in component MEDICATION WASTE Product Size: 3375 mg Product Wasted: ___ mg piperacilli 2017-07 No Route: IV, Memoria n-tazobacta 08-19 Drug form: l m (ANES) 00:55: INJ, ONCE, Her caballero Stop date: 06/18/18 18:55:00 GRAINING MACHINE OPERATOR Ondansetron 2017-07 No Notes: Usama brian 08-19 (Same as: l 00:32: Zofran) MEDICATION WASTE Product Size: 4 mg Product Wasted: ___ mg Fentanyl 2017-07 No Notes: Memoria 08-19 (Same as: l 00:32: Sublimaze) Preservat tin free. Morphine 2017-07 No Notes: Memoria 08-19 (Same l 00:32: as:MORPhin e Sulfate) Naloxone 2017-07 No Notes: Memoria 08-19 Same as l 00:32: Narcan [place] 00 Flumazenil 2017-07 No Notes: Memor ia 08-19 (Same as: l 00:32: Romazicon) Lactated 2017-07 No Route: IV, Mem oria Ringers 08-19 Total l Injection 00:11: Volume: Alka nn IV (ANES) 00 1,000, 1000 mL Start date: 06/18/18 18:11:00 GRAINING MACHINE OPERATOR, Stop date: 06/18/18 19:11:00 GRAINING MACHINE OPERATOR Lactated 2017-07 No 1,000 mL, Usama brian Ringers IV 08-18 Rate: 40 l 1,000 mL 23:02: ml/hr, Infuse over: 25 hr, Route: IV, Dosing Weight 106.136 kg, Total Volume: 1,000, Start date: 06/18/18 17:02:00 GRAINING MACHINE OPERATOR, Duration: 30 day, Stop date: 07/18/18 17:01:00 GRAINING MACHINE OPERATOR, 2.17, m2 Fentanyl 2017-07 No Notes: Memoria [...] e -21 25 mL, l 19:52: Route: [place] 00 IVPB, Drug form: SOLN, ONCE, Dosing Weight 108.227, kg, PRN Nausea & Vomiting, Start date: 06/18/18 13:52:00 GRAINING MACHINE OPERATOR Dexamethaso 2017-07 No Notes: Usama brian ne - Concentrat l 19:52: ion: Bucky 00 4mg/ml Ondansetron 2017-07 No Notes: Usama brian -21 (Same as: l 19:52: Zofran) Bucky 00 MEDICATION WASTE Product Size: 4 mg Product Wasted: ___ mg 72 HR 2017-07 No Notes: Memoria Scopolamine 08-18 Change l 0.0139 19:52: patch Bucky MG/HR 00 every 72 Transdermal hours Patch (Same as: Transderm- Scop) Lorazepam 2017-07 No Notes: Memori a - (Same as: l 19:52: Ativan) Bucky 00 Labetalol 2017-07 No Notes: Memori a - (Same as: l 19:52: Normodyne, [place] 00 Trandate) Push over 2 minutes Give bolus over 2-3 minutes. Hydralazine 2017-07 No Notes: Usama brian 08-18 (Same as: l 19:52: Apresoline ) Push over 5 minutes ANES 2017-07 No Notes: Memoria Enalaprilat 08-18 (Same as: l 19:52: Vasotec-IV ) esmolol 2017-07 No Notes: Memoria - (Same as: l 19:52: Brevibloc) Bucky 00 [...] kg, Priority: STAT, Start date: 06/18/18 10:34:00 GRAINING MACHINE OPERATOR, Stop date: 06/18/18 10:34:00 GRAINING MACHINE OPERATOR Dilaudid 2017-07 No Notes: Memoria 08-18 Same as l 16:18: Dilaudid Bucky 00 Hydromorpho 2017-07 No Notes: Usama brian ne 08-18 Same as: l 15:17: Dilaudid [place] 00 Sodium 2017-07 No 1,000 mL, Memori a Chloride 08-18 1000 l 0.9% 15:17: ml/hr, [place] (Bolus) IV 00 Infuse Over: 1 hr, Route: IV, 1,000, Drug form: INJ, ONCE, Priority: STAT, Dosing Weight 108.227 kg, Start date: 06/18/18 9:17:00 GRAINING MACHINE OPERATOR, Stop date: 06/18/18 9:17:00 GRAINING MACHINE OPERATOR MiraLax Yes Edozie 17 gm, PO, Me moria oral powder 08-05 Brian Daily, # l for 17:17: Akunyili 527 gm, 0 Herm sary reconstitut 00 Refill(s) ion magnesium No Edozie 300 mL, Mem oria citrate 08-05 Brian Route: PO, l 15:00: Akunyili Drug Form: Her caballero 00 LIQ, Dosing Weight 81.818, kg, ONCE, Start date: 08/05/13 9:00:00, Stop date: 08/05/13 9:00:00([facility] as: Citrate of Magnesia) lithium 300 Yes 0 Memori a mg oral 1-08 Refill(s) l tablet 14:43: Bucky 00 trazodone Yes 0 Memoria 100 mg oral 1-08 Refill(s) l tablet 14:42: Bucky 00 Vital Signs Vital Name Observation Time Observation Value Comments Source Heart Rate 2019-09-04 06:38:00 [facility] [place] Respitory Rate 2019-09-04 06:38:00 Memori al [place] Systolic (mm Hg) 2019-09-04 06:38:00 Usama rial Bucky Diastolic (mm Hg) 2019-09-04 06:38:00 Mem orial [place] Systolic (mm Hg) 2019-09-04 03:36:00 Usama rial B[place] Diastolic (mm Hg) 2019-09-04 03:36:00 Mem orial [place] Heart Rate 2019-09-04 03:36:00 [facility] [place] Respitory Rate 2019-09-04 03:36:00 Memori al [place] Height 2019-09-04 03:36:00 152.4 cm Memorial Bucky BMI Calculated 2019-09-04 03:36:00 Memori al [place] Weight 2019-09-04 03:36:00 [facility] [place] Respitory Rate 2018-07-07 13:20:00 Memori al [place] Systolic (mm Hg) 2018-07-07 13:20:00 Usama rial [place] Diastolic (mm Hg) 2018-07-07 13:20:00 Mem orial [place] Systolic (mm Hg) 2018-07-07 12:15:00 Usama rial Bucky Diastolic (mm Hg) 2018-07-07 12:15:00 Mem orial B[place] Respitory Rate 2018-07-07 12:15:00 Memori al [place] Respitory Rate 2018-07-07 11:30:00 Memori al [place] Systolic (mm Hg) 2018-07-07 11:30:00 Usama rial [place] Diastolic (mm Hg) 2018-07-07 11:30:00 Mem orial Bucky Heart Rate 2018-07-07 10:56:00 [facility] [place] Weight 2018-07-07 10:09:00 [facility] [place] BMI Calculated 2018-07-07 10:09:00 Memori al B[place] Height 2018-07-07 10:09:00 152.4 cm Memorial [place] Heart Rate 2018-07-07 10:09:00 [facility] [place] Temperature Oral (F) 2018-06-20 13:00:00 97.6 F [facility] [place] Heart Rate 2018-06-20 13:00:00 [facility] B[place] Respitory Rate 2018-06-20 13:00:00 Memori al [place] Systolic (mm Hg) 2018-06-20 13:00:00 Usama rial Bucky Diastolic (mm Hg) 2018-06-20 13:00:00 Mem orial [place] Respitory Rate 2018-06-20 09:52:00 Memori al [place] Heart Rate 2018-06-20 09:52:00 [facility] [place] Systolic (mm Hg) 2018-06-20 09:52:00 Usama rial [place] Diastolic (mm Hg) 2018-06-20 09:52:00 Mem orial [place] Temperature Oral (F) 2018-06-20 09:52:00 98.1 F Memorial [place] Respitory Rate 2018-06-20 06:37:00 Memori al B[place] Systolic (mm Hg) 2018-06-20 06:37:00 Usama rial [place] Diastolic (mm Hg) 2018-06-20 06:37:00 Mem orial Bucky Heart Rate 2018-06-20 06:37:00 Memorial B[place] Temperature Oral (F) 2018-06-20 06:37:00 98.3 F [facility] [place] Height 2018-06-18 21:16:00 152.4 cm [facility] [place] BMI Calculated 2018-06-18 21:16:00 Memori al B[place] Weight 2018-06-18 21:16:00 [facility] [place] BMI Calculated 2018-06-18 20:01:00 Memori al [place] Weight 2018-06-18 20:01:00 [facility] [place] Height 2018-06-18 20:01:00 152.4 cm [facility] [place] Weight 2018-06-18 15:13:00 [facility] [place] Respitory Rate 2013-08-05 17:40:00 Memori al [place] Systolic (mm Hg) 2013-08-05 17:40:00 Usama rial [place] Diastolic (mm Hg) 2013-08-05 17:40:00 Mem orial Bucky Heart Rate 2013-08-05 17:40:00 [facility] [place] Weight 2013-08-05 14:18:00 [facility] [place] Height 2013-08-05 14:18:00 152.4 cm [facility] [place] Respitory Rate 2013-08-05 14:18:00 Memori al [place] Heart Rate 2013-08-05 14:18:00 [facility] [place] Diastolic (mm Hg) 2013-08-05 14:18:00 Mem orial [place] Systolic (mm Hg) 2013-08-05 14:18:00 Usama rial [place] Procedures Procedure Date / Time Performed Performing Clinician Sourc e Cholecystectomy [facility] Dissection tonsillectomy Memoria l [place] Encounters Start End Encounter Admission Attending Care Care Encounter Source Date/Time Date/Time Type Type Clinicians Facility Department ID 2019-09-03 2019-09-04 Outpatient KENN Glynn [id number] 21:28:05 01:05:00 Julee Smith 03 2019-09-03 2019-09-03 Emergency E MHTW MHTW [id number] MHTW 21:28:00 21:28:00 2018-07-07 2018-07-07 Outpatient KENN Jensen [facility] [id number] 04:08:00 07:36:00 Miguel 02 Nimesh 2018-06-18 2018-06-20 Outpatient KENN Wayne [facility] [id number] 08:57:00 14:33:00 Jackie 01 2013-08-05 2013-08-05 Outpatient REYNALDOIE RICHARD [id number] Memoria 08:12:00 11:42:00 00 l Bucky [facility] Results Test Description Test Time Test Comments Results Result Sourc e Comments IMMUNOLOGY 2019-09-04 Negative Memorial 05:39:00 (09/03/19 11:39 Bucky PM) RAPID 2019-09-04 Negative Memorial 05:39:00 (09/03/19 11:39 Bucky PM) CHEM PANEL 2018-07-07 10:55:00 Test Item Value Reference Range Interpretation Comme nts A/G Ratio (test code = A/G Ratio) 1.1 1 0.7-1.6 [facility] [id number] 10:55:003.8[facility]annCHEM PANEL 2018-07-07 10:55:0029[facility]annCHE[facility] [id number] 10:55:0018[facility]annCHE[facility] XVVKP9749-35-63 10:55:003.6[facility] LJOSR4430-64-33 10:55:000.2[facility]CHE[facility] GOGQB9450-20-96 10:55:0091[facility] OMLDQ4541-31-55 10:55:00<0.1[facility]annCHE[facility] LHQDK5285-75-25 10:55:007.4 [facility] KAVBL3971-72-78 10:55:87310Sfqwanfs HermannELECTROLYTES 2018-07-07 10:55:0013.7[facility]orial LhlhpdtIRNNVYJQJQZP9286-23-60 10:55:06288 Memorial CrkjruwYDFRQRBYPXYW8076-87-62 10:55:000.61[facility] HermannELECTROLYTES 2018-07-07 10:55:0011[facility] UmdqmyqXDAXHVJYHHEF6157-76-57 10:55:0093[facility] NdlohsdLHIFJTYJODFH4895-17-10 10:55:0026[facility] UcnjresRLBPGMSDMJOF7461-00-44 10:55:61922Ayyohqls LhsprbcTWVXRDEBHXUV9324-63-48 10:55:003.7[facility] PSQDPCKHAHKA7950-14-86 10:55:35578Jgvbbjfq GofulizRARUNNZZMYUX9536-72-24 10:55:008.9[facility] GglrjxaZXGLOQSNJAPAJ7356-66-35 10:55:00Negative *NA*(07/07/18 4:55 AM)[facility] AmfsvafLLIRLQTHPR9078-50-05 10:55:008.1[facility] CyruibmZEZFVEDFBQ8139-43-93 10:55:44250Yjcfiufh WbngfrpJIVNVHJIBB2743-93-53 10:55:00 Test Item Value Reference Range Interpretation Comments MCH (test code = MCH) 28.6 pg 27.0-31.0 Memorial AnpkibmTMGJMOZCOM7572-08-30 10:55:0033.4[facility] HermannHEMATOLOGY 2018-07-07 10:55:0085.6[facility] PrjakmgELDBAHKXIK8201-62-78 10:55:0039.9[facility] AwntrbxUWTOXMGLDA1070-76-58 10:55:0013.7[facility] UcnzljrEJKUYLRZQA0824-38-44 10:55:004.66[facility] UchrjxlBYGVNNKGBH4205-09-62 10:55:0013.3[facility] [place] KSIWTGPFLA3303-84-55 10:55:0013.5[facility] FutoetrMFFEXKCIKV1209-48-28 10:55:00 0.2[facility]orial ZpwbjrpGKEXNEGDKY7618-92-64 10:55:0061.9[facility] HermannHEMATOLOGY 2018-07-07 10:55:008.4[facility] NltorfiDIYXOVTRYV8081-56-35 10:55:000.3[facility] EsjdyebFEATHMUEWV5477-23-41 10:55:004.2[facility] XghwsxiFQUBOPGCXX3683-46-75 10:55:000.7[facility] RozmeppVBAHHSVQLB1936-46-52 10:55:0031.0[facility] [place] ZEXMNCSZDQ4904-49-85 10:55:005.4[facility] WdwssemCPMFLRTCEJ3628-42-71 10:55:001.4 [facility]ann[facility] AND XDLNE9877-58-35 10:55:002[facility] AND LFLIJ4630-91-09 10:55:00<1[facility] AND FYXCL4510-19-73 10:55:00 Test Item Value Reference Range Interpretation Comments UA Spec Grav (test code = UA Spec 1.014 1 Grav) [facility] [id number] 10:55:00Clear (07/07/18 4:55 AM) [facility] FOQTV6373-41-72 10:55:00Yellow *NA*(07/07/18 4:55 AM) [facility] [id number] 10:55:00 Test Item Value Reference Range Interpretation Comments UA pH (test code = UA pH) 5.5 1 5.0-8.0 [facility] [id number] 10:55:00Negative (07/07/18 4:55 AM) [facility] IDHNN7599-03-93 10:55:00Negative (07/07/18 4:55 AM) [facility] KQOQJ0959-91-66 10:55:00Negative (07/07/18 4:55 AM) [facility] CNLDS5262-09-09 10:55:00Negative *NA*(07/07/18 4:55 AM)[facility] OalpsmaJBTHQXOGWM1708-24-63 09:40:008.0[facility] HermannHEMATOLOGY 2018-06-20 09:40:24853Lfbtrbwy XgilswmQUGXZWGYIB0810-25-13 09:40:00 Test Item Value Reference Range Interpretation Comments MCH (test code = MCH) 29.2 pg 27.0-31.0 Memorial NtqmdfeJMJHXGDJMQ9406-67-13 09:40:0086.7[facility] HermannHEMATOLOGY 2018-06-20 09:40:0011.6[facility] KtckroqJRTBNLNDVK5263-93-62 09:40:0034.4[facility] CxliajaUBKHIAQPHS2191-23-23 09:40:0010.3[facility] IselknvMEQRSMKAMQ7155-45-70 09:40:003.97[facility] MhazeiuMPGLOWVHBG8715-25-15 09:40:0014.3[facility] OKGFSQUHZE0797-39-46 09:40:0033.7[facility] HermannCHEM LZXKL3304-51-19 16:37:00 130[facility]annCHEM XELWH5989-30-33 16:37:003.1[facility] HermannCHEM PANEL 2018-06-19 16:37:00 Test Item Value Reference Range Interpretation Comments A/G Ratio (test code = A/G Ratio) 1.0 1 0.7-1.6 [facility]CHE[facility] [id number] 16:37:0021[facility] HermannCHEM PANEL 2018-06-19 16:37:0011.8[facility] HermannCHEM UFCID3808-28-27 16:37:00 Test Item Value Reference Range Interpretation Comments B/C Ratio (test code = B/C Ratio) 13 1 6-25 [facility]annCHE[facility] [id number] 16:37:0069[facility]annCHEM PANEL 2018-06-19 16:37:000.3[facility]annCHEM RTZGA2913-85-23 16:37:0025[facility]annCHEM RWHCV0563-51-45 16:37:008.4[facility]annCHEM TQSVY8316-79-18 16:37:0024[facility]annCHEM YUSZV4497-12-07 16:37:006.1[facility]annCHEM JMDPP3364-86-18 16:37:003.0[facility]annCHEM YVUGE9736-41-14 16:37:000.61 [facility]annCHE[facility] ZOTOA3900-47-61 16:37:32484Vjdhylyo HermannCHEM PANEL 2018-06-19 16:37:67006Zcdvsbta HermannCHEM JNLVG8196-08-31 16:37:003.8[facility] HermannCHEM YEVZG9617-10-66 16:37:008[facility]annCHEM YCRIP5283-36-01 16:37:37552Wilxzhsr PziaefuYXJSNSXZKG0889-48-59 16:37:0012.6[facility] [place] QLDSZXLUUT6732-28-39 16:37:0012.2[facility] QpfnacgCDBYEXFHMX7227-36-72 16:37:00 4.31[facility] EbhvazvUQJDDLRRMP1270-51-05 16:37:0037.1[facility] HermannHEMATOLOGY 2018-06-19 16:37:00 Test Item Value Reference Range Interpretation Comments MCH (test code = MCH) 28.4 pg 27.0-31.0 Memorial FnbjhdwQRSOQASGVO5221-95-06 16:37:0086.0[facility] HermannHEMATOLOGY 2018-06-19 16:37:06533Ofsvgcla XqgdxhiANTTPUXDJN3925-59-71 16:37:0033.0[facility] PnpofciXKNNJOCIXA8597-17-35 16:37:0014.4[facility] PbsqzfzVXJODDDXZZ5550-13-41 16:37:007.9[facility] HermannCHEM WLGFC7249-57-07 15:23:29805Xpcpjjoy HermannCHEM KQRKW2369-89-68 15:23:00<0.1[facility]annCHEM GQQND8529-62-40 15:23:000.2 [facility]annCHE[facility] BNTJY5526-20-48 15:23:0083[facility] HermannCHEM PANEL 2018-06-18 15:23:003.5[facility]annCHEM XTTNZ1007-05-82 15:23:0024[facility] HermannCHEM ZBZYU4531-44-66 15:23:003.7[facility] HermannCHEM OZYWB2791-59-76 15:23:0015[facility] HermannCHEM ASHFQ8722-10-79 15:23:00 Test Item Value Reference Range Interpretation Comments A/G Ratio (test code = A/G Ratio) 0.9 1 0.7-1.6 [facility]annCHEM [id number] 15:23:007.2[facility] HermannELECTROLYTES 2018-06-18 15:23:0012.8[facility] OijtczhKTOYNGOQDTNP0328-84-91 15:23:18741 Memorial NfdzzkpCNVMBGTYJAHJ1316-69-41 15:23:009.0[facility] HermannELECTROLYTES 2018-06-18 15:23:0021[facility] DyhbzvsXTLSUGOWRAXB3504-53-28 15:23:62329Jqdmrzvb EbpykraHADYNBIDFTEQ7067-28-58 15:23:003.8[facility] OmnaegfVZFEJHHJHOFK7109-35-51 15:23:72043Kdptcehs TlrnolrAPJJSLKHUURJ1431-26-65 15:23:000.65[facility] HSTWINHLIDYZ3886-68-03 15:23:0011[facility] UxzxxuiPWCACMNYSENB2834-14-43 15:23:00 99[facility] OnfggssUTXPUEEWSNPFH0239-67-84 15:23:00Negative *NA*(06/18/18 9:23 AM)[facility] FdbkiuhZQBZLASPAL9647-73-26 15:23:000.1[facility] 2018-06-18 15:23:000.2[facility] CdhfiutPRXUTXGPHQ7383-13-74 15:23:000.8[facility] TfxiqfsWOMKAJNRLP1424-55-97 15:23:000.6[facility] PdjpiidXWXQZPEJWJ7829-58-82 15:23:003.0[facility] TyljkedZLBCMVKHTQ4237-79-36 15:23:006.3[facility] [place] BPXLBRVAAA0562-76-47 15:23:007.4[facility] FytbkmaYWYTKQLXRL1758-46-21 15:23:002.2 [facility] FcewibfNRCXXAFKHI9367-05-46 15:23:0060.8[facility]OLOGY 2018-06-18 15:23:0029.0[facility] RnqbmbcELBBITRPNZ9662-63-92 15:23:0013.8[facility] CfvjvizAACVUBCFRE2874-59-05 15:23:004.84[facility] TquughcDYJPCBBCRO6351-07-96 15:23:0010.4[facility] AazpbsnZRSZGIFUOV3416-65-50 15:23:0041.8[facility] ISGLINFZUC7490-92-57 15:23:008.1[facility] GmtgtitUWZDISJVOT8071-84-77 15:23:54096 [facility] HsgtkofKJUPIDIABQ1996-42-41 15:23:0014.1[facility]annHE[facility]OLOGY 2018-06-18 15:23:0033.1[facility] LqrmpumBPJAHPVDMN2601-56-81 15:23:00 Test Item Value Reference Range Interpretation Comments MCH (test code = MCH) 28.5 pg 27.0-31.0 [facility] OmxtwbaTSUYMTNAVW6286-75-19 15:23:0086.3[facility] STOOL 2018-06-18 15:23:00<1[facility] YTOJB2986-75-35 15:23:00 Negative (06/18/18 9:23 AM)[facility] VUWYU8238-07-89 15:23:00 Negative (06/18/18 9:23 AM)[facility] FFJDP7954-83-88 15:23:00 Negative (06/18/18 9:23 AM)[facility] RACDG1067-91-19 15:23:00 Negative *NA*(06/18/18 9:23 AM)[facility] WKGXQ9161-24-57 15:23:00Light Yellow *NA*(06/18/18 9:23 AM)[facility] ST[facility]OL 2018-06-18 15:23:00Clear (06/18/18 9:23 AM)[facility] ST[facility]OL 2018-06-18 15:23:001[facility] XGCLG9151-70-03 15:23:00 Test Item Value Reference Range Interpretation Comments UA Spec Grav (test code = UA Spec 1.007 1 Grav) [facility] OAZMQ2548-01-13 15:23:00 Test Item Value Reference Range Interpretation Comments UA pH (test code = UA pH) 5.5 1 5.0-8.0 [facility] SzxdesfVSZZHQOYX5363-08-82 15:35:00Negative (08/05/2013 09:35:00) [facility]
--- OUTSIDE RECORDS SUMMARY | 2020-08-02 11:29 | XMS REPORT | Continuity of Care Document ---
:1995 Author Organization [employer] Care Team Providers Name Role Phone [employer] Unavailable Un available Problems Problem Status Onset Classification Date Comments Sourc e Date Reported Acute 09/04/19 09/06/2019 The pharyngitis, 20 [place] unspecified THROAT ISSUES Active 09/03/19 MH The 20 [place] Right upper 07/15/20 01/24/2019 The quadrant pain 18 [place] Unspecified 07/07/20 01/24/2019 The abdominal pain 18 [place] ABD PAIN Active 07/07/20 The 18 [place] Calculus of 06/25/20 01/07/2019 The gallbladder with 18 [place] acute cholecystitis without obstruction SYMPTOMATIC Active 06/18/20 The CHOLEITHIASIS 18 [place] GALLBLADDER Active 06/18/20 The ISSUES [address] [place] [address] Bipolar Active Problem 08/07/2013 The (qualifier value) [facility] Nausea with 01/24/2019 The vomiting, [place] unspecified Acquired absence 01/24/2019 The of other [place] specified parts of digestive tract Nicotine 01/24/2019 The dependence, [facility] cigarettes, uncomplicated Obesity, 01/07/2019 The unspecified [facility] Bipolar disorder, 01/07/2019 M H The unspecified [place] Body mass index 01/07/2019 The (BMI) 45.0-49.9, [place] adult CALCULUS OF Active The GALLBLADDER W/O [facility] CHOLECYSTITI Medications Medication Details Route Status [...] 17 Inactive H The kg, Asthma, 2019 [place] Start date: 09/04/19 0:45:00 FACTORY ENGINEER, Stop date: 09/04/19 0:45:00 FACTORY ENGINEER, Pediatric Dosing Tylenol Notes: Max Inactive The acetaminophen 2019 [place] 4000 mg/day (4 gm/day). (Same as: Tylenol Extra Strength) Magic Mouthwash Notes: Magic No Longer H The (Benadryl/Lidocai mouth wash Active 2019 [place] ne/Maalox/) 1:1:1 contains:Benadr yl/Lidocaine/Ma alox/) 1:1:1; total volume 5 ml Morphine 4 mg, Route: Inactive The IVP, ONCE, 2017 [place] Dosing Weight 105.085, kg, Priority: STAT, Start date: 07/07/18 4:34:00 FACTORY ENGINEER, Stop date: 07/07/18 4:34:00 FACTORY ENGINEER Ketorolac 15 mg, Route: Inactive The IVP, Drug form: 2017 [place] INJ, ONCE, Dosing Weight 105.085, kg, Priority: STAT, Start date: 07/07/18 4:33:00 FACTORY ENGINEER, Stop date: 07/07/18 4:33:00 FACTORY ENGINEER remove patch Notes: WASTE: Inactive T he F/P - P Waste 2017 [place] Black; E - P Waste Black Habitrol Notes: (Same No Longer The as: Habitrol) Active 2017 [place] "Remove old patch before application of new patch" WASTE: F/P - P Waste Black; E - P Waste Black Acetaminophen 300 See No Longer T he MG / Codeine Instructions, Active 2017 [facility] ands Phosphate 30 MG PRN for pain, Oral Tablet 1-2 tab PO [Tylenol with Q4-6H not to Codeine #3] exceed 4000 mg acetaminophen per day, # 30 tab, 0 Refill(s) Docusate Sodium Notes: (Same No Longer H The 100 MG Oral as: Colace) (Do Active 2017 [facility] Capsule [Colace] Not Crush) chlorhexidine Notes: (Same No Longer The gluconate 40 As: Hibiclens) Active 2017 [facility] MG/ML Medicated Liquid Soap Nicotine Notes: (Same Inactive The as: Habitrol) [place] "Remove old patch before application of new patch" WASTE: F/P - P Waste Black; E - P Waste Black Acetaminophen 300 Notes: Do not No Longer The MG / Codeine exceed 4gm/day Active 2017 [facility] Phosphate 30 MG of Oral Tablet acetaminophen. [Tylenol with (Same as: Codeine #3] Tylenol with Codeine # 3) hydromorphone Route: IV, Drug Inactive H The (ANES) form: INJ, 2017 [place] ONCE, Stop date: 06/18/18 19:26:00 FACTORY ENGINEER ketOROLAC (ANES) IV, ONCE Inactive Th e [place] neostigmine Route: IV, Drug Inactive The (ANES) form: INJ, 2017 [place] , Stop date: 06/18/18 19:26:00 FACTORY ENGINEER glycopyrrolate Route: IV, Drug Inactive The (ANES) form: [id number] ONCE, Stop date: 06/18/18 19:26:00 FACTORY ENGINEER dexamethasone Route: IV, Drug Inactive H The (ANES) form: INJ, [place] ONCE, Stop date: 06/18/18 19:20:00 FACTORY ENGINEER ondansetron Route: IV, Drug Inactive The (ANES) form: INJ, [place] ONCE, Stop date: 06/18/18 19:05:00 FACTORY ENGINEER fentaNYL (ANES) Route: IV, Drug Inactive The form: [id number] ONCE, Stop date: 06/18/18 19:05:00 FACTORY ENGINEER lidocaine (ANES) Route: IV, Drug Inactive The form: [id number] , Stop date: 06/18/18 19:00:00 FACTORY ENGINEER famotidine (ANES) Route: IV, Drug Inactive 06/19 The form: [email or web address] [place] , Stop date: 06/18/18 19:00:00 FACTORY ENGINEER midazolam (ANES) Route: IV, Drug Inactive The form: SOLN, 2017 [place] ONCE, Stop date: 06/18/18 19:00:00 FACTORY ENGINEER rocuronium (ANES) Route: IV, Drug Inactive 06/19 The form: INJ, 2017 [place] ONCE, Stop date: 06/18/18 19:00:00 FACTORY ENGINEER propofol (ANES) Route: IV, Drug Inactive The form: INJ, [place] ONCE, Stop date: 06/18/18 19:00:00 FACTORY ENGINEER fentaNYL (ANES) Route: IV, Drug Inactive The form: INJ, 2017 [place] ONCE, Stop date: 06/18/18 19:00:00 FACTORY ENGINEER Zosyn Notes: (Same No Longer The as: Zosyn) Active 2017 [place] Dosing based on Piperacillin component MEDICATION WASTE Product Size: 3375 mg Product Wasted: ___ mg piperacillin-tazo Route: IV, Drug Inactive 06/19 The bactam (ANES) form: INJ, 2017 [place] ONCE, Stop date: 06/18/18 18:55:00 FACTORY ENGINEER Ondansetron Notes: (Same No Longer Th e as: Zofran) Active 2017 [place] MEDICATION WASTE Product Size: 4 mg Product Wasted: ___ mg Fentanyl Notes: (Same No Longer The as: Sublimaze) Active 2017 [place] Preservative free. Morphine Notes: (Same Inactive The as:MORPhine 2017 [place] Sulfate) Naloxone Notes: Same as No Longer The Narcan Active 2017 [place] Flumazenil Notes: (Same No Longer The as: Romazicon) Active 2017 [place] Lactated Ringers Route: IV, Inactive The Injection IV Total Volume: 2017 [place] (ANES) 1000 mL 1,000, Start date: 06/18/18 18:11:00 FACTORY ENGINEER, Stop date: 06/18/18 19:11:00 FACTORY ENGINEER Lactated Ringers 1,000 mL, Rate: No Longer 06/18 The IV 1,000 mL 40 ml/hr, Active 2017 [place] Infuse over: 25 hr, Route: IV, Dosing Weight 106.136 kg, Total Volume: 1,000, Start date: 06/18/18 17:02:00 FACTORY ENGINEER, Duration: 30 day, Stop date: 07/18/18 17:01:00 FACTORY ENGINEER, 2.17, m2 Fentanyl Notes: (Same Inactive The as: Sublimaze) [address] [place] [address] Preservative free. Naloxone Notes: Same as Inactive The Narcan 2017 [place] Ephedrine Notes: final Inactive The concentration 5 2017 [place] mg/mL Diphenhydramine Notes: (Same Inactive The as: Benadryl) [address] [place] [address] Meperidine Notes: (Same Inactive The as: Demerol) [address] [place] [address] "Use Precaution in Elderly, Seizure disorders, and Renal impairment&quot ; Morphine Notes: (Same Inactive The as:MORPhine [address] [place] [address] Sulfate) Flumazenil Notes: (Same Inactive The as: Romazicon) [address] [place] [address] Oxycodone Notes: (Same Inactive The as: Roxicodone) [address] [place] [address] s Promethazine 6.25 mg, 25 mL, Inactive The Route: IVPB, 2017 [place] Drug form: SOLN, ONCE, Dosing Weight 108.227, kg, PRN Nausea & Vomiting, Start date: 06/18/18 13:52:00 FACTORY ENGINEER Dexamethasone Notes: Inactive The Concentration: 2017 [place] 4mg/ml Ondansetron Notes: (Same Inactive The as: Zofran) [address] [place] [address] MEDICATION WASTE Product Size: 4 mg Product Wasted: ___ mg 72 HR Scopolamine Notes: Change Inactive The 0.0139 MG/HR patch every 72 2017 [facility] Transdermal Patch hours (Same as: Transderm-Scop) Lorazepam Notes: (Same Inactive The as: Ativan) [address] [place] [address] Labetalol Notes: (Same Inactive The as: Normodyne, [address] [place] [address] Trandate) Push over 2 minutes Give bolus over 2-3 minutes. Hydralazine Notes: (Same Inactive The as: Apresoline) [address] [place] [address] s Push over 5 minutes ANES Enalaprilat Notes: (Same Inactive H The as: Vasotec-IV) 2017 [place] esmolol Notes: (Same Inactive The as: Brevibloc) 2017 [place] Acetaminophen Notes: Max Inactive The acetaminophen 2017 [place] 4000 mg/day (4 gm/day). (Same as: Tylenol Extra Strength) Metoprolol Notes: (Same Inactive The as: Lopressor) 2017 [place] Push over 2 minutes Zosyn Notes: (Same Inactive The as: Zosyn) 2017 [place] Dosing based on Piperacillin component MEDICATION WASTE Product Size: 4500 mg Product Wasted: ___ mg Dilaudid Notes: Same as: No Longer Th e Dilaudid Active 2017 [place] Ketorolac 15 mg, Route: Inactive The IVP, Drug form: 2017 [place] INJ, ONCE, Dosing Weight 108.227, kg, Priority: STAT, Start date: 06/18/18 10:34:00 FACTORY ENGINEER, Stop date: 06/18/18 10:34:00 FACTORY ENGINEER Dilaudid Notes: Same as Inactive The Dilaudid 2017 [place] Hydromorphone Notes: Same as: Inactive H The Dilaudid 2017 [place] Sodium Chloride 1,000 mL, 1000 Inactive The 0.9% (Bolus) IV ml/hr, Infuse 2017 [facility] Over: 1 hr, Route: IV, 1,000, Drug form: INJ, ONCE, Priority: STAT, Dosing Weight 108.227 kg, Start date: 06/18/18 9:17:00 FACTORY ENGINEER, Stop date: 06/18/18 9:17:00 FACTORY ENGINEER MiraLax oral 17 gm, PO, Active Bogdanalex The powder for Daily, # 527 2013 [place] reconstitution gm, 0 Refill(s) magnesium citrate 300 mL, Route: Inactive Xander08/05 The PO, Drug Form: 2013 [place] LIQ, Dosing Weight 81.818, kg, ONCE, Start date: 08/05/13 9:00:00, Stop date: 08/05/13 9:00:00(Same as: Citrate of Magnesia) lithium 300 mg 0 Refill(s) Active e oral tablet 2013 [place] trazodone 100 mg 0 Refill(s) Active The oral tablet 2013 [place] Allergies, Adverse Reactions, Alerts Substance Category Reaction Severity Reaction Status Date Comments S ource type Reported morphine Assertion Drug Active e allergy [place] Assertion Drug Active The allergy [place] La[place] Assertion Drug Active e allergy [place] Immunizations No Data Provided for This Section Results Order Name Results Value Reference Date Interpretation Comments Hanh rce Range IMMUNOLOGY [place] Scr Negative Negative 09/04 The (09/03/19 11:39 PM) /2019 [facility] nds RAPID Grp A Strep Negative Negative 09/04 The Scr (09/03/19 11:39 PM) /2019 [facility] nds CHEM PANEL A/G Ratio 1.1 0.7 - 1.6 07/07 The [place] CHEM PANEL Albumin Lvl 3.8 3.5 - 5.0 07/07 The [place] CHEM PANEL ALT 29 0 - 65 07/07 The [place] CHEM PANEL AST 18 0 - 37 07/07 The [place] CHEM PANEL Globulin 3.6 2.7 - 4.2 07/07 The [place] CHEM PANEL Bili Unable to 0.0 - 1.0 07/07 The Indirect Calculate [place] CHEM PANEL Bili Total 0.2 0.2 - 1.3 07/07 The [place] CHEM PANEL Alk Phos 91 39 - 136 07/07 The [place] CHEM PANEL Bili Direct <0.1 0.0 - 0.3 07/07 The [place] CHEM PANEL Total 7.4 6.4 - 8.4 07/07 The Protein [place] CHEM PANEL Lipase Lvl 168 73 - 393 07/07 The [place] ELECTROLYT AGAP 13.7 10.0 - 12 MH The ES 20.0 [place] ELECTROLYT eGFR 130 07/07 Result The ES Comment: [place] eGFR is calculated using the CKD-EPI formula. [...] - 12/10 MH The ES Lvl 1.40 [place] ELECTROLYT BUN 11 7 - 22 12 MH The [place] ELECTROLYT Glucose Lvl 93 70 - 99 12 MH The [place] ELECTROLYT CO2 26 24 - 32 12 MH The [place] ELECTROLYT Chloride Lvl 107 95 - 109 12/ MH The [place] ELECTROLYT Potassium 3.7 3.5 - 5.1 07/07 MH The Lvl [place] ELECTROLYT Sodium Lvl 143 135 - 145 12 MH The [place] ELECTROLYT Calcium Lvl 8.9 8.5 - 10.5 12/10 MH The [place] ENDOCRINOL S Preg Negative Negative 07/07 MH The OGY *NA* /2017 [place] (07/07/18 4:55 AM) HEMATOLOGY MPV 8.1 7.4 - 10.4 07/07 [place] HEMATOLOGY Platelet 311 133 - 450 12/10 MH The [place] HEMATOLOGY MCH 28.6 27.0 - 1210 MH The 31.0 [place] HEMATOLOGY MCHC 33.4 32.0 - 1210 MH The 36.0 [place] HEMATOLOGY MCV 85.6 80.0 - 1210 MH The 98.0 [place] HEMATOLOGY Hct 39.9 36.0 - 1210 MH The 48.0 [place] HEMATOLOGY RDW 13.7 11.5 - 1210 MH The 14.5 /2017 [place] HEMATOLOGY RBC 4.66 4.20 - 12/10 MH The 5.40 /2017 [place] HEMATOLOGY Hgb 13.3 12.0 - 1210 MH The 16.0 /2017 [place] HEMATOLOGY WBC 13.5 3.7 - 10.4 12/10 MH The /2017 [place] HEMATOLOGY Eosinophils 0.2 0.0 - 0.5 12/10 MH The # [place] HEMATOLOGY Segs 61.9 45.0 - 1210 MH The 75.0 [place] HEMATOLOGY Neutrophils 8.4 1.5 - 8.1 12/10 MH The # [place] HEMATOLOGY Basophils 0.3 0.0 - 1.0 12/10 MH The /2017 [place] HEMATOLOGY Lymphocytes 4.2 1.0 - 5.5 1210 MH The # [place] HEMATOLOGY Monocytes # 0.7 0.0 - 0.8 12/ MH The [place] HEMATOLOGY Lymphocytes 31.0 20.0 - 1210 MH The 40.0 [place] HEMATOLOGY Monocytes 5.4 2.0 - 12.0 12/10 MH The /2017 [place] HEMATOLOGY Eosinophils 1.4 0.0 - 4.0 12/10 MH The [place] URINE AND UA <=1.0 0.1 - 1.0 07/07 MH The STOOL Urobilinogen mg/dL /[place] URINE AND UA Mucus Few /LPF None Seen 07/07 The STOOL /LPF /2017 [place] URINE AND UA RBC 2 0 - 2 07/07 MH The STOOL [place] URINE AND UA WBC <1 0 - 5 07/07 MH The STOOL /2017 [place] URINE AND UA Spec Grav 1.014 <=1.030 07/07 MH The STOOL [place] URINE AND UA Turbidity Clear Clear 07/07 The STOOL (07/07/18 4:55 AM) /2017 [place] URINE AND UA Color Yellow Yellow 07/07 The STOOL *NA* /[place] (07/07/18 4:55 AM) URINE AND UA Protein Negative Negative 07/07 The STOOL mg/dL mg/dL lands URINE AND UA pH 5.5 5.0 - 8.0 07/07 The STOOL lands URINE AND UA Ketones Negative Negative 12/10 MH The STOOL mg/dL mg/dL /2017 [place] URINE AND UA Glucose Negative Negative 07/07 The STOOL mg/dL mg/dL /2017 [place] URINE AND UA Leuk Est Negative Negative 07/07 The STOOL (07/07/18 4:55 AM) /2017 [place] URINE AND UA Nitrite Negative Negative 07/07 The STOOL (07/07/18 4:55 AM) /2017 [place] URINE AND UA Sq Epi Moderate Few /LPF 07/07 The STOOL /LPF /2017 [place] URINE AND UA Blood Negative Negative 07/07 The STOOL (07/07/18 4:55 AM) /2017 [place] URINE AND UA Bili Negative Negative 07/07 The STOOL *NA* /2017 [place] (07/07/18 4:55 AM) HEMATOLOGY MPV 8.0 7.4 - 10.4 06/20 The [place] HEMATOLOGY Platelet 241 133 - 450 06/20 The [place] HEMATOLOGY MCH 29.2 27.0 - 06/20 The 31.0 [place] HEMATOLOGY MCV 86.7 80.0 - 06/20 The 98.0 [place] HEMATOLOGY Hgb 11.6 12.0 - 06/20 MH The 16.0 [place] HEMATOLOGY Hct 34.4 36.0 - 06/20 MH The 48.0 [place] HEMATOLOGY WBC 10.3 3.7 - 10.4 06/20 The [place] HEMATOLOGY RBC 3.97 4.20 - 06/20 The 5.40 [place] HEMATOLOGY RDW 14.3 11.5 - 06/20 The 14.5 [place] HEMATOLOGY MCHC 33.7 32.0 - 06/20 The 36.0 [place] CHEM PANEL eGFR 130 06/19 Result Comment: [place] eGFR is calculated using the CKD-EPI formula. [...] Globulin 3.1 2.7 - 4.2 06/19 The [place] CHEM PANEL A/G Ratio 1.0 0.7 - 1.6 06/19 The [place] CHEM PANEL AST 21 0 - 37 06/19 The [place] CHEM PANEL AGAP 11.8 10.0 - 06/19 The 20.0 [place] CHEM PANEL B/C Ratio 13 6 - 25 06/19 The [place] CHEM PANEL Alk Phos 69 39 - 136 06/19 The [place] CHEM PANEL Bili Total 0.3 0.2 - 1.3 06/19 The [place] CHEM PANEL CO2 25 24 - 32 06/19 The [place] CHEM PANEL Calcium Lvl 8.4 8.5 - 10.5 06/19 The [place] CHEM PANEL ALT 24 0 - 65 06/19 The [place] CHEM PANEL Total 6.1 6.4 - 8.4 06/19 The Protein [place] CHEM PANEL Albumin Lvl 3.0 3.5 - 5.0 06/19 The [place] CHEM PANEL Creatinine 0.61 0.50 - 06/19 The Lvl 1.40 [place] CHEM PANEL Chloride Lvl 109 95 - 109 06/19 The [place] CHEM PANEL Sodium Lvl 142 135 - 145 06/19 The [place] CHEM PANEL Potassium 3.8 3.5 - 5.1 06/19 The Lvl [place] CHEM PANEL BUN 8 7 - 22 06/19 The [place] CHEM PANEL Glucose Lvl 124 70 - 99 06/19 The [place] HEMATOLOGY WBC 12.6 3.7 - 10.4 06/19 The [place] HEMATOLOGY Hgb 12.2 12.0 - 06/19 The 16.0 [place] HEMATOLOGY RBC 4.31 4.20 - 06/19 The 5.40 /2017 [place] HEMATOLOGY Hct 37.1 36.0 - 06/19 The 48.0 [place] HEMATOLOGY MCH 28.4 27.0 - 06/19 The 31.0 [place] HEMATOLOGY MCV 86.0 80.0 - 06/19 The 98.0 [place] HEMATOLOGY Platelet 268 133 - 450 06/19 The [place] HEMATOLOGY MCHC 33.0 32.0 - 06/19 The 36.0 [place] HEMATOLOGY RDW 14.4 11.5 - 06/19 The 14.5 [place] HEMATOLOGY MPV 7.9 7.4 - 10.4 06/19 The [place] CHEM PANEL Lipase Lvl 106 73 - 393 06/18 The [place] CHEM PANEL Bili Unable to 0.0 - 1.0 06/18 The Indirect Calculate [place] CHEM PANEL Bili Direct <0.1 0.0 - 0.3 06/18 The [place] CHEM PANEL Bili Total 0.2 0.2 - 1.3 06/18 The [place] CHEM PANEL Alk Phos 83 39 - 136 06/18 The [place] CHEM PANEL Albumin Lvl 3.5 3.5 - 5.0 06/18 The [place] CHEM PANEL ALT 24 0 - 65 06/18 The [place] CHEM PANEL Globulin 3.7 2.7 - 4.2 06/18 The [place] CHEM PANEL AST 15 0 - 37 06/18 The [place] CHEM PANEL A/G Ratio 0.9 0.7 - 1.6 06/18 The [place] CHEM PANEL Total 7.2 6.4 - 8.4 06/18 The Protein [place] ELECTROLYT AGAP 12.8 10.0 - 06/18 MH The ES 20.0 [place] ELECTROLYT eGFR 128 06/18 Result MH The ES /2017 Comment: [place] eGFR is calculated using the CKD-EPI formula. [...] Lvl 9.0 8.5 - 10.5 06/18 The [place] ELECTROLYT CO2 21 24 - 32 06/18 MH The [place] ELECTROLYT Sodium Lvl 139 135 - 145 06/18 MH The [place] ELECTROLYT Potassium 3.8 3.5 - 5.1 06/18 The ES Lvl [place] ELECTROLYT Chloride Lvl 109 95 - 109 06/18 The [place] ELECTROLYT Creatinine 0.65 0.50 - 06/18 MH The ES Lvl 1.40 [place] ELECTROLYT BUN 11 7 - 22 06/18 The [place] ELECTROLYT Glucose Lvl 99 70 - 99 06/18 The [place] ENDOCRINOL S Preg Negative Negative 06/18 The OGY *NA* [place] (06/18/18 9:23 AM) HEMATOLOGY Basophils # 0.1 0.0 - 0.2 06/18 [place] HEMATOLOGY Eosinophils 0.2 0.0 - 0.5 06/18 The # [place] HEMATOLOGY Monocytes # 0.8 0.0 - 0.8 06/18 The [place] HEMATOLOGY Basophils 0.6 0.0 - 1.0 06/18 The [place] HEMATOLOGY Lymphocytes 3.0 1.0 - 5.5 06/18 The [place] HEMATOLOGY Neutrophils 6.3 1.5 - 8.1 06/18 The [place] HEMATOLOGY Monocytes 7.4 2.0 - 12.0 06/18 The [place] HEMATOLOGY Eosinophils 2.2 0.0 - 4.0 06/18 The [place] HEMATOLOGY Segs 60.8 45.0 - 06/18 MH The 75.0 /2017 [place] HEMATOLOGY Lymphocytes 29.0 20.0 - 06/18 MH The 40.0 /2017 [place] HEMATOLOGY Hgb 13.8 12.0 - 06/18 The 16.0 /2017 [place] HEMATOLOGY RBC 4.84 4.20 - 06/18 MH The 5.40 /2017 [place] HEMATOLOGY WBC 10.4 3.7 - 10.4 06/18 The /2017 [place] HEMATOLOGY Hct 41.8 36.0 - 06/18 MH The 48.0 [place] HEMATOLOGY MPV 8.1 7.4 - 10.4 06/18 The /2017 [place] HEMATOLOGY Platelet 277 133 - 450 06/18 The [place] HEMATOLOGY RDW 14.1 11.5 - 06/18 The 14.5 [place] HEMATOLOGY MCHC 33.1 32.0 - 06/18 The 36.0 [place] HEMATOLOGY MCH 28.5 27.0 - 06/18 The 31.0 [place] HEMATOLOGY MCV 86.3 80.0 - 06/18 MH The 98.0 [place] URINE AND UA <=1.0 0.1 - 1.0 06/18 The STOOL Urobilinogen mg/dL /2017 [place] URINE AND UA WBC <1 0 - 5 06/18 The STOOL /2017 [place] URINE AND UA Sq Epi Few /LPF Few /LPF 06/18 The STOOL /2017 [place] URINE AND UA Leuk Est Negative Negative 06/18 The STOOL (06/18/18 9:23 AM) /2017 [place] URINE AND UA Blood Negative Negative 06/18 The STOOL (06/18/18 9:23 AM) /2017 [place] URINE AND UA Nitrite Negative Negative 06/18 The STOOL (06/18/18 9:23 AM) /2017 [place] URINE AND UA Ketones Negative Negative 06/18 The STOOL mg/dL mg/dL [place] URINE AND UA Bili Negative Negative 06/18 The STOOL *NA* /2017 [place] (06/18/18 9:23 AM) URINE AND UA Color Light Yellow Yellow 06/18 The STOOL *NA* /2017 [place] (06/18/18 9:23 AM) URINE AND UA Turbidity Clear Clear 06/18 MH The STOOL (06/18/18 9:23 AM) /2017 [place] URINE AND UA RBC 1 0 - 2 06/18 MH The STOOL /2017 [place] URINE AND UA Protein Negative Negative 06/18 MH The STOOL mg/dL mg/dL /2017 [place] URINE AND UA Glucose Negative Negative 06/18 The STOOL mg/dL mg/dL /2017 [place] URINE AND UA Spec Grav 1.007 <=1.030 06/18 The STOOL /2017 [place] URINE AND UA pH 5.5 5.0 - 8.0 06/18 MH The STOOL /2017 [place] CHEMISTRY U Preg Negative Negative 08/05 Normal MH The (08/05/2013 09:35:00) [facility] Reports No Data Provided for This Section Diagnostic Reports Report Value Date Source ED Abdomen/Pelvis IV CT ABDOMEN AND PELVIS WITH CONTRAST [place] [facility] 07/07/2018. 07/07/[address] [place] [address] CLINICAL INDICATION: Acute r [...] US Clinical Indication: - RUQ pain; 06/18/2018 [facility] Comparison: None TECHNIQUE: Grayscale and limited [...] without evidence of acute chol ecystitis. SL: [id number] Abdomen 2 views Name: VENANCIO GONZALEZ 08/05/2013 [...] Date Comments Source Heart Rate 73 09/04/2019 [facility] Respitory Rate 18 09/04/2019 [facility] [place] Systolic (mm Hg) 130 09/04/2019 [facility] [place] Diastolic (mm Hg) 75 09/04/2019 The [place] Systolic (mm Hg) 134 09/04/2019 The [place] Diastolic (mm Hg) 72 09/04/2019 The [place] Heart Rate 89 09/04/2019 The [place] Respitory Rate 18 09/04/2019 [facility] [place] Height 152.4 cm 09/04/2019 The [place] BMI Calculated 46 09/04/2019 [facility] [place] Weight 106.847 09/04/2019 The [place] Respitory Rate 14 07/07/2018 The [place] [...] [place] Heart Rate 82 07/07/2018 The [place] Weight 105.085 07/07/2018 The [place] BMI Calculated 45.25 07/07/2018 The [place] Height 152.4 cm 07/07/2018 The [place] Heart Rate 90 07/07/2018 The [place] Temperature Oral (F) 97.6 F 06/20/2018 [place] Heart Rate 64 06/20/2018 The [place] Respitory Rate 18 06/20/2018 [facility] [place] Systolic (mm Hg) 95 06/20/2018 [facility] [place] Diastolic (mm Hg) 64 06/20/2018 The [place] Respitory Rate 18 06/20/2018 [facility] [place] Heart Rate 73 06/20/2018 The [place] Systolic (mm Hg) 108 06/20/2018 [facility] [place] Diastolic (mm Hg) 71 06/20/2018 The [place] Temperature Oral (F) 98.1 F 06/20/2018 [place] Respitory Rate 18 06/20/2018 MH The [place] Systolic (mm Hg) 104 06/20/2018 MH The [place] Diastolic (mm Hg) 66 06/20/2018 MH The [place] Heart Rate 85 06/20/2018 The [place] Temperature Oral (F) 98.3 F 06/20/2018 [place] Height 152.4 cm 06/18/2018 MH The [place] BMI Calculated 45.7 06/18/2018 MH The [place] Weight 106.136 06/18/2018 MH The [place] BMI Calculated 46.6 06/18/2018 MH The [place] Weight 108.227 06/18/2018 MH The [place] Height 152.4 cm 06/18/2018 MH The [place] Weight 108.227 06/18/2018 The [place] Respitory Rate 7 08/05/2013 MH The [place] Systolic (mm Hg) 99 08/05/2013 MH The [place] Diastolic (mm Hg) 55 08/05/2013 The [place] Heart Rate 63 08/05/2013 MH The [place] Weight 81.818 08/05/2013 MH The [place] Height 152.4 cm 08/05/2013 MH The [place] Respitory Rate 18 08/05/2013 [facility] Heart Rate 67 08/05/2013 [facility] Diastolic (mm Hg) 76 08/05/2013 [facility] Systolic (mm Hg) 122 08/05/2013 [facility] Encounters Location Location Encounter Encounter Reason Attending ADM ME Stat us Source Details Type Number For Provider Date Date Visit [facility] [id number] PRASHANT EDOZNO 08/05 08/05 Active [facility] [place] [facility] [id number] Jackie 06/18 06/20 [facility] [id number] Miguel 07/07 07/07 [facility] [id number] Julee 09/04 09/04 [facility] /2019 [facility] Procedures Procedure Code Date Perfomer Comments Source Cholecystectomy [id number] [place] [facility] [id number] The tonsillectomy [place] Assessment and Plan Assessment and Plan Date Source Extracted from:Title: Clinical Document 06/20/2018 [facility] Author: Jackie Wayne MD Date: 06/20/18 [...] History Date Source Social History TypeResponse 06/18/2018 [facility] g[place] Alcohol Current, Type Beer, Liquor. Frequency: [...]
[2020-08-02 12:30] LABS: Urine Blood NEGATIVE (NEG); Urine Glucose NEGATIVE (NEG); Urine Protein NEGATIVE (NEG); Urine Specific Gravity 1.015 (1.005-1.030)
[2020-08-02 13:49] LABS: SARS-COV-2 RT PCR NEGATIVE (NEGATIVE)
--- NOTE | 2020-08-02 14:04 | EDPHYS ---
Physician Documentation [facility] Name: Deven Alfaro Age: 25 yrs Sex: Female : 1995 Arrival Date: 08/02/2020 Time: 11:28 Bed 19 Private MD: ED Physician Clive Stern HPI: 08/02 12:15 This 25 yrs old Female presents to ER via Ambulatory with complaints of Sore cp Throat, Nausea. 12:15 The patient or guardian reports cough, that is intermittent. Onset: The cp symptoms/episode began/occurred yesterday. Associated signs and symptoms: Pertinent positives: nausea, sore throat, Pertinent negatives: diarrhea, fever, vomiting. Severity of symptoms: in the emergency department the symptoms are unchanged despite home interventions. 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 - Social history:: Smoking status: Patient reports the use of cigarette tobacco products, smokes one pack cigarettes per day. ROS: 12:20 Constitutional: Negative for chills, fever, poor PO intake. cp 12:20 Eyes: Negative for injury, pain, redness, and discharge. cp 12:20 ENT: Positive for sore throat, Negative for drainage from ear(s), ear pain, difficulty swallowing, difficulty handling secretions. 12:20 Cardiovascular: Negative for chest pain. 12:20 Respiratory: Positive for cough, Negative for shortness of breath, wheezing. 12:20 Abdomen/GI: Positive for nausea, Negative for abdominal pain, vomiting, diarrhea, constipation. 12:20 Neuro: Negative for headache, weakness. 12:20 All other systems are negative. Exam: 12:25 Constitutional: The patient appears in no acute distress, alert, awake, non-toxic, well cp developed, well nourished. 12:25 Head/Face: Normocephalic, atraumatic. cp 12:25 Eyes: Periorbital structures: appear normal, Conjunctiva: normal, no exudate, no injection, Lids and lashes: appear normal, bilaterally. 12:25 ENT: External ear(s): are unremarkable, Ear canal(s): are normal, clear, TM's: bulging, is not appreciated, bilaterally, dullness, bilaterally, erythema, is not appreciated, bilaterally, Nose: is normal, Mouth: Lips: moist, Oral mucosa: moist, Posterior pharynx: Airway: no evidence of obstruction, patent, Tonsils: no enlargement, no exudate, swelling, is not appreciated, erythema, that is mild. 12:25 Neck: Lymph nodes: no appreciated lymphadenopathy. 12:25 Chest/axilla: Inspection: normal, Palpation: is normal, no crepitus, no tenderness. 12:25 Cardiovascular: Rate: normal, Rhythm: regular. 12:25 Respiratory: the patient does not display signs of respiratory distress, Respirations: cp normal, no use of accessory muscles, no retractions, labored breathing, is not present, Breath sounds: bronchial sounds, that are mild, are heard diffusely, decreased breath sounds, are not appreciated, + upper airway congestion. 12:25 Abdomen/GI: Exam negative for discomfort, distension, guarding, Inspection: abdomen appears normal. Vital Signs: 11:45 Pulse 74; Resp 18; Temp 98.3(R); Pulse Ox 98% on R/A; Weight 106.59 kg (R); Height 5 tw2 ft. 0 in. (152.40 cm); Pain 4/10; 11:50 BP 108 / 74; Pulse 73; Resp 16 S; Pulse Ox 96% on R/A; ca1 13:05 BP 113 / 74; Pulse 79; Resp 16 S; Pulse Ox 97% on R/A; ca1 13:50 BP 104 / 81; Pulse 80; Resp 16; Temp 98.1(O); Pulse Ox 97% on R/A; mh5 11:45 Body Mass Index 45.89 (106.59 kg, 152.40 cm) tw2 MDM: 12:06 [facility] 14:03 Data reviewed: vital signs, nurses notes, lab test result(s), and as a result, I will cp discharge patient. 14:03 Differential diagnosis: bronchitis, flu, URI, strep throat. Counseling: I had a cp detailed discussion with the patient and/or guardian regarding: the historical points, exam findings, and any diagnostic results supporting the discharge/admit diagnosis, lab results, to return to the emergency department if symptoms worsen or persist or if there are any questions or concerns that arise at home. 08/02 12:06 Order name: Urine Dipstick--Ancillary (enter results); Complete Time: 13:43 bd 08/02 12:06 Order name: Urine --Ancillary (enter results); Complete Time: 13:43 bd 08/02 12:26 Order name: Strep cp 08/02 12:27 Order name: Group A Streptococcus Rapid Sc; Complete Time: 13:43 EDMS 08/02 13:43 Interpretation: Reviewed. cp 08/02 13:45 Order name: Throat Culture EDOH 08/02 13:49 Order name: COVID-19/FLU A+B EDMS Administered Medications: No medications were administered Disposition: 08/03 06:54 Co-signature as Attending Physician, Clive Stern MD I agree with the assessment and [facility] plan of care. Disposition: 08/02/20 14:04 Discharged to Home. Impression: Acute upper respiratory infection, unspecified. - Condition is Stable. - Discharge Instructions: Upper Respiratory Infection, Adult. - Prescriptions for Tessalon Perles 100 mg Oral Capsule - take 2 capsule by ORAL route every 8 hours As needed; 20 capsule. - Medication Reconciliation Form, Thank You Letter, Antibiotic Education, Prescription Opioid Use, Work release form form. - Follow up: Private Physician; When: 2 - 3 days; Reason: Worsening of condition. - Problem is new. - Symptoms have improved. Signatures: Dispatcher [employer] Clive Quezada MD MD cha Page, Corey, PA PA cp Wise, Tara, RN RN tw2 Sonia Mckinley RN RN ca1 Corrections: (The following items were deleted from the chart) 08/02 13:04 12:27 CORONAVIRUS+MR.LAB.BRZ ordered. [facility] 13:05 12:27 Influenza Screen (A \T\ B)+BA.LAB.BRZ ordered. [facility] EDOH 14:20 14:04 08/02/2020 14:04 Discharged to Home. Impression: Acute upper respiratory ca1 infection, unspecified. Condition is Stable. Forms are Medication Reconciliation Form, Thank You Letter, Antibiotic Education, Prescription Opioid Use. Follow up: Private Physician; When: 2 - 3 days; Reason: Worsening of condition. Problem is new. Symptoms have improved. cp
--- NOTE | 2020-08-02 14:04 | ER ---
Nurse's Notes [facility] Name: Deven Alfaro Age: 25 yrs Sex: Female : 1995 Arrival Date: 08/02/2020 Time: 11:28 Bed 19 Private MD: Diagnosis: Acute upper respiratory infection, unspecified Presentation: 08/02 11:45 Chief complaint: Patient states: i woke up this morning with a really bad sore throat, tw2 i started feeling it last night, i started feel nauseated and feeling hot and really tired lately, like since saturday. Coronavirus screen: cough unrelated to allergies, fatigue, fever, nausea, runny nose, Client presents with at least one sign or symptom that may indicate coronavirus-19. Standard/surgical mask placed on the client. Provider contacted for isolation considerations. Ebola Screen: Patient denies travel to an Ebola-affected area in the 21 days before illness onset. Initial Sepsis Screen: Does the patient meet any 2 criteria? No. Patient's initial sepsis screen is negative. Does the patient have a suspected source of infection? No. Patient's initial sepsis screen is negative. Risk Assessment: Do you want to hurt yourself or someone else? Patient reports no desire to harm self or others. Onset of symptoms was August 02, 2020. 11:45 Method Of Arrival: Ambulatory tw2 11:45 Acuity: SAMI 3 tw2 Triage Assessment: 11:48 General: Appears in no apparent distress. obese, well groomed, Behavior is calm, tw2 cooperative, appropriate for age. Pain: Complains of pain in uvula, left aspect of posterior pharynx and right aspect of posterior pharynx. EENT: Reports nasal congestion nasal discharge. Respiratory: Reports cough that is. 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 - Social history:: Smoking status: Patient reports the use of cigarette tobacco products, smokes one pack cigarettes per day. Screenin:00 Abuse screen: Denies threats or abuse. Denies injuries from another. Nutritional ca1 screening: No deficits noted. Tuberculosis screening: No symptoms or risk factors identified. Fall Risk None identified. Assessment: 12:00 General: Appears in no apparent distress. comfortable, Behavior is calm, cooperative, ca1 appropriate for age. Pain: Denies pain. Neuro: Level of Consciousness is awake, alert, obeys commands, Oriented to person, place, time, situation. Cardiovascular: Heart tones S1 S2 present Capillary refill < 3 seconds Patient's skin is warm and dry. Respiratory: Airway is patent Respiratory effort is even, unlabored, Breath sounds are clear bilaterally. GI: Abdomen is round non-distended, Bowel sounds present X 4 quads. Reports nausea. : No signs and/or symptoms were reported regarding the genitourinary system. EENT: Throat is clear is pink. Derm: Skin is intact, is healthy with good turgor, Skin is pink, warm \T\ dry. Musculoskeletal: Circulation, motion, and sensation intact. Capillary refill < 3 seconds. 13:05 Reassessment: Patient appears in no apparent distress at this time. No changes from bp previously documented assessment. Patient and/or family updated on plan of care and expected duration. Pain level reassessed. 14:00 Reassessment: Patient appears in no apparent distress at this time. Patient is alert, ca1 oriented x 3, equal unlabored respirations, skin warm/dry/pink. Vital Signs: 11:45 Pulse 74; Resp 18; Temp 98.3(R); Pulse Ox 98% on R/A; Weight 106.59 kg (R); Height 5 tw2 ft. 0 in. (152.40 cm); Pain 4/10; 11:50 BP 108 / 74; Pulse 73; Resp 16 S; Pulse Ox 96% on R/A; ca1 13:05 BP 113 / 74; Pulse 79; Resp 16 S; Pulse Ox 97% on R/A; ca1 13:50 BP 104 / 81; Pulse 80; Resp 16; Temp 98.1(O); Pulse Ox 97% on R/A; mh5 11:45 Body Mass Index 45.89 (106.59 kg, 152.40 cm) tw2 ED Course: 11:28 Patient arrived in ED. ag3 11:47 Triage completed. tw2 11:48 Arm band placed on. tw2 11:51 Clive Garcia PA is PHCP. cp 11:51 Clive Stern MD is Attending Physician. cp 11:52 Angel Villarreal, RN is Primary Nurse. bp 12:00 Patient has correct armband on for positive identification. Bed in low position. Call ca1 light in reach. Side rails up X 1. Pulse ox on. NIBP on. Warm blanket given. 14:19 No provider procedures requiring assistance completed. Patient did not have IV access ca1 during this emergency room visit. Administered Medications: No medications were administered Outcome: 14:04 Discharge ordered by . cp 14:19 Discharged to home ambulatory. ca1 14:19 Condition: stable 14:19 Discharge instructions given to patient, Instructed on discharge instructions, follow up and referral plans. medication usage, Demonstrated understanding of instructions, follow-up care, medications, Prescriptions given X 1. 14:20 Patient left the ED. ca1 Signatures: Clive Garcia PA PA cp Wise, Tara, RN RN 2 [facility] Angel Villarreal, RN RN Lisa Russell ag3 Sonia Mckinley RN RN ca1
== END 2020-08-02 14:20 | disposition home or self-care (01) ==
LOC: ER 11:25
DX: J06.9 Acute upper respiratory infection, unspecified (principal); Z20.822 Contact with and (suspected) exposure to COVID-19; F17.210 Nicotine dependence, cigarettes, uncomplicated; Z88.5 Allergy status to narcotic agent; Z88.8 Allergy status to other drugs, medicaments and biological substances
CPT/HCPCS: 87070; 81025; 87081; 81003; 0240U; 99283

== ENCOUNTER 2020-12-28 22:03 | Emergency (ER) | payer BC ==
--- OUTSIDE RECORDS SUMMARY | 2020-12-28 22:07 | XMS REPORT | Continuity of Care Document ---
:1995 Author Organization [facility] t Address [address] [place] [address] Care Team Providers Name Role Phone Sarah Glynn Attending Clinician Nimesh Jensen Jr Attending Clinician Rosana Attending Clinician Rosana Admitting Clinician Problems Condition Condition Condition Status Onset Resolution Last Treating Co mments Source Name Details Category Date Date Treatment Clinician Date THROAT Diagnosis Active 2019-09-07 Mem oria ISSUES -06 13:33:00 l THROAT 00:00: Hadley ISSUES 00 Active 09/03/2019 [facility] ABD PAIN Diagnosis Active 2017-072018-07-07 M emoria 2- 05:31:00 l ABD PAIN 00:00: Michael n 00 Active 07/07/2018 [facility] SYMPTOMATI Diagnosis Active 2017-072018-06-20 Memoria C 08-18 16:07:00 l CHOLEITHIA 00:00: Michael n SIS SYMPTOMATI 00 C CHOLEITHIA SIS Active 06/18/2018 [facility] GALLBLADDE Diagnosis Active 2017-072018-06-18 Memoria R ISSUES 08-18 11:14:00 l 00:00: Hadley GALLBLADDE 00 R ISSUES Active 06/18/2018 [facility] Nausea Problem 2019-01-24 Memor ia with 11:13:49 l vomiting, Nausea Alka nn unspecifie with d vomiting, unspecifie d 01/24/2019 [facility] Acquired Problem 2019-01-24 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:13:49 l other Acquired Michael n specified absence of parts of other digestive specified tract parts of digestive tract 01/24/2019 [facility] Nicotine Problem 2019-01-24 Mem oria dependence 11:13:49 l , Nicotine Michael n cigarettes dependence , , uncomplica cigarettes kecia , uncomplica kecia 01/24/2019 [facility] Obesity, Problem 2019-01-07 Mem oria unspecifie 12:15:48 l d Obesity, Michael n unspecifie d 01/07/2019 [facility] Bipolar Problem 2019-01-07 Usama brian disorder, 12:15:48 l unspecifie Bipolar Her caballero d disorder, unspecifie d 01/07/2019 [facility] Body mass Problem 2019-01-07 Me moria index 12:15:48 l (BMI) Body Bucky 45.0-49.9, mass index adult (BMI) 45.0-49.9, adult 01/07/2019 [facility] Bipolar Problem Active 2013-08-07 Usama brian (qualifier 22:53:36 l value) Bipolar Bucky (qualifier value) Active Problem 08/07/2013 [facility] CALCULUS Diagnosis Active 2018-06-20 M emoria OF 16:07:00 l GALLBLADDE CALCULUS He rmann R W/O OF CHOLECYSTI GALLBLADDE TI R W/O CHOLECYSTI TI Active [facility] History of Past Illness Condition Condition Condition Status Onset Resolution Last Treating Co mments Source Name Details Category Date Date Treatment Clinician Date Acute Problem 2019-09-06 2019-09-06 M emoria pharyngiti 207 22:02:08 22:02:08 l s, Acute 18:00: Hadley unspecifie pharyngiti 00 d s, unspecifie d 09/04/2019 09/06/2019 [facility] Right Problem 2017-072019-01-24 2019-01-24 M emoria upper 2-18 11:13:49 11:13:49 l quadrant Right 04:40: Hadley pain upper 22 quadrant pain 07/15/2018 01/24/2019 [facility] Unspecifie Problem 2017-072019-01-24 2019-01-24 Memoria d 2-10 11:13:49 11:13:49 l abdominal 06:00: Bucky pain Unspecifie 00 d abdominal pain 07/07/2018 01/24/2019 [facility] Calculus Problem 2017-072019-01-07 2019-01-07 Memoria of 08-25 12:15:48 12:15:48 l gallbladde Calculus 04:19: He rmann r with of 08 acute gallbladde cholecysti r with tis acute without cholecysti obstructio tis n without obstructio n 06/25/2018 01/07/2019 [facility] Allergies, Adverse Reactions, Alerts Allergy Allergy Status Severity Reaction(s) Onset Inactive Treating Comm ents Source Name Type Date Date Clinician morphine morphine Active Memori a l Bucky Rochdale Rochdale Active Memoria l Hadley LaMICtal LaMICtal Active Memori a l Bucky Social History Social Habit Start Date Stop Date Quantity Comments Source Social History 2018-06-18 2018-06-18 [facility] jesika 21:14:02 21:14:02 Medications Ordered Filled Start Stop Current Ordering Indication Dosage Frequency Signature Comments Components Source Medication Medication Date Date Medication? Clinician (SIG) Name Name Magic Yes 5 mL, PO, Memoria Mouthwash 2-07 QID, # 100 l (Benadryl/L 06:47: mL, 0 Alka nn idocaine/Ma 00 Refill(s) alox/) 1:1:1 Ibuprofen 2019-0 Yes 800 mg = 1 Me moria 800 MG Oral 2-07 tab, PO, l Tablet 06:46: Q8H, PRN Bucky [Motrin] 00 Pain, Take with food, # 30 tab, 0 Refill(s) Dexamethaso No = 14 kg to Memoria ne 2-07 < 17 kg, l 06:45: Asthma, Bucky 00 Start date: 09/04/19 0:45:00 SPOUT WORKER, Stop date: 09/04/19 0:45:00 SPOUT WORKER, Pediatric Dosing Tylenol 0 No Notes: Max Usama brian 2-07 acetaminop l 03:42: hen 4000 Bucky 00 mg/day (4 gm/day). (Same as: Tylenol Extra Strength) Magic 2019-0 No Notes: Memoria Mouthwash 2-07 Magic l (Benadryl/L 03:41: mouth wash Hadley idocaine/Ma 00 contains:B alox/) enadryl/Li 1:1:1 docaine/Ma alox/) 1:1:1; total volume 5 ml Morphine 2017-07 No 4 mg, Memoria 2-10 Route: l 10:34: IVP, ONCE, Bucky Dosing Weight 105.085, kg, Priority: STAT, Start date: 07/07/18 4:34:00 SPOUT WORKER, Stop date: 07/07/18 4:34:00 SPOUT WORKER Ketorolac 2017-07 No 15 mg, Memori a 2-10 Route: l 10:33: IVP, Drug form: INJ, ONCE, Dosing Weight 105.085, kg, Priority: STAT, Start date: 07/07/18 4:33:00 SPOUT WORKER, Stop date: 07/07/18 4:33:00 SPOUT WORKER remove 2017-07 No Notes: Memoria patch 08-20 WASTE: F/P l 21:00: - P Waste Hadley 00 Black; E - P Waste Black Habitrol 2017-07 No Notes: Memoria 08-19 (Same as: l 22:00: Habitrol) Hadley "Remove old patch before applicatio n of new patch" WASTE: F/P - P Waste Black; E - P Waste Black Acetaminoph 2017-07 No See Memori a en 300 MG / 08-19 Instructio l Codeine 19:33: ns, PRN Bucky Phosphate 00 for pain, 30 MG Oral [...] gluconate 15:00: Hibiclens) He rmann 40 MG/ML Medicated Liquid Soap Nicotine 2017-07 No Notes: Memoria 08-19 (Same as: l 07:00: Habitrol) Bucky 00 "Remove old patch before applicatio n of new patch" WASTE: F/P - P Waste Black; E - P Waste Black Acetaminoph 2017-07 No Notes: Do M emoria en 300 MG / 08-19 not exceed l Codeine 02:19: 4gm/day of Herm 00 acetaminop 30 MG Oral hen. Tablet (Same as: [Tylenol Tylenol with with Codeine #3] Codeine # 3) hydromorpho 2017-07 No Route: IV, Memoria ne (ANES) 08-19 Drug form: l 01:26: INJ, ONCE, Stop date: 06/18/18 19:26:00 SPOUT WORKER ketOROLAC 2017-07 No IV, ONCE Usama brian (ANES) 08-19 l 01:26: Hadley 00 neostigmine 2017-07 No Route: IV, Memoria (ANES) 08-19 Drug form: l 01:26: INJ, ONCE, Stop date: 06/18/18 19:26:00 SPOUT WORKER glycopyrrol 2017-07 No Route: IV, Memoria ate (ANES) 08-19 Drug form: l 01:26: INJ, ONCE, Stop date: 06/18/18 19:26:00 SPOUT WORKER dexamethaso 2017-07 No Route: IV, Memoria ne (ANES) 08-19 Drug form: l 01:20: INJ, ONCE, Stop date: 06/18/18 19:20:00 SPOUT WORKER ondansetron 2017-07 No Route: IV, Memoria (ANES) 08-19 Drug form: l 01:05: INJ, ONCE, Stop date: 06/18/18 19:05:00 SPOUT WORKER fentaNYL 2017-07 No Route: IV, Mem oria (ANES) 08-19 Drug form: l 01:05: INJ, ONCE, Stop date: 06/18/18 19:05:00 SPOUT WORKER lidocaine 2017-07 No Route: IV, Me moria (ANES) 08-19 Drug form: l 01:00: INJ, ONCE, Stop date: 06/18/18 19:00:00 SPOUT WORKER famotidine 2017-07 No Route: IV, M emoria (ANES) 08-19 Drug form: l 01:00: INJ, ONCE, Stop date: 06/18/18 19:00:00 SPOUT WORKER midazolam 2017-07 No Route: IV, Me moria (ANES) 08-19 Drug form: l 01:00: SOLN, Hadley 00 ONCE, Stop date: 06/18/18 19:00:00 SPOUT WORKER rocuronium 2017-07 No Route: IV, M emoria (ANES) 08-19 Drug form: l 01:00: INJ, ONCE, Hadley 00 Stop date: 06/18/18 19:00:00 SPOUT WORKER propofol 2017-07 No Route: IV, Mem oria (ANES) 08-19 Drug form: l 01:00: INJ, ONCE, Hadley Stop date: 06/18/18 19:00:00 SPOUT WORKER fentaNYL 2017-07 No Route: IV, Mem oria (ANES) 08-19 Drug form: l 01:00: INJ, ONCE, Hadley Stop date: 06/18/18 19:00:00 SPOUT WORKER Zosyn 2017-07 No Notes: Memoria 08-19 (Same as: l 01:00: Zosyn) Dosing based on Piperacill in component MEDICATION WASTE Product Size: 3375 mg Product Wasted: ___ mg piperacilli 2017-07 No Route: IV, Memoria n-tazobacta 08-19 Drug form: l m (ANES) 00:55: INJ, ONCE, Her caballero Stop date: 06/18/18 18:55:00 SPOUT WORKER Ondansetron 2017-07 No Notes: Usama brian 08-19 (Same as: l 00:32: Zofran) MEDICATION WASTE Product Size: 4 mg Product Wasted: ___ mg Fentanyl 2017-07 No Notes: Memoria 08-19 (Same as: l 00:32: Sublimaze) Preservat tin free. Morphine 2017-07 No Notes: Memoria 08-19 (Same l 00:32: as:MORPhin e Sulfate) Naloxone 2017-07 No Notes: Memoria 08-19 Same as l 00:32: Narcan Flumazenil 2017-07 No Notes: Memor ia 08-19 (Same as: l 00:32: Romazicon) Lactated 2017-07 No Route: IV, Mem oria Ringers 08-19 Total l Injection 00:11: Volume: Alka nn IV (ANES) 00 1,000, 1000 mL Start date: 06/18/18 18:11:00 SPOUT WORKER, Stop date: 06/18/18 19:11:00 SPOUT WORKER Lactated 2017-07 No 1,000 mL, Usama brian Ringers IV 08-18 Rate: 40 l 1,000 mL 23:02: ml/hr, Infuse over: 25 hr, Route: IV, Dosing Weight 106.136 kg, Total Volume: 1,000, Start date: 06/18/18 17:02:00 SPOUT WORKER, Duration: 30 day, Stop date: 07/18/18 17:01:00 SPOUT WORKER, 2.17, m2 Fentanyl 2017-07 No Notes: Memoria 08-18 (Same as: l 19:52: Sublimaze) Preservat tin free. Naloxone 2017-07 No Notes: Memoria 08-18 Same as l 19:52: Narcan Ephedrine 2017-07 No Notes: Memori a 08-18 final l 19:52: concentrat ion 5 mg/mL [...] 2017-07 No 6.25 mg, Me moria e - 25 mL, l 19:52: Route: Bucky 00 IVPB, Drug form: SOLN, ONCE, Dosing Weight 108.227, kg, PRN Nausea & Vomiting, Start date: 06/18/18 13:52:00 SPOUT WORKER Dexamethaso 2017-07 No Notes: Usama brian ne 08-18 Concentrat l 19:52: ion: Hadley 00 4mg/ml Ondansetron 2017-07 No Notes: Usama brian - (Same as: l 19:52: Zofran) MEDICATION WASTE Product Size: 4 mg Product Wasted: ___ mg 72 HR 2017-07 No Notes: Memoria Scopolamine - Change l 0.0139 19:52: patch Bucky MG/HR 00 every 72 Transdermal hours Patch (Same as: Transderm- Scop) Lorazepam 2017-07 No Notes: Memori a - (Same as: l 19:52: Ativan) Hadley 00 Labetalol 2017-07 No Notes: Memori a - (Same as: l 19:52: Normodyne, Trandate) Push over 2 minutes Give bolus over 2-3 minutes. Hydralazine 2017-07 No Notes: Usama brian - (Same as: l 19:52: Apresoline ) Push over 5 minutes ANES 2017-07 No Notes: Memoria Enalaprilat 08-18 (Same as: l 19:52: Vasotec-IV ) esmolol 2017-07 No Notes: Memoria - (Same as: l 19:52: Brevibloc) Acetaminoph 2017-07 No Notes: Max Memoria en 08-18 acetaminop l 19:52: hen 4000 Hadley 00 mg/day (4 gm/day). (Same as: Tylenol Extra Strength) Metoprolol 2017-07 No Notes: Memor ia 08-18 (Same as: l 19:52: Lopressor) Push over 2 minutes Zosyn 2017-07 No Notes: Memoria - (Same as: l 17:11: Zosyn) Dosing based on Piperacill in component MEDICATION WASTE Product Size: 4500 mg Product Wasted: ___ mg Dilaudid 2017-07 No Notes: Memoria - Same as: l 17:11: Dilaudid Ketorolac 2017-07 No 15 mg, Memori a 08-18 Route: l 16:34: IVP, Drug form: INJ, ONCE, Dosing Weight 108.227, kg, Priority: STAT, Start date: 06/18/18 10:34:00 SPOUT WORKER, Stop date: 06/18/18 10:34:00 SPOUT WORKER Dilaudid 2017-07 No Notes: Memoria 08-18 Same [...] Weight 108.227 kg, Start date: 06/18/18 9:17:00 SPOUT WORKER, Stop date: 06/18/18 9:17:00 SPOUT WORKER MiraLax Yes Edozie 17 gm, PO, Me moria oral powder 08-05 Brian Daily, # l for 17:17: Akunyili 527 gm, 0 Herm sary reconstitut 00 Refill(s) ion magnesium No Edozie 300 mL, Mem oria citrate 08-05 Brian Route: PO, l 15:00: Akunyili Drug Form: Her caballero 00 LIQ, Dosing Weight 81.818, kg, ONCE, Start date: 08/05/13 9:00:00, Stop date: 08/05/13 9:00:00([facility] as: Citrate of Magnesia) lithium 300 Yes 0 Memori a mg oral 1-08 Refill(s) l tablet 14:43: Bucky 00 trazodone Yes 0 Memoria 100 mg oral 1-08 Refill(s) l tablet 14:42: Hadley 00 Vital Signs Vital Name Observation Time Observation Value Comments Source Heart Rate 2019-09-04 06:38:00 [facility] Bucky Respitory Rate 2019-09-04 06:38:00 Memori al Bucky Systolic (mm Hg) 2019-09-04 06:38:00 Usama rial Bucky Diastolic (mm Hg) 2019-09-04 06:38:00 Mem orial Bucky Systolic (mm Hg) 2019-09-04 03:36:00 Usama rial Hadley Diastolic (mm Hg) 2019-09-04 03:36:00 Mem orial Hadley Heart Rate 2019-09-04 03:36:00 [facility] Hadley Respitory Rate 2019-09-04 03:36:00 Memori al Bucky Height 2019-09-04 03:36:00 152.4 cm Memorial Bucky BMI Calculated 2019-09-04 03:36:00 Memori al Bucky Weight 2019-09-04 03:36:00 Memorial Bucky Respitory Rate 2018-07-07 13:20:00 Memori al Hadley Systolic (mm Hg) 2018-07-07 13:20:00 Usama rial Hadley Diastolic (mm Hg) 2018-07-07 13:20:00 Mem orial Hadley Systolic (mm Hg) 2018-07-07 12:15:00 Usama rial Bucky Diastolic (mm Hg) 2018-07-07 12:15:00 Mem orial Hadley Respitory Rate 2018-07-07 12:15:00 Memori al Hadley Respitory Rate 2018-07-07 11:30:00 Memori al Hadley Systolic (mm Hg) 2018-07-07 11:30:00 Usama rial Bucky Diastolic (mm Hg) 2018-07-07 11:30:00 Mem orial Hadley Heart Rate 2018-07-07 10:56:00 Memorial Bucky Weight 2018-07-07 10:09:00 Memorial Bucky BMI Calculated 2018-07-07 10:09:00 Memori al Hadley Height 2018-07-07 10:09:00 152.4 cm [facility] Hadley Heart Rate 2018-07-07 10:09:00 [facility] [place] Temperature Oral (F) 2018-06-20 13:00:00 97.6 F [facility] [place]ley Heart Rate 2018-06-20 13:00:00 [facility] [place] Respitory Rate 2018-06-20 13:00:00 Memori al Bucky Systolic (mm Hg) 2018-06-20 13:00:00 Usama rial Hadley Diastolic (mm Hg) 2018-06-20 13:00:00 Mem orial Hadley Respitory Rate 2018-06-20 09:52:00 Memori al Hadley Heart Rate 2018-06-20 09:52:00 [facility] [place]ley Systolic (mm Hg) 2018-06-20 09:52:00 Usama rial Hadley Diastolic (mm Hg) 2018-06-20 09:52:00 Mem orial Bucky Temperature Oral (F) 2018-06-20 09:52:00 98.1 F Memorial Bucky Respitory Rate 2018-06-20 06:37:00 Memori al Bucky Systolic (mm Hg) 2018-06-20 06:37:00 Usama rial Hadley Diastolic (mm Hg) 2018-06-20 06:37:00 Mem orial Bucky Heart Rate 2018-06-20 06:37:00 [facility] Bucky Temperature Oral (F) 2018-06-20 06:37:00 98.3 F [facility] Hadley Height 2018-06-18 21:16:00 152.4 cm [facility] Bucky BMI Calculated 2018-06-18 21:16:00 Memori al Hadley Weight 2018-06-18 21:16:00 [facility] Bucky BMI Calculated 2018-06-18 20:01:00 Memori al Bucky Weight 2018-06-18 20:01:00 [facility] Hadley Height 2018-06-18 20:01:00 152.4 cm Memorial Bucky Weight 2018-06-18 15:13:00 [facility] Bucky Respitory Rate 2013-08-05 17:40:00 Memori al Hadley Systolic (mm Hg) 2013-08-05 17:40:00 Usama rial Bucky Diastolic (mm Hg) 2013-08-05 17:40:00 Mem orial Bucky Heart Rate 2013-08-05 17:40:00 [facility] Hadley Weight 2013-08-05 14:18:00 [facility] Hadley Height 2013-08-05 14:18:00 152.4 cm [facility] Bucky Respitory Rate 2013-08-05 14:18:00 Memori al Hadley Heart Rate 2013-08-05 14:18:00 [facility] Bucky Diastolic (mm Hg) 2013-08-05 14:18:00 Mem orial Bucky Systolic (mm Hg) 2013-08-05 14:18:00 Usama rial Hadley Procedures Procedure Date / Time Performed Performing Clinician Sourc e Cholecystectomy [facility] Hadley Dissection tonsillectomy Memoria l Bucky Encounters Start End Encounter Admission Attending Care Care Encounter Source Date/Time Date/Time Type Type Clinicians Facility Department ID 2019-09-03 2019-09-04 Outpatient KENN Glynn [id number] 21:28:05 01:05:00 Julee Smith 03 2019-09-03 2019-09-03 Emergency E MHTW MHTW [id number] MHTW 21:28:00 21:28:00 2018-07-07 2018-07-07 Outpatient KENN Jensen [facility] [id number] 04:08:00 07:36:00 Miguel 02 Nimesh 2018-06-18 2018-06-20 Outpatient KENN Wayne [facility] [id number] 08:57:00 14:33:00 Jackie 2013-08-05 2013-08-05 Outpatient [facility] [id number] Memoria 08:12:00 11:42:00 Bucky Bucky The 00 l [facility] Results Test Description Test Time Test Comments Results Result Sourc e Comments IMMUNOLOGY 2019-09-04 Negative Memorial 05:39:00 (09/03/19 11:39 Hadley PM) RAPID 2019-09-04 Negative Memorial 05:39:00 (09/03/19 11:39 Hadley PM) CHEM PANEL 2018-07-07 91 Memorial 10:55:00 Hadley CHEM PANEL 2018-07-07 <0.1 Memorial 10:55:00 Bucky CHEM PANEL 2018-07-07 7.4 Memorial 10:55:00 Bucky CHEM PANEL 2018-07-07 168 Memorial 10:55:00 Bucky ELECTROLYTES 2018-07-07 13.7 Memorial 10:55:00 Hadley ELECTROLYTES 2018-07-07 130 Memorial 10:55:00 Bucky ELECTROLYTES 2018-07-07 0.61 Memorial 10:55:00 Hadley ELECTROLYTES 2018-07-07 11 Memorial 10:55:00 Bucky ELECTROLYTES 2018-07-07 93 Memorial 10:55:00 Bucky ELECTROLYTES 2018-07-07 26 Memorial 10:55:00 Hadley ELECTROLYTES 2018-07-07 107 Memorial 10:55:00 Hadley ELECTROLYTES 2018-07-07 3.7 Memorial 10:55:00 Hadley ELECTROLYTES 2018-07-07 143 Memorial 10:55:00 Bucky ELECTROLYTES 2018-07-07 8.9 Memorial 10:55:00 Bucky ENDOCRINOLOGY 2018-07-07 Negative Memorial 10:55:00 *NA*(07/07/18 Hadley 4:55 AM) HEMATOLOGY 2018-07-07 8.1 Memorial 10:55:00 Hadley HEMATOLOGY 2018-07-07 311 [facility] 10:55:00 Hadley HEMATOLOGY 2018-07-07 10:55:00 Test Item Value Reference Range Interpretation Comme nts MCH (test code = MCH) 28.6 pg 27.0-31.0 Memorial [id number] 10:55:0033.4[facility] HermannHEMATOLOGY 2018-07-07 10:55:0085.6[facility] TieakexOHGOZXMTJX1278-78-51 10:55:0039.9[facility] XgomjdrPFEIOHFPKE5796-80-32 10:55:0013.7[facility] OvnadrwHJXRBLCGCK4104-00-76 10:55:004.66[facility] XulmpuuGXJVCVGLSD4771-84-71 10:55:0013.3[facility] Hadley BRDQZLZUMQ4109-50-16 10:55:0013.5[facility] NugccyqCWOKYBMWEH0413-90-59 10:55:00 0.2[facility] CgwkbjzIIPEKQSZAA9817-80-72 10:55:0061.9[facility] HermannHEMATOLOGY 2018-07-07 10:55:008.4[facility] NajyepzLLDQWWSFOT6697-55-42 10:55:000.3[facility] VfcruylMCCVKEYTXW0246-16-69 10:55:004.2[facility] PduemfuKLMHMTVWVF4307-31-54 10:55:000.7[facility] AfsyvhlJPJEIOXIQS4042-29-36 10:55:0031.0[facility] Bucky FDGADVXXYR5371-21-05 10:55:005.4[facility] RyhwygmGGLDEYXKGU6410-63-58 10:55:001.4 [facility] [id number] 10:55:002[facility] [id number] 10:55:00<1[facility] [id number] 10:55:00 Test Item Value Reference Range Interpretation Comments UA Spec Grav (test code = UA Spec 1.014 1 Grav) [facility] [id number] 10:55:00Clear (07/07/18 4:55 AM) [facility] [id number] 10:55:00Yellow *NA*(07/07/18 4:55 AM) [facility] [id number] 10:55:00 Test Item Value Reference Range Interpretation Comments UA pH (test code = UA pH) 5.5 1 5.0-8.0 [facility] [id number] 10:55:00Negative (07/07/18 4:55 AM) [facility] [id number] 10:55:00Negative (07/07/18 4:55 AM) [facility] [id number] 10:55:00Negative (07/07/18 4:55 AM) [facility] [id number] 10:55:00Negative *NA*(07/07/18 4:55 AM)[facility] HermannCHEM [id number] 10:55:00 Test Item Value Reference Range Interpretation Comments A/G Ratio (test code = A/G Ratio) 1.1 1 0.7-1.6 [facility]annCHEM [id number] 10:55:003.8[facility] HermannCHEM PANEL 2018-07-07 10:55:0029[facility] HermannCHEM HQLYC4129-30-31 10:55:0018[facility] HermannCHEM XLXAO4153-52-18 10:55:003.6[facility] HermannCHEM IHDTA3447-78-63 10:55:000.2[facility] UywxvsbGAVEEHHWKW1448-71-81 09:40:008.0[facility] Bucky KTMXRVTSZL5004-49-53 09:40:01172Qgyvhlrv MnrmhfiLHZRRGQSPW2177-07-07 09:40:00 Test Item Value Reference Range Interpretation Comments MCH (test code = MCH) 29.2 pg 27.0-31.0 [facility] FcwhxokGQKCYTRVAJ5741-83-39 09:40:0086.7[facility] HermannHEMATOLOGY 2018-06-20 09:40:0011.6[facility] KheuyxzDPQCVRNCDG4342-39-29 09:40:0034.4[facility] XecjpsrYKLFSKDFHV5479-37-77 09:40:0010.3[facility] MzejahcDMXHCRADNL4546-28-61 09:40:003.97[facility] HerhnxqKIJRKMOTZL8381-13-45 09:40:0014.3[facility] Bucky RAMTLEBQPY2045-75-74 09:40:0033.7[facility] HermannCHEM HDALU0938-43-23 16:37:00 3.0[facility] HermannCHEM DGMDQ2059-93-31 16:37:000.61[facility] HermannCHEM PANEL 2018-06-19 16:37:47971Rfcemfei HermannCHEM IAXYJ4571-42-99 16:37:49348Mbqswvnv HermannCHEM VZGIY6926-70-74 16:37:003.8[facility] HermannCHEM BKYBE1596-64-27 16:37:008[facility] HermannCHEM YQMKW3183-03-39 16:37:32188Wgrbsgws Bucky AWSOLTURIK0860-08-46 16:37:0012.6[facility] BtxtscgUSUEMGDOZR6880-99-00 16:37:00 12.2[facility] EwnvgqkKCVOQIJDPQ3205-11-18 16:37:004.31[facility] HermannHEMATOLOGY 2018-06-19 16:37:0037.1[facility] FxfqdvyMMNJGTXYSG9063-93-08 16:37:00 Test Item Value Reference Range Interpretation Comments MCH (test code = MCH) 28.4 pg 27.0-31.0 Memorial OxkxputRWGCZECJMA2750-02-54 16:37:0086.0[facility] HermannHEMATOLOGY 2018-06-19 16:37:76214Vfrhrzwq LqnlgcxLWYYSUNBJX2436-74-63 16:37:0033.0[facility] OkvowvgMEAJICKROS3625-86-29 16:37:0014.4[facility] UynfkuiMRMZZLMTES9030-08-79 16:37:007.9[facility] HermannCHEM OCCKI9972-61-30 16:37:22376Wipyqqeh HermannCHEM XFNTD9880-18-46 16:37:003.1[facility] HermannCHEM [id number] 16:37:00 Test Item Value Reference Range Interpretation Comments A/G Ratio (test code = A/G Ratio) 1.0 1 0.7-1.6 [facility]annCHEM [id number] 16:37:0021[facility] HermannCHEM PANEL 2018-06-19 16:37:0011.8[facility] HermannCHEM [id number] 16:37:00 Test Item Value Reference Range Interpretation Comments B/C Ratio (test code = B/C Ratio) 13 1 6-25 [facility]annCHEM [id number] 16:37:0069[facility] HermannCHEM PANEL 2018-06-19 16:37:000.3[facility] HermannCHEM [id number] 16:37:0025[facility] HermannCHEM MPGDE8906-44-91 16:37:008.4[facility] HermannCHEM MLCJW3709-12-94 16:37:0024[facility] HermannCHEM WIGXN0247-93-45 16:37:006.1[facility] HermannCHEM HHBIE9487-30-52 15:23:38514Cglficuj HermannCHEM TQMVQ0724-35-80 15:23:00<0.1 [facility] HermannCHEM [id number] 15:23:000.2[facility] HermannCHEM PANEL 2018-06-18 15:23:0083[facility] HermannCHEM TNDDM2627-16-65 15:23:003.5[facility] HermannCHEM VBQHD4212-03-54 15:23:0024[facility] HermannCHEM [id number] 15:23:003.7[facility] HermannCHEM [id number] 15:23:0015[facility] HermannCHEM [id number] 15:23:00 Test Item Value Reference Range Interpretation Comments A/G Ratio (test code = A/G Ratio) 0.9 1 0.7-1.6 [facility] HermannCHEM [id number] 15:23:007.2[facility] HermannELECTROLYTES 2018-06-18 15:23:0012.8[facility] VsqemztPCDSCZLLUFMM4376-62-14 15:23:91058 [facility] NkjhddpYFEGFGLVUUOT9425-42-57 15:23:009.0[facility] HermannELECTROLYTES 2018-06-18 15:23:0021[facility] AujmqhrHZGNQRXMIKEG5054-67-83 15:23:37436Rhiskpxl NtgizvqFDIJOTJEWCHA1839-28-20 15:23:003.8[facility] ZmvxncdVSRYQLHTMSFM5749-37-15 15:23:63180Dltyfops RxuaryvRDVDQEPAPOLB8554-08-96 15:23:000.65[facility] ZJOOCSQAVTYA4101-81-38 15:23:0011[facility] KxszuyfVTJXRHUWPXGE0414-69-36 15:23:00 99[facility] SdwmhipUAWKEVHIHCKSP9595-88-26 15:23:00Negative *NA*(06/18/18 9:23 AM)[facility] MzvnbzlIAQLQWEQLL1445-78-26 15:23:000.1[facility]annHEMATOLOGY 2018-06-18 15:23:000.2[facility] QclwlwnGXZNTCEYLW4104-33-69 15:23:000.8[facility] PvzceinGLYWIAJAUV3317-83-77 15:23:000.6[facility] ZleoigqWNXLCROYND4440-15-62 15:23:003.0[facility] LjoybwdCYDJRYVYXF6528-18-22 15:23:006.3[facility] XPOZWPMAUW8766-60-86 15:23:007.4[facility] LyxuleiYGYQYXZMPV9042-58-31 15:23:002.2 [facility] KoqagtsOVJQYBUIRR7436-45-17 15:23:0060.8[facility] HermannHEMATOLOGY 2018-06-18 15:23:0029.0[facility] PhgsoxfOXQFKODCIV4416-50-76 15:23:0013.8[facility] KzzhilxACCJHBKBIP7160-47-86 15:23:004.84[facility] HohnpliYSHTCSPTHB4636-23-73 15:23:0010.4[facility] BbjshkbKYJOIKYXQX0456-84-61 15:23:0041.8[facility] ZSHTUKCBPB4159-56-04 15:23:008.1[facility] PeubigpFXCTVBPODP1208-77-50 15:23:50427 [facility] NkmsdflHLYXPDUEPY0640-74-43 15:23:0014.1[facility]annHEMATOLOGY 2018-06-18 15:23:0033.1[facility] TpwxmvyBHXSCUHAPK8497-48-48 15:23:00 Test Item Value Reference Range Interpretation Comments MCH (test code = MCH) 28.5 pg 27.0-31.0 [facility] EgmychsNUOHQSKEZY8156-13-51 15:23:0086.3[facility]annURINE AND STOOL 2018-06-18 15:23:00<1[facility]UR[facility] AND FAVST8305-51-85 15:23:00 Negative (06/18/18 9:23 AM)[facility] AND RPUVI7978-08-33 15:23:00 Negative (06/18/18 9:23 AM)[facility] EIAMM9762-59-26 15:23:00 Negative (06/18/18 9:23 AM)[facility] RWAON0524-70-33 15:23:00 Negative *NA*(06/18/18 9:23 AM)[facility] REFBJ2562-65-06 15:23:00Light Yellow *NA*(06/18/18 9:23 AM)[facility] AND STOOL 2018-06-18 15:23:00Clear (06/18/18 9:23 AM)[facility] 2018-06-18 15:23:001[facility] [id number] 15:23:00 Test Item Value Reference Range Interpretation Comments UA Spec Grav (test code = UA Spec 1.007 1 Grav) [facility] [id number] 15:23:00 Test Item Value Reference Range Interpretation Comments UA pH (test code = UA pH) 5.5 1 5.0-8.0 [facility] [id number] 15:35:00Negative (08/05/2013 09:35:00) [facility]
--- NOTE | 2020-12-28 23:09 | ER ---
Nurse's Notes [facility] Name: Deven Alfaro Age: 25 yrs Sex: Female : 1995 Arrival Date: 12/28/2020 Time: 22:10 Bed 24 Private MD: Diagnosis: Muscle spasm of back Presentation: 12/28 22:34 Chief complaint: Patient states: pain in med back, under bra line , on left side , no iw injury , started while at work today. Coronavirus screen: At this time, the client does not indicate any symptoms associated with coronavirus-19. Ebola Screen: Patient negative for fever greater than or equal to 101.5 degrees Fahrenheit, and additional compatible Ebola Virus Disease symptoms Patient denies exposure to infectious person. Patient denies travel to an Ebola-affected area in the 21 days before illness onset. No symptoms or risks identified at this time. Initial Sepsis Screen: Does the patient meet any 2 criteria? No. Patient's initial sepsis screen is negative. Does the patient have a suspected source of infection? No. Patient's initial sepsis screen is negative. Risk Assessment: Do you want to hurt yourself or someone else? Patient reports no desire to harm self or others. Onset of symptoms was December 28, 2020. 22:34 Method Of Arrival: Ambulatory iw 22:34 Acuity: SAMI 4 iw Triage Assessment: 23:15 General: Appears in no apparent distress. Behavior is calm, cooperative. 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 - Social history:: Patient uses Smoking status: Patient reports the use of cigarette tobacco products, smokes one pack cigarettes per day. - Family history:: not pertinent. - Hospitalizations: : No recent hospitalization is reported. Screenin:15 Abuse screen: Denies threats or abuse. Nutritional screening: No deficits noted. cr4 Tuberculosis screening: No symptoms or risk factors identified. Fall Risk None identified. Assessment: 23:15 General: Appears in no apparent distress. Behavior is calm, cooperative, appropriate cr4 for age. Pain: Complains of pain in left subscapular area Pain does not radiate. Pain currently is 6 out of 10 on a pain scale. at worst was 9 out of 10 on a pain scale. Quality of pain is described as aching, Pain began 4 hours ago. Is continuous. Neuro: Level of Consciousness is awake, alert, obeys commands, Oriented to person, place, time, situation, Content Architect are equal bilaterally Moves all extremities. Denies weakness dizziness, headache. Cardiovascular: No deficits noted. Cardiovascular: Patient's skin is warm and dry. Respiratory: No deficits noted. Respiratory: Airway is patent Respiratory effort is even, unlabored. GI: Patient currently denies nausea, pain, vomiting. : No deficits noted. EENT: No deficits noted. Derm: No deficits noted. Musculoskeletal: No deficits noted. Vital Signs: 22:34 BP 114 / 60; Pulse 77; Resp 16; Temp 97.2; Pulse Ox 100% on R/A; Weight 102.97 kg; iw Height 5 ft. 0 in. (152.40 cm); Pain 7/10; 23:15 BP 105 / 71; Pulse 60; Resp 16; Pulse Ox 100% ; Pain 6/10; cr4 22:34 Body Mass Index 44.33 (102.97 kg, 152.40 cm) iw ED Course: 22:10 Patient arrived in ED. am4 22:35 Triage completed. iw 22:36 Arm band placed on. iw 22:48 David Mclean MD is Attending Physician. rn 23:13 Heavenly Ramos, BHUPINDER is Primary Nurse. cr4 23:15 Patient has correct armband on for positive identification. cr4 23:15 No provider procedures requiring assistance completed. Patient did not have IV access cr4 during this emergency room visit. Administered Medications: No medications were administered Outcome: 23:09 Discharge ordered by . rn 23:15 Discharged to home ambulatory. cr4 23:15 Condition: good 23:15 Discharge instructions given to patient, Instructed on discharge instructions, follow up and referral plans. medication usage, Demonstrated understanding of instructions, follow-up care, medications, Prescriptions given X 1. 23:30 Patient left the ED. cr4 Signatures: Izabela Perez RN RN Ramos, Heavenly, RN RN cr4 David Mclean MD MD rn Martinez, Ashley am4
--- NOTE | 2020-12-28 23:09 | EDPHYS ---
Physician Documentation [facility] Name: Deven Alfaro Age: 25 yrs Sex: Female : 1995 Arrival Date: 12/28/2020 Time: 22:10 Bed 24 Private MD: ED Physician David Mclean HPI: 12/28 23:04 This 25 yrs old Female presents to ER via Ambulatory with complaints of upper rn Back Pain. 23:04 The patient presents with pain that is acute, with no known mechanism of injury. The rn symptoms are located in the left subscapular area. The pain does not radiate. The problem was sustained from unknown cause. Onset: The symptoms/episode began/occurred today. Modifying factors: The patient symptoms are alleviated by remaining still, the patient symptoms are aggravated by movement. Associated signs and symptoms: Pertinent negatives: abdominal pain, chest pain, dysuria, fever, hematuria, incontinence, nausea, numbness, tingling, urinary retention, vomiting, weakness. Severity of symptoms: At their worst the symptoms were moderate, in the emergency department the symptoms have improved. The patient has not experienced similar symptoms in the past. The patient has not recently seen a physician. 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 Her boss told her to get evaluated, already feeling a little better. No respiratory symptoms, no fever/cough/chest pain/abd pain/urinary symptoms. No trauma. No pain with deep breath. . 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 - Social history:: Patient uses Smoking status: Patient reports the use of cigarette tobacco products, smokes one pack cigarettes per day. - Family history:: not pertinent. - Hospitalizations: : No recent hospitalization is reported. ROS: 23:04 Constitutional: Negative for fever, chills, and weight loss, Eyes: Negative for injury, rn pain, redness, and discharge, Neck: Negative for injury, pain, and swelling, Cardiovascular: Negative for chest pain, palpitations, and edema, Respiratory: Negative for shortness of breath, cough, wheezing, and pleuritic chest pain, Abdomen/GI: Negative for abdominal pain, nausea, vomiting, diarrhea, and constipation, Back: + left subscapular pain : Negative for injury, bleeding, discharge, and swelling, MS/Extremity: Negative for injury and deformity, Skin: Negative for injury, rash, and discoloration, Neuro: Negative for headache, weakness, numbness, tingling, and seizure. Exam: 23:04 Constitutional: This is a well developed, well nourished patient who is awake, alert, rn and in no acute distress. Head/Face: Normocephalic, atraumatic. Cardiovascular: Regular rate and rhythm. No pulse deficits. Respiratory: No increased work of breathing, no retractions or nasal flaring. Abdomen/GI: soft, non-tender Back: No spinal tenderness. No CVAT. Full range of motion. + mild tenderness left subscapular region with palpation, no swelling or masses Skin: Warm, dry MS/ Extremity: Pulses equal, no cyanosis. Neuro: Awake and alert, GCS 15, oriented to person, place, time, and situation. Motor strength 5/5 in all extremities. Sensory grossly intact. Vital Signs: 22:34 BP 114 / 60; Pulse 77; Resp 16; Temp 97.2; Pulse Ox 100% on R/A; Weight 102.97 kg; iw Height 5 ft. 0 in. (152.40 cm); Pain 7/10; 23:15 BP 105 / 71; Pulse 60; Resp 16; Pulse Ox 100% ; Pain 6/10; cr4 22:34 Body Mass Index 44.33 (102.97 kg, 152.40 cm) iw MDM: 22:48 Patient medically screened. rn 23:04 Differential diagnosis: strain, muscle spasm. Data reviewed: vital signs, nurses notes, rn and as a result, I will discharge patient. Counseling: I had a detailed discussion with the patient and/or guardian regarding: the historical points, exam findings, and any diagnostic results supporting the discharge/admit diagnosis, the need for outpatient follow up, to return to the emergency department if symptoms worsen or persist or if there are any questions or concerns that arise at home. Response to treatment: the patient's symptoms have mildly improved after treatment, and as a result, I will discharge patient. Special discussion: I discussed with the patient/guardian in detail that at this point there is no indication for admission to the hospital. It is understood, however, that if the symptoms persist or worsen the patient needs to return immediately for re-evaluation. Based on the history and exam findings, there is no indication for further emergent testing or inpatient evaluation. I discussed with the patient/guardian the need to see the primary care provider for further evaluation of the symptoms. 23:04 ED course: No indications for emergent imaging in ER, no chest/abdominal/respiratory rn symptoms, normal vitals, will dc home with muscle relaxer as needed. . Administered Medications: No medications were administered Disposition: 12/28/20 23:09 Discharged to Home. Impression: Muscle spasm of back. - Condition is Stable. - Discharge Instructions: Muscle Cramps and Spasms, Back Exercises. - Prescriptions for Cyclobenzaprine 10 mg Oral Tablet - take 1 tablet by ORAL route every 8 hours As needed; 15 tablet. - Medication Reconciliation Form, Thank You Letter, Antibiotic Education, Prescription Opioid Use form. - Follow up: Private Physician; When: As needed; Reason: Recheck today's complaints, Re-evaluation by your physician. - Problem is new. - Symptoms have improved. Signatures: Izabela Perez RN RN iw Heavenly Ramos RN RN cr4 David Mclean MD MD program director/morning show host: (The following items were deleted from the chart) 23:30 23:09 12/28/2020 23:09 Discharged to Home. Impression: Muscle spasm of back. Condition cr4 is Stable. Forms are Medication Reconciliation Form, Thank You Letter, Antibiotic Education, Prescription Opioid Use. Follow up: Private Physician; When: As needed; Reason: Recheck today's complaints, Re-evaluation by your physician. Problem is new. Symptoms have improved. rn
[2020-12-28 23:54] VITALS: BP 114/60; TEMP 97.2; O2SAT 100
== END 2020-12-28 23:30 | disposition home or self-care (01) ==
LOC: ER 22:03
DX: M62.830 Muscle spasm of back (principal); F17.210 Nicotine dependence, cigarettes, uncomplicated; Z88.5 Allergy status to narcotic agent; Z88.8 Allergy status to other drugs, medicaments and biological substances
CPT/HCPCS: 99282